=== PATIENT | male | born 1945 | race Caucasian/White ===

== ENCOUNTER → 2016-07-30 | Outpatient (CLI) | payer OTHER ==
[~2016-07-30] MED LIST: ASPEC81 PO; ASPI81TA28 PO; ATOR10TA88 PO; DOXE10CA PO; GLC500 PO; IBUP-1450 PO; LPT40 PO; LPTUNK; LRT5 PO; METF-384 PO; MULTTAB5 PO; PARO1TAB27 PO; PLV75 PO; PXLUNK; REPA2TAB13 PO; SITA100T3 PO; SUGAR PILL; TEST1GEL15 TOP; TOLT2CAP PO
--- NOTE | 2016-07-31 06:22 | PAP/PSG TECHNICIAN REPORT ---
[facility] Distribution Associate Polysomnogram Report Study name: None Report date: 07/31/2016 Study date: 07/30/2016 Referring Physician: YVETTE FINN Name: HAIDER CASTANEDA Interpreting Physician: Arlin Mendiola M.D. Date of : 1945 Distribution Associate: ALEXANDRA Beltran. Sex: Male Age: 71 Study Type: PSG PAP Weight: 201 lbs Height: 71 years, Height 5' 2.5" BMI: 36.17 Medications: METFORMIN 1000 MG, PAROXETINE 20 MG, DOXEPIN 10 MG, TESTOSTERONE 10 MG/ACT, PRANDIN 2 MG, ATORVASTATIN 10 MG, JANUVIA 100 MG, CENTRUM, ASPIRIN 81 MG Patient History 71 yr-old male here for a BiPAP update study. He has been using BiPAP for about five years. He has experienced a return of daytime sleepiness. He is on an auto BiPAP machine at home. He wears a Wisp nasal mask size small from [email or web address]. Per the order, his pressure was started on 12/10 CMH2O, a pressure differential of 2. The test was started on room air and 12/10 CMH2O. ETCO2 testing could not be utilized during this study with BiPAP in use. Room 1 Parameters Monitored NPSG: E1-M2, E2-M1, Fp1-M2, Fp2-M1, F3-M2, F4-M2, F4-M1, C3-M2, C4-M2, C4-M1, O1-M2, O2-M2, O2-M1, T3-M2, T4-M1, P3-M2, P4-M1, CHIN1, CHIN2, HR, EKG, Legs, PFLOW, SNOR, FLOW, CFLOW, Tidal Volume, THOR, ABDO, SpO2, PLTH, CPRESS, ETCO2 Wave, ETCO2, pH Sleep Architecture Sleep Stages Time at Lights Off 10:16:45 PM STAGES Time (min.) TST (%) Time at Lights On 5:29:15 AM Wake 117.0 -- Total Recording Time (TRT) 432.50 min. N1 108.0 34 Total Sleep Period (TSP) 396.5 min. N2 140.5 45 Total Sleep Time (TST) 315.5min. N3 0.0 0 Awake Time 117.0 min. REM 67.0 21 Wake after Sleep Onset 81.5 min. Sleep Efficiency (SE) 73 % Sleep Onset Latency (CRYSTAL) 35.5 min. Number of Stage 1 Shifts None Awakenings 36 Stage Changes 122 Number of REM periods 5 REM 67.0 21 REM Latency 183.5 min. NREM 248.5 79 Body Position Analysis Supine Right Left Side Prone Vertical Total Sleep Time (min.) 57.7 100.0 186.6 286.63 0.0 0.0 Total Sleep Time (%) 9% 32% 59% 91 0% N/A% Total Sleep Time REM (min.) 0.0 0.0 67.0 None 0.0 0.0 Total Sleep Time NREM (min.) 28.9 100.0 119.6 None 0.0 0.0 Intermittent Wake (min.) 28.8 67.1 21.1 None 0.0 0.0 Total Sleep Period (%) 9% None None None None None Arousals Myoclonus (PLM) * Events Count Index Events Count Index Spontaneous 32 6 Events Awake (PLMW) 246 126.2 Respiratory 49 9.5 Events Asleep w/ Arousal (PLMA) 71 13.5 PLM 71 14 Events Asleep w/o Arousal (PLMS) 476 90.5 Snoring 7 1 Total Asleep 547 104.0 Total 159 30 Total 793 110 Respiratory Analysis * CA OA MA CH H RERA Total Count 46 0 1 0 7 9 54 Index 8.7 0.0 0.2 0 1.3 2 12.0 Mean Duration 13.2 0.0 17.3 0.00 18.3 16.8 14.3 Longest Duration 18.5 0.0 17.3 0.00 17.3 19.9 22.6 Respiratory Event Summary Total Supine ~Supine Right Left Prone REM NREM Apneas Count 47 46 1 0 1 N/A 0 47 Index 8.9 96 0 0.0 0.3 N/A 0 11 Hypopneas (4% Desat) Count 7 5 2 1 1 N/A 0 7 Index 1.3 10.4 0 0.6 0.3 N/A 0.0 1.7 Apneas & All Hypopneas Count 54 51 3 1 2 N/A 0 54 Index 10.3 106 1 1 1 N/A 0.0 13.0 Respiratory Events ([employer]+All Hyp+RERA) Count 54 54 9 3 6 N/A 0 54 Index 12.0 112 2 1.8 1.9 N/A 0.0 15.2 Respiratory Related Arousal Count 49 54 8 3 5 N/A 0 50 Index 9.5 87 2 2 2 N/A 0 12 Snoring Analysis Supine Right Left Prone REM NREM Total Snore duration 8.2 min Snores count 83 45 76 N/A 0 204 204 Snore mean duration 2.4 Sec Snores index 173 27 24 N/A 0.0 49.3 38.8 TST with snoring (%) 2.6% Desaturation Event Summary: Minimum %SpO2 Event Count Mean/Min/Max Duration(sec.) Desaturation Index % Time In Bed > 90 47 17.1 / 8.0 / 60.0 8.6 79.2 86 - 90 0 N/A 0.0 18.7 81 - 85 0 N/A 0.0 2.1 76 - 80 0 N/A 0.0 0.0 71 - 75 0 N/A 0.0 0.0 66 - 70 0 N/A 0.0 0.0 61 - 65 0 N/A 0.0 0.0 56 - 60 0 N/A 0.0 0.0 51 - 55 0 N/A 0.0 0.0 < 50 0 N/A 0.0 0.0 Total REM NREM Awake <50% 0.0 min. 0.0 min. 0.0 min. 0.0 min. 51 - 60% 0.0 min. 0.0 min. 0.0 min. 0.0 min. 61 - 70% 0.0 min. 0.0 min. 0.0 min. 0.0 min. 71 - 80% 0.0 min. 0.0 min. 0.0 min. 0.0 min. 81 - 90% 86.4 min. 40.6 min. 30.9 min. 14.9 min. 91 - 100% 328.9 min. 26.4 min. 214.5 min. 87.9 min. Average 91 90 92 91 Minimum SpO2 81 87 87 81 Desaturation Event Index 6.5 0.0 8.9 6.2 # Desat. Events below 89% 4 N/A 3 1 Time(%) with Saturation below 89% 3.2 0.9 0.1 2.2 Time(min.) with Saturation below 89% 13.2 3.7 0.5 9.1 Time (mins) REM (mins) NREM (mins) % of TST SpO2 Below 90% 30 N/A N30 7.0 SpO2 Below 88% 1 0 0 0 Heart Rate Analysis Min (bpm) Max (bpm) Average (bpm) Awake 40 250 81 NREM 63 127 77 REM 68 85 76 Overall 63 127 76 Supplemental O2 Values Minimum O2 level: None Value Start Time End Time Distribution Associate Comments Mr. Castaneda slept in the right, left, and supine positions. Cardiac arrhythmias were noted (please refer to the printouts). PLMs were noted. No bruxism noted. PAP initiated at an IPAP of +12 CMH2O and an EPAP of +10 CMH2O (as stated in the order), and up-titrated to a level of: IPAP +14 CMH2O, EPAP +9 CMH20, BiFlex 2. A rate was added after he changed to the supine position. He had many central apneas while supine and the rate was set at 14 BPM. He did not have any central apneas while he was on his sides. A Wisp nasal mask size small from [employer] was used during titration He awoke to use the restroom one time during the night. Mr. Castaneda stated that he seemed to get into only light sleep for the night. The final report will be interpreted and signed by a sleep physician. The completed physician report will then be placed in the patient medical record. Therapy Event: Therapy (cm H20) 05/10 13/03 12/02 Total Time at Pressure (min.) 292.0 28.4 112.1 TST at Pressure (min.) 185.0 23.9 106.6 # Periods 1 1 1 Sleep Onset (min.) 35.5 0.0 0.0 REM Onset (min.) 219.0 N/A 68.6 Sleep Efficiency % 63 84 95 Wakefulness (%) 36.6 15.8 4.9 Wakefulness (min.) 107.0 4.5 5.5 NREM 1 (%) 23.6 84.2 13.5 NREM 1 (min.) 69.0 23.9 15.1 NREM 2 (%) 28.4 0.0 51.3 NREM 2 (min.) 83.0 0.0 57.5 NREM 3 (%) 0.0 0.0 0.0 NREM 3 (min.) 0.0 0.0 0.0 REM (%) 11.3 0.0 30.3 REM (min.) 33.0 0.0 34.0 # Arousals 77 55 27 Arousal Index 25.0 138.1 15.2 # Snore 90 75 39 Snore Index 29.2 188.3 22.0 AHI 2.3 110.5 1.7 AHI Supine 106.2 110.5 38.0 AHI Non-Supine 0.3 N/A 1.1 NREM AHI 2.8 110.5 2.5 REM AHI 0.0 N/A 0.0 RDI 4.2 118.0 1.7 # Obstructive 0 0 0 # Central Ap 6 38 2 # Mixed 0 1 0 # Hypopneas 1 5 1 RERAS 6 3 0 Total Respiratory Events 13 47 3 Time Below SpO2 89.00% (min.) 3.7 0.3 0.2 Mean NREM SpO2 (%) 92 92 91 Mean REM SpO2 (%) 90 N/A 91 Mean Sleep SpO2 (%) 91 92 91 Min NREM SpO2 (%) 89 88 87 Min REM SpO2 (%) 87 N/A 89 Position Supine (min.) 3.4 23.9 1.6 Position Non-supine (min.) 181.6 0.0 105.0 LM Index Sleep 138.1 138.1 37.2 LM Index NREM 164.2 138.1 42.2 LM Index REM 18.2 N/A 26.5 Mean Heart Rate (bpm) 79 72 73 Min Heart Rate (bpm) 64 65 63 CPAP REPORT Therapy Detail Time / Page # Comment BiLevel 12/10 cm H2O Nasal Mask Flex Pressure Relief Humidifier on 10:14:45 PM / pg. 213 STARTING ON BIPAP WITH A PRESSURE DIFFERENTIAL OF 2 PER DOCTOR'S ORDER AT 12/10 CMH2O BiLevel 13/10 cm H2O Nasal Mask Flex Pressure Relief Humidifier on 3:08:47 AM / pg. 801 INCREASED IPAP FOR RERAS BiLevel 14/9 cm H2O Nasal Mask Flex Pressure Relief Humidifier on 3:37:10 AM / pg. 857 INCREASED IPAP FOR HYPOPNEAS AND DECREASED EPAP TO GAIN A PRESSURE DIFFERENTIAL OF 5 TO START A RATE FOR CENTRAL APNEAS WHILE SUPINE BiLevel 14/9 cm H2O, Rate 14 bpm Nasal Mask Flex Pressure Relief Humidifier on 3:38:59 AM / pg. 861 ADDED A RATE OF 14 FOR CENTRAL APNEAS WHILE SUPINE
--- NOTE | 2016-08-18 08:39 | POLYSOMNOGRAPH REPORT ---
REFERRING PERSON: YVETTE No. INTERPRETING PHYSICIAN: Dr. Arlin Mendiola. PRODUCTION QUALITY ANALYST: Tierra Funk. Mr. Castaneda is a 71-year-old male for updated BiPAP titration study. He has been using BiPAP for 5 years at home. He has experienced the return of his daytime sleepiness despite use. He uses a small Wisp nasal mask by [employer]. Per the order, this titration study will begin at his home pressure of 12/10. Following the technical and digital specifications of the [employer] ([employer]) a standard diagnostic polysomnogram was performed monitoring EEG, EOG, EMG (chin and leg deviations), oxygen saturation, body position, digital video, respiratory effort and airflow. The sleep Stage and event scoring was based on the AASM Manual for the Scoring of Sleep and Associated Events 2007 edition. Apneas are defined as a drop in the peak thermal sensor excursion by >90% of baseline for at least 10 seconds. Hypopneas were scored using the 4% oxygen desaturation rule (4A-[employer]) and a decrease in the nasal pressure excursions by >30% of baseline for at least 10 seconds. Respiratory effort-related arousal (RERA's) is defined as a sequence of breaths lasting at least 10 seconds characterized by increasing respiratory effort or flattening of the nasal pressure waveform leading to an arousal from sleep when the sequence of breaths does not meet criteria for an apnea or hypopnea. Apnea Hypopnea index (AHI) is defined as the number of apneas and hypopneas occurring in an hour of sleep. Respiratory disturbance index (RDI) is defined as the number of apneas, hypopneas, and RERA's occurring in an hour of sleep. Mr. Castaneda's total sleep period time was 396.5 minutes. Total sleep time was 315.5 minutes. Sleep efficiency was 73%. Latency to sleep onset was 35.5 minutes with wake after sleep onset 81.5 minutes. Total non-REM sleep time was 248.5 minutes. He spent 34% of that time in N1 sleep, 45% in N2 sleep, and no time in N3 sleep. REM latency was 183.5 minutes. Total REM sleep time was 67 minutes or 21% of total sleep time. There were 159 cortical arousals from sleep. 49 of these arousals were due to respiratory events, 71 were due to periodic limb movements of sleep, 7 were due to snoring, and the remaining 32 were spontaneous. There were 547 periodic limb movements noted on this test. Limb movement index was 104. Limb movement with arousal index was 13.5. On this sleep study, there were no obstructive, 46 central, and 1 mixed apnea. There were 7 hypopnea and 9 RERA. Apnea-hypopnea index was 10.3. Supine AHI was 106 and REM AHI was 0. There were 204 snoring events recorded. Total sleep time with snoring was 2.6%. Mean saturation was 91% with desaturations to 81%. Saturations were less than 89 for 13.2 minutes of recording time. As stated above, this was a BiPAP titration study that began on this patient's home pressure of 12/10. On 05/10, this patient had some central apneas and his pressure was increased to 13/10. At 3:05 a.m., this patient flipped to supine sleep and this is when the central started. At 3:38 a.m., the patient was placed on BiPAP S/T with an inspiratory pressure of 14 and expiratory pressure of 9 and a backup rate of 14. This essentially eliminated his central events; however, the patient also flipped to non-supine sleep at the same time. AHI and RDI on this pressure were 1.7. Saturations were less than 89 for only 0.2 minutes of recorded time. He was observed on this pressure for 106.6 minutes. IMPRESSION AND PLAN: Successful BiPAP titration study in this patient with known obstructive sleep apnea. When flipping to supine, this patient developed central apnea on bilevel therapy. Coincidentally, he flipped back to non-supine sleep as well as had the addition of a backup rate placed and his central events markedly improved. Given his unrefreshing sleep on bilevel therapy, I would try this patient on BiPAP S/T with an inspiratory pressure of 14 and expiratory pressure of 9 and a backup rate of 14. A download from his machine can be reviewed in 1 month, both to check compliance as well as AHI, and further pressure adjustments can occur at that time.
== END | disposition home or self-care (01) ==
LOC: C.NEUR 20:00
PROVIDERS: ATTEND Family Medicine
DX: G47.33 Obstructive sleep apnea (adult) (pediatric) (principal); G47.00 Insomnia, unspecified; G47.19 Other hypersomnia

== ENCOUNTER 2016-11-29 11:02 | Inpatient (IN) | payer OTHER ==
[~2016-11-29] VITALS: Ht 162.6 cm; Wt 80.0 kg
[~2016-11-29 11:02] MED LIST changes: -ASPEC81 PO; -ASPI81TA28 PO; -ATOR10TA88 PO; -DOXE10CA PO; -IBUP-1450 PO; -LPT40 PO; -METF-384 PO; -MULTTAB5 PO; -PARO1TAB27 PO; -PLV75 PO; -REPA2TAB13 PO; -SITA100T3 PO; -TEST1GEL15 TOP; -TOLT2CAP PO
[2016-11-29] MEDS ORDERED: ATOR10TA88 PO (12:01)
[2016-11-29] MEDS ORDERED: DOXE10CA PO (12:01)
[2016-11-29] MEDS ORDERED: TOLT2CAP PO (12:01)
[2016-11-29] MEDS ORDERED: ASPI81TA28 PO (12:01)
[2016-11-29] MEDS ORDERED: REPA2TAB13 PO (12:01)
[2016-11-29] MEDS ORDERED: METF-384 PO (12:02)
[2016-11-29] MEDS ORDERED: SITA100T3 PO (12:02)
[2016-11-29] MEDS ORDERED: TEST1GEL15 TOP (12:02)
[2016-11-29] MEDS ORDERED: MULTTAB5 PO (12:02)
[2016-11-29] MEDS ORDERED: IBUP-1450 PO (12:02)
[2016-11-29] MEDS ORDERED: PARO1TAB27 PO (12:02)
--- NOTE | 2016-11-29 12:10 | EMERGENCY ROOM VISIT NOTE ---
History Report prepared by Mirna: Fidencio Mota Under the Supervision of: Dr. Amado Calhoun M.D. First contact with patient: 11:52 Chief Complaint: WEAKNESS Stated Complaint: WEAKNESS RIGHT LEG AND ARM Nursing Triage Summary: triage note: pt report "i had a pain in my back yesterday and my leg feels floppy since last night, this morning my right arm has been feeling like i hit my funny bone." History of Present Illness The patient is a 71 year old male who presents to the Emergency Room with complaints of persistent right leg numbness since 2199 last night. The patient started to experience lower back pain prior to the onset of his numbness. He describes the right leg as "being floppy" and making it more difficult to ambulate. The patient started to experience right arm numbness today as well. The arm numbness is described as "feeling like he hit his funny bone." He had Naproxen last night and takes baby aspirin, but denies other blood thinner use. The patient denies fevers, headache, neck pain, trouble speaking or swallowing, or changes in his bowel and urinary habits. He denies any recent falls. The patient was referred to the ED by Josue Knowles earlier today. He denies history of strokes or heart disease. He does have a family history of stroke and TIA. The patient smokes cigars and occasionally drinks alcohol. Source of History: patient, spouse/significant other Onset: 2199 last night Position: leg (right) Quality: numbness Timing: other (persistent) Associated Symptoms: No fevers, No headache, No neck pain Review of Systems See HPI for pertinent positives & negatives. A total of 10 systems reviewed and were otherwise negative. Past Medical & Surgical Medical Problems: (1) Sleep apnea (2) TIA (transient ischemic attack) Old medical records were reviewed. Nurse's notes were reviewed and I agree with. Family History Stroke Social History Smoking Status: Current Every Day Smoker Marital Status: Housing Status: lives with family Current/Historical Medications Scheduled Aspirin (Aspirin Ec), 81 MG PO Q2D Atorvastatin (Lipitor), 10 MG PO DAILY Doxepin (Sinequan), 10 MG PO HS Ibuprofen (Motrin), 600 MG PO TIDM Metformin Hcl (Glucophage), 1,000 MG PO BIDM Multiple Vitamins W/ Minerals (Centrum), 1 TAB PO DAILY Paroxetine (Paxil), 20 MG PO QAM Repaglinide (Prandin), 2 MG PO AC Sitagliptin Phosphate (Januvia), 100 MG PO DAILY Testosterone (Testosterone), 40 MG TOP DAILY Tolterodine Tartrate (Detrol La), 2 MG PO DAILY Allergies Coded Allergies: No Known Allergies (Unverified , 11/29/16) Physical Exam Vital Signs Date Time Temp Pulse Resp B/P (MAP) Pulse Ox O2 Delivery O2 Flow Rate FiO2 11/29/16 13:00 36.5 70 18 92 Room Air 11/29/16 11:15 36.5 68 18 138/81 92 Room Air Physical Exam General: Non ill appearing older male in no acute distress, breathing comfortably on room air. Normal speech. No facial droop or assymetry. GCS 15. HEENT: Normal cephalic atraumatic. Pupils are equal round and reactive to light. Extraocular movements are intact. Oropharynx is pink with moist mucous membranes. No swelling of the mouth lips or tongue. Neck: Supple with a midline trachea. No meningeal signs or stiffness, no JVD or bruits. No Stridor. Chest: Clear to auscultation bilaterally. No wheezes or rhonchi. No increased work of breathing. Heart: regular rate and rhythm. Abdomen: Soft nontender, nondistended without rebound guarding or rigidity. Extremities: No cyanosis clubbing or edema. No calf tenderness or assymetry Spine/Back. Non tender to palpation. No CVA tenderness Skin: Good turgor without rashes. Neurologic exam: Cranial nerves two through 12 are intact. Motor and sensation are intact and symmetrical throughout. 2+ lower extremity reflexes. Right leg appears to give out when ambulating. He is moving the upper extremities extremities without difficulty and has intact sensation to light touch but as complaints of the right arm feeling numb laterally along the ulnar aspect Medical Decision & Procedures ER Provider Diagnostic Interpretation: X-ray results as stated below per interpretation by me and the radiologist: Radiology results as stated below per my review and radiologist interpretation: CHEST ONE VIEW PORTABLE CLINICAL HISTORY: Chest pain. COMPARISON STUDY: No previous studies for comparison. FINDINGS: Lung volumes are normal. There is no pneumothorax or pleural effusion. There is an azygos fissure. Linear left lung opacities are suggestive of atelectasis. There is no evidence of pulmonary edema. There is no consolidation to suggest pneumonia. Cardiac size is at upper limits of normal. IMPRESSION: No acute cardiopulmonary findings. Electronically signed by: Ike Peace M.D. 11/29/2016 12:46 PM Dictated Date/Time: 11/29/2016 12:[address] OF THE HEAD WITHOUT CONTRAST CLINICAL HISTORY: Right arm and leg weakness. COMPARISON STUDY: No previous studies for comparison. TECHNIQUE: Helical axial images of the head were obtained without IV contrast. Automated exposure control was utilized for the study. FINDINGS: No acute intracranial hemorrhage, midline shift or mass effect is present. Ventricular system is normal for age. Basilar cisterns are patent. There are no extra axial collections. There is extensive intracranial vascular calcification. A few white matter hypodensities suggest small vessel disease or old lacunar infarcts. There are no findings to suggest acute dural sinus thrombosis or acute territorial infarct. There are no significant calvarial abnormalities. Visualized portions of the sinuses and mastoid air cells are clear. IMPRESSION: No acute intracranial findings. Electronically signed by: Ike Peace M.D. 11/29/2016 1:06 PM Dictated Date/Time: 11/29/2016 1:[address] LUMBAR SPINE WITHOUT CT DOSE: 1393.96 mGy.cm CLINICAL HISTORY: Right leg weakness. TECHNIQUE: COMPARISON STUDY: None. FINDINGS: For purposes of numbering on this exam, the L5-S1 disc space is assigned to axial image [id number]. Alignment of lumbar spine is anatomic. There is mild loss of height of the inferior endplate of L1 which is chronic. There is slight loss of height with concavity of the superior plate of L1 which is age indeterminate. There is associated lucency along the superior plate which could reflect a Schmorl's node. No definite acute lumbar spine fracture is present. There is no suspicious osseous lesion. Paravertebral soft tissues are unremarkable. Sacroiliac joints are intact. The central canal and neural foramen are suboptimally assessed given CT technique. However, there is no evidence for severe central canal or neural foraminal stenosis. There is disc bulge with a small central disc protrusion at L4-L5. There is suspected mild narrowing of the central canal at this level. IMPRESSION: 1. No definite acute lumbar spine fracture. 2. Slight loss of height of the superior endplate of L1 which represents an age indeterminate compression deformity. Loss of height of the inferior endplate of L1 is chronic. 3. Mild multilevel degenerative disc disease and facet arthrosis of the lumbar spine. Small central disc protrusion at L4-L5 with mild central canal stenosis at this level. Mild multilevel neural foraminal stenosis. Electronically signed by: Ike Peace M.D. 11/29/2016 1:13 PM Dictated Date/Time: 11/29/2016 1:06 PM Laboratory Results 11/29/16 12:20 Red Blood Count 5.08, Mean Corpuscular Volume 90.7, Mean Corpuscular Hemoglobin 30.7, Mean Corpuscular Hemoglobin Concent 33.8, Mean Platelet Volume 10.0, Neutrophils (%) (Auto) 64.5, Lymphocytes (%) (Auto) 22.5, Monocytes (%) (Auto) 7.3, Eosinophils (%) (Auto) 5.1, Basophils (%) (Auto) 0.5, Neutrophils # (Auto) 7.12, Lymphocytes # (Auto) 2.48, Monocytes # (Auto) 0.80, Eosinophils # (Auto) 0.56, Basophils # (Auto) 0.05 11/29/16 12:20 Test 11/29/16 12:20 11/29/16 12:29 White Blood Count 11.02 K/uL (4.8-10.8) Red Blood Count 5.08 M/uL (4.7-6.1) Hemoglobin 15.6 g/dL (14.0-18.0) Hematocrit 46.1 % (42-52) Mean Corpuscular Volume 90.7 fL (80-100) Mean Corpuscular Hemoglobin 30.7 pg (25-34) Mean Corpuscular Hemoglobin Concent 33.8 g/dl (32-36) Platelet Count 267 K/uL (130-400) Mean Platelet Volume 10.0 fL (7.4-10.4) Neutrophils (%) (Auto) 64.5 % Lymphocytes (%) (Auto) 22.5 % Monocytes (%) (Auto) 7.3 % Eosinophils (%) (Auto) 5.1 % Basophils (%) (Auto) 0.5 % Neutrophils # (Auto) 7.12 K/uL (1.4-6.5) Lymphocytes # (Auto) 2.48 K/uL (1.2-3.4) Monocytes # (Auto) 0.80 K/uL (0.11-0.59) Eosinophils # (Auto) 0.56 K/uL (0-0.5) Basophils # (Auto) 0.05 K/uL (0-0.2) RDW Standard Deviation 49.4 fL (36.4-46.3) RDW Coefficient of Variation 14.7 % (11.5-14.5) Immature Granulocyte % (Auto) 0.1 % Immature Granulocyte # (Auto) 0.01 K/uL (0.00-0.02) Prothrombin Time 11.2 SECONDS (9.0-12.0) Prothromb Time International Ratio 1.0 (0.9-1.1) Activated Partial Thromboplast Time 30.2 SECONDS (21.0-31.0) Partial Thromboplastin Ratio 1.2 Anion Gap 6.0 mmol/L (3-11) Est Creatinine Clear Calc Drug Dose 62.9 ml/min Estimated GFR () 86.2 Estimated GFR (Non- 74.3 BUN/Creatinine Ratio 11.3 (10-20) Calcium Level 9.1 mg/dl (8.5-10.1) Total Bilirubin 0.3 mg/dl (0.2-1) Direct Bilirubin < 0.1 mg/dl (0-0.2) Aspartate Amino Transf (AST/SGOT) 17 U/L (15-37) Alanine Aminotransferase (ALT/SGPT) 37 U/L (12-78) Alkaline Phosphatase 86 U/L (45-117) Total Protein 7.6 gm/dl (6.4-8.2) Albumin 3.9 gm/dl (3.4-5.0) Lipase 329 U/L (73-393) Thyroid Stimulating Hormone (TSH) 1.050 uIu/ml (0.300-4.500) Bedside Troponin I < 0.030 ng/ml (0-0.045) Laboratory studies as stated above per my review. Medications Administered Medications (Trade) Dose Ordered Sig/Jamila Route Start Time Stop Time Status Last Admin Dose Admin Aspirin (Aspirin Chew) 324 mg NOW STAT PO 11/29/16 13:43 11/29/16 13:44 DC 11/29/16 13:43 324 MG ECG Indication: weakness Rate (beats per minute): 68 Rhythm: normal sinus Findings: RBBB, no acute ischemic change, no ectopy Comparison ECG Date: no prior available ED Course 1155: Past medical records reviewed. The patient was evaluated in room C11b, and a complete history and physical examination were performed. 1310: The patient is resting comfortably, awaiting test results. 1340: Rechecked the patient. Discussed the plan with him. 1343: Aspirin 324 mg PO. 1352: [facility] The patient will be evaluated. Medical Decision Differential diagnosis includes stroke, peripheral neuropathy, infection, spinal cord process, electrolyte or metabolic abnormality. This patient comes in as described above he is well-appearing he had symptoms since last evening complaining of right leg giving out when he walks also had some back pain and he was concerned because today he also felt like there were some tingling in his right arm since this morning. He looks well on exam and besides his leg symptoms only with walking. His neurologic exam is unremarkable. He has no bowel or bladder problems or anything to suggest cauda equina syndrome at this point. He has no facial asymmetry or droop. There is no trauma. I did a CAT scan of his head was unremarkable a CAT scan of his lumbar spine shows degenerative changes but nothing that would definitely explain his symptoms. He has no significant electrolyte or metabolic abnormalities. He has nothing to suggest acute coronary syndrome or arrhythmia. White count is minimally elevated however he has nothing else to suggest infection. He was given aspirin 324 mg chewable. I'm concerned that this could still be a small central neurologic process and he needs neurologic/ stroke workup. At this point he does not meet criteria for TPA due to the symptoms been going on for many hours overnight and started yesterday. Additionally his symptoms are minimal at this point, stroke scale. I did consult the [facility] to see him in the emergency department and saw him will admit him for these measures. Blood pressure Screening: Patient was found to have normal blood pressure on screening and does not require follow-up. Medication Reconciliation: I attest that I have personally reviewed the patient' s current medication list. Consults Time Called: 1345 Consulting Physician: Dr. [facility]. Returned Call: 1352 The patient will be evaluated. Impression Primary Impression: Right leg weakness Additional Impression: Right arm numbness Scribe Attestation The scribe's documentation has been prepared under my direction and personally reviewed by me in its entirety. I confirm that the note above accurately reflects all work, treatment, procedures, and medical decision making performed by me. Departure Information Dispostion Being Evaluated By Hospitalist Referrals Rainer Cordova D.O. (PCP) Patient Instructions My [facility] Stroke History Time Last Known Well 2200 last night Stroke t-PA Criteria Reviewed Does NOT meet criteria for t-PA Reason t-PA Not Given Contraindicated Problem Qualifiers
[2016-11-29 12:39] LABS: BASO % 0.5 %; BASO ABS # 0.05 K/uL (0-0.2); COMPLETE YES; EOS % 5.1 %; HEMATOCRIT 46.1 % (42-52); IG% 0.1 %; LYMPH % 22.5 %; LYMPH ABS # 2.48 K/uL (1.2-3.4); MEAN CELL VOLUME 90.7 fL (80-100); MEAN CORPUSCULAR HEMOGLOBIN 30.7 pg (25-34); MEAN CORPUSCULAR HGB CONC 33.8 g/dl (32-36); MONO % 7.3 %; NEUT % 64.5 %; PLATELET COUNT 267 K/uL (130-400); RED BLOOD COUNT 5.08 M/uL (4.7-6.1); WHITE BLOOD COUNT 11.02 K/uL (4.8-10.8)
--- NOTE | 2016-11-29 12:47 | DIAGNOSTIC IMAGING REPORT ---
CHEST ONE VIEW PORTABLE CLINICAL HISTORY: Chest pain. COMPARISON STUDY: No previous studies for comparison. FINDINGS: Lung volumes are normal. There is no pneumothorax or pleural effusion. There is an azygos fissure. Linear left lung opacities are suggestive of atelectasis. There is no evidence of pulmonary edema. There is no consolidation to suggest pneumonia. Cardiac size is at upper limits of normal. IMPRESSION: No acute cardiopulmonary findings. Electronically signed by: Ike Peace M.D. 11/29/2016 12:46 PM Dictated Date/Time: 11/29/2016 12:45 PM
[2016-11-29 12:51] LABS: PARTIAL THROMBOPLASTIN RATIO 1.2; PROTHROMBIN TIME (PATIENT) 11.2 SECONDS (9.0-12.0)
[2016-11-29 12:58] LABS: ALT/SGPT 37 U/L (12-78); BLOOD UREA NITROGEN 11 mg/dl (7-18); BUN/CREATININE RATIO 11.3 (10-20); CALCIUM 9.1 mg/dl (8.5-10.1); CARBON DIOXIDE 25 mmol/L (21-32); CHLORIDE 110 mmol/L (98-107); GLUCOSE 64 mg/dl (70-99); SODIUM 141 mmol/L (136-145)
[2016-11-29 13:01] LABS: ALKALINE PHOSPHATASE 86 U/L (45-117); AST/SGOT 17 U/L (15-37)
--- NOTE | 2016-11-29 13:08 | DIAGNOSTIC IMAGING REPORT ---
CT OF THE HEAD WITHOUT CONTRAST CLINICAL HISTORY: Right arm and leg weakness. COMPARISON STUDY: No previous studies for comparison. TECHNIQUE: Helical axial images of the head were obtained without IV contrast. Automated exposure control was utilized for the study. FINDINGS: No acute intracranial hemorrhage, midline shift or mass effect is present. Ventricular system is normal for age. Basilar cisterns are patent. There are no extra axial collections. There is extensive intracranial vascular calcification. A few white matter hypodensities suggest small vessel disease or old lacunar infarcts. There are no findings to suggest acute dural sinus thrombosis or acute territorial infarct. There are no significant calvarial abnormalities. Visualized portions of the sinuses and mastoid air cells are clear. IMPRESSION: No acute intracranial findings. Electronically signed by: Ike Peace M.D. 11/29/2016 1:06 PM Dictated Date/Time: 11/29/2016 1:04 PM
--- NOTE | 2016-11-29 13:14 | DIAGNOSTIC IMAGING REPORT ---
CT LUMBAR SPINE WITHOUT CT DOSE: 1393.96 mGy.cm CLINICAL HISTORY: Right leg weakness. TECHNIQUE: COMPARISON STUDY: None. FINDINGS: For purposes of numbering on this exam, the L5-S1 disc space is assigned to axial image [id number]. Alignment of lumbar spine is anatomic. There is mild loss of height of the inferior endplate of L1 which is chronic. There is slight loss of height with concavity of the superior plate of L1 which is age indeterminate. There is associated lucency along the superior plate which could reflect a Schmorl's node. No definite acute lumbar spine fracture is present. There is no suspicious osseous lesion. Paravertebral soft tissues are unremarkable. Sacroiliac joints are intact. The central canal and neural foramen are suboptimally assessed given CT technique. However, there is no evidence for severe central canal or neural foraminal stenosis. There is disc bulge with a small central disc protrusion at L4-L5. There is suspected mild narrowing of the central canal at this level. IMPRESSION: 1. No definite acute lumbar spine fracture. 2. Slight loss of height of the superior endplate of L1 which represents an age indeterminate compression deformity. Loss of height of the inferior endplate of L1 is chronic. 3. Mild multilevel degenerative disc disease and facet arthrosis of the lumbar spine. Small central disc protrusion at L4-L5 with mild central canal stenosis at this level. Mild multilevel neural foraminal stenosis. Electronically signed by: Ike Peace M.D. 11/29/2016 1:13 PM Dictated Date/Time: 11/29/2016 1:06 PM
[2016-11-29] MEDS ORDERED: ASPIRIN 81 MG CHEW PO STA (13:43)
--- NOTE | 2016-11-29 13:58 | History and Physical ---
History & Physical Date & Time of Service: Nov 29, 2016 at 13:58 Chief Complaint: Weakness Right Leg And Arm Primary Care Physician: Rainer Cordova D.O. History of Present Illness Source: patient This is a 71 yo Male with medical hx of Type 2 DM , hyperlipidemia presented to ER with rt lower ext weakness . 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 , after coming home in evening - started to experience low back pain , mostly on rt side later the evening -felt his rt leg was numb and weak , thought it could be due to his keeping legs crossed while watching TV woke this AM -rt leg weakness continued to persists , had to drag his rt leg , started to have weakness on rt hand mostly along the medial edge /litter finger and ulnar side of rt arm no facial droop noted no headache , no visual symptom pt never had any prior hx of CVA or TIA went to weekend Clinic in [facility] -pt was sent to ED for evaluation of TIA / Stroke like symptom in ED pt continued have rt sided leg weakness , although feels that his symptoms is improving somewhat pt was given 4 x 81 mg Aspirin in ED CT head with out contrast was no acute change MRI of brain shows acute /sub acute small infract on left frontoparietal region MRA of neck : 70 % narrowing of Rt int carotid artery Past Medical/Surgical History Medical Problems: (1) Sleep apnea Status: Chronic Family History Stroke Social History Smoking Status: Current Every Day Smoker Marital Status: Allergies Coded Allergies: No Known Allergies (Unverified , 11/29/16) Home Medications Scheduled Aspirin (Aspirin Ec), 81 MG PO Q2D Atorvastatin (Lipitor), 10 MG PO DAILY Doxepin (Sinequan), 10 MG PO HS Ibuprofen (Motrin), 600 MG PO TIDM Metformin Hcl (Glucophage), 1,000 MG PO BIDM Multiple Vitamins W/ Minerals (Centrum), 1 TAB PO DAILY Paroxetine (Paxil), 20 MG PO QAM Repaglinide (Prandin), 2 MG PO AC Sitagliptin Phosphate (Januvia), 100 MG PO DAILY Testosterone (Testosterone), 40 MG TOP DAILY Tolterodine Tartrate (Detrol La), 2 MG PO DAILY Review of Systems Constitutional: No fever, No chills, No sweats, No weight loss, No weakness, No fatigue, No problem reported ENT: No hearing loss, No unusual epistaxis, No nasal symptoms, No sore throat, No tinnitus, No dental problems, No trouble swallowing, No problem reported Respiratory: No cough, No sputum, No wheezing, No shortness of breath, No dyspnea on exertion, No dyspnea at rest, No hemoptysis, No problem reported Cardiovascular: No chest pain, No orthopnea, No PND, No edema, No claudication , No palpitations, No problem reported Abdomen: No pain, No nausea, No vomiting, No diarrhea, No constipation, No GI bleeding, No problem reported Musculoskeletal: + problem reported (back pain ) Neurologic: + weakness (rt lower ext , rt arm ), + balance problems (due to rt lower ext weakness ) Physical Exam Vital Signs Date Time Temp Pulse Resp B/P (MAP) Pulse Ox O2 Delivery O2 Flow Rate FiO2 11/29/16 11:15 36.5 68 18 138/81 92 Room Air General Appearance: no apparent distress Head: normocephalic, atraumatic Eyes: PERRL, EOMI, sclerae normal Neck: no JVD Respiratory/Chest: chest non-tender, lungs clear, normal breath sounds, no respiratory distress Cardiovascular: regular rate, rhythm, no JVD, no murmur Abdomen/GI: normal bowel sounds, non tender, soft Extremities/Musculoskelatal: no calf tenderness, normal capillary refill, no pedal edema, normal range of motion Neurologic/Psych: alert, normal mood/affect, + abnormal gait (rt sided weakness ), + motor weakness (rt lower ext weakness ) Skin: normal color, warm/dry, no rash Lymphatic: no adenopathy Diagnostics Laboratory Results Results Past 24 Hours Test 11/29/16 12:20 11/29/16 12:29 Range/Units White Blood Count 11.02 4.8-10.8 K/uL Red Blood Count 5.08 4.7-6.1 M/uL Hemoglobin 15.6 14.0-18.0 g/dL Hematocrit 46.1 42-52 % Mean Corpuscular Volume 90.7 80-100 fL Mean Corpuscular Hemoglobin 30.7 25-34 pg Mean Corpuscular Hemoglobin Concent 33.8 32-36 g/dl Platelet Count 267 130-400 K/uL Mean Platelet Volume 10.0 7.4-10.4 fL Neutrophils (%) (Auto) 64.5 % Lymphocytes (%) (Auto) 22.5 % Monocytes (%) (Auto) 7.3 % Eosinophils (%) (Auto) 5.1 % Basophils (%) (Auto) 0.5 % Neutrophils # (Auto) 7.12 1.4-6.5 K/uL Lymphocytes # (Auto) 2.48 1.2-3.4 K/uL Monocytes # (Auto) 0.80 0.11-0.59 K/uL Eosinophils # (Auto) 0.56 0-0.5 K/uL Basophils # (Auto) 0.05 0-0.2 K/uL RDW Standard Deviation 49.4 36.4-46.3 fL RDW Coefficient of Variation 14.7 11.5-14.5 % Immature Granulocyte % (Auto) 0.1 % Immature Granulocyte # (Auto) 0.01 0.00-0.02 K/uL Prothrombin Time 11.2 9.0-12.0 SECONDS Prothromb Time International Ratio 1.0 0.9-1.1 Activated Partial Thromboplast Time 30.2 21.0-31.0 SECONDS Partial Thromboplastin Ratio 1.2 Sodium Level 141 136-145 mmol/L Potassium Level 4.0 3.5-5.1 mmol/L Chloride Level 110 98-107 mmol/L Carbon Dioxide Level 25 21-32 mmol/L Anion Gap 6.0 3-11 mmol/L Blood Urea Nitrogen 11 7-18 mg/dl Creatinine 1.00 0.60-1.40 mg/dl Est Creatinine Clear Calc Drug Dose 62.9 ml/min Estimated GFR () 86.2 Estimated GFR (Non- 74.3 BUN/Creatinine Ratio 11.3 10-20 Random Glucose 64 70-99 mg/dl Calcium Level 9.1 8.5-10.1 mg/dl Total Bilirubin 0.3 0.2-1 mg/dl Direct Bilirubin < 0.1 0-0.2 mg/dl Aspartate Amino Transf (AST/SGOT) 17 15-37 U/L Alanine Aminotransferase (ALT/SGPT) 37 12-78 U/L Alkaline Phosphatase 86 45-117 U/L Total Protein 7.6 6.4-8.2 gm/dl Albumin 3.9 3.4-5.0 gm/dl Lipase 329 73-393 U/L Bedside Troponin I < 0.030 0-0.045 ng/ml Diagnostic Radiology MRI OF BRAIN : IMPRESSION: Small acute infarct within the periventricular left frontotemporal region. No mass effect or hemorrhagic conversion. MRA OF NECK IMPRESSION: 1. Short segment stenosis of the proximal right internal carotid artery with approximately 70% narrowing. 2. No significant stenosis within the left internal carotid artery or the bilateral common carotid arteries. MRA OF BRAIN : IMPRESSION: 1. No abrupt vessel cut off or intracranial aneurysm identified. 2. Unremarkable MRA for age. 3. Study mildly compromised by motion artifact. CT OF THE HEAD WITHOUT CONTRAST CLINICAL HISTORY: Right arm and leg weakness. COMPARISON STUDY: No previous studies for comparison. TECHNIQUE: Helical axial images of the head were obtained without IV contrast. Automated exposure control was utilized for the study. FINDINGS: No acute intracranial hemorrhage, midline shift or mass effect is present. Ventricular system is normal for age. Basilar cisterns are patent. There are no extra axial collections. There is extensive intracranial vascular calcification. A few white matter hypodensities suggest small vessel disease or old lacunar infarcts. There are no findings to suggest acute dural sinus thrombosis or acute territorial infarct. There are no significant calvarial abnormalities. Visualized portions of the sinuses and mastoid air cells are clear. IMPRESSION: No acute intracranial findings. CT OF LUMBER SPINE : IMPRESSION: 1. No definite acute lumbar spine fracture. 2. Slight loss of height of the superior endplate of L1 which represents an age indeterminate compression deformity. Loss of height of the inferior endplate of L1 is chronic. 3. Mild multilevel degenerative disc disease and facet arthrosis of the lumbar spine. Small central disc protrusion at L4-L5 with mild central canal stenosis at this level. Mild multilevel neural foraminal stenosis. Impression Assessment and Plan ACUTE CVA : on left frontoparietal distribution causing rt sided weakness symptoms gradually improving vitals remains stable no headache ,no visual symptoms, MRA of neck shows 70 % right sided ICA stenosis -Vascular surgery consulted Carotid Doppler pending MRA Of brain -no stenosis [place] no prior hx of TIA /or CVA Family hx : Brother had 2-3 TIA episode at age 50's , Mother had CVA at age 54 ; pt was given full strength aspirin in ED will start him on Plavix one dose to be given now high intensity Stain therapy -increase Lipitor to 80 mg ( was on 10 mg daily ) allow permissive HTN to improve cerebral perfusion further stroke work up : ECHO to assess for cardiac thrombus Tele monitoring for arrhythmia will need Cardio Net /Zip Patch on discharge to assess for paroxysmal afib ( if not arrhythmia noted during in patient stay ) PT/OT eval no report of dysphagia ordered for fasting lipid panel in AM and Hb A1c to assess nhi factors Neurology eval requested Case D/w Dr Guzman TYPE 2 DM : hold metformin /Glipizide insulin sliding scale HB a1 c in AM lab HYPERLIPIDEMIA : Stain/ Lipitor dose increased to 80 mg daily -for benefit of high intensity statin in setting of acute CVA Fasting lipid panel in AM FULL CODE DVT PROPHYLAXIS : sub q heparin pt is encouraged to ambulate DISPOSITION : PT/OT eval prior to discharge home Medicine follow up with Dr Cordova will need continued Neurology and Vascular surgery follow up Level of Care Critical Care Resuscitation Status FULL RESUSCITATION VTE Prophylaxis VTE Risk Assessment Done? Y/N: Yes Risk Level: Moderate Given or contraindicated: Unfractionated heparin SQ Additional Copies To Eligio García M.D.; Rainer Cordova D.O. Mateer, John, M.D. (MEDICINE)
[2016-11-29] MEDS ORDERED: POLYETHYLENE (MIRALAX) 17 GM PACK PO PRN (14:00)
[2016-11-29] MEDS ORDERED: NITROGLYCERIN 0.4 MG SL PER TAB CHARGE SL PRN (14:00)
[2016-11-29] MEDS ORDERED: ONDANSETRON INJ 2 MG/ML 2 ML VIAL IV PRN (14:00)
[2016-11-29] MEDS ORDERED: ACETAMINOPHEN 325 MG TAB PO PRN (14:00)
[2016-11-29] MEDS ORDERED: ALUMINUM/MAGNESIUM/SIMETH (MAALOX MAX) 30 ML UDC PO PRN (14:00)
[2016-11-29] MEDS ORDERED: MAGNESIUM HYDROXIDE SUSP 30 ML UDC PO PRN (14:00)
[2016-11-29] MEDS ORDERED: PHARMACIST DISCHARGE MED REC CONSULT PRN (14:00)
[2016-11-29] MEDS ORDERED: IV FLUIDS COMPLETED PRN (14:15)
[2016-11-29 14:47] VITALS: O2SAT 98; Ht 162.6 cm; Wt 80.0 kg
[2016-11-29 15:05] VITALS: O2SAT 99
--- NOTE | 2016-11-29 16:41 | DIAGNOSTIC IMAGING REPORT ---
MRI OF THE BRAIN WITHOUT AND WITH IV CONTRAST CLINICAL HISTORY: Stroke. Right arm and leg weakness. COMPARISON STUDY: Head CT performed earlier today. TECHNIQUE: Utilizing a 1.5 Cookie magnet and dedicated coil, multiplanar, multiecho imaging of the brain was performed pre and postcontrast administration. IV administration of 8 mL of Gadavist contrast was uneventful. FINDINGS: There is a 1.1 cm focus of restricted diffusion within the periventricular left frontotemporal region shown on axial image 15 of 46. No additional areas of restricted diffusion are present. No acute intracranial hemorrhage, midline shift or mass effect is present. Ventricular dilatation is due to atrophy. Basilar cisterns are patent. There is no intracranial mass or pathologic enhancement. Numerous scattered white matter T2 hyperintense foci suggest small vessel disease. Calvarial signal is maintained. Flow-voids for the major intracranial vessels are present. IMPRESSION: Small acute infarct within the periventricular left frontotemporal region. No mass effect or hemorrhagic conversion. Electronically signed by: Ike Peace M.D. 11/29/2016 4:39 PM Dictated Date/Time: 11/29/2016 4:35 PM
[2016-11-29] MEDS ORDERED: GADAVIST IV PRN (16:45)
--- NOTE | 2016-11-29 17:20 | DIAGNOSTIC IMAGING REPORT ---
MRA OF THE NECK WITH AND WITHOUT CONTRAST CLINICAL HISTORY: Stroke. COMPARISON STUDY: None. TECHNIQUE: Unenhanced and contrast-enhanced MRA of the neck was performed. Injection of 8 mL of Gadavist IV was uneventful. NASCET criteria were utilized to estimate the degree of carotid stenosis. FINDINGS: There is no significant stenosis within the bilateral common carotid arteries. There is mild irregularity of the proximal left internal carotid artery without significant stenosis of this vessel. There is focal stenosis of the proximal right internal carotid artery. The vessel measures approximately 1.8 mm in caliber at this level. Distally, this vessel measures approximately 4.8 mm. The findings suggest approximately 70% stenosis. The left vertebral artery is dominant and patent. No significant stenosis is identified within the bilateral vertebral arteries with exception of possible mild stenosis at origin of the left vertebral artery. The distal right vertebral artery is diminutive. IMPRESSION: 1. Short segment stenosis of the proximal right internal carotid artery with approximately 70% narrowing. 2. No significant stenosis within the left internal carotid artery or the bilateral common carotid arteries. Electronically signed by: Ike Peace M.D. 11/29/2016 5:19 PM Dictated Date/Time: 11/29/2016 5:11 PM
[2016-11-29] MEDS ORDERED: GLUCOSE 40% GEL 15 GM TUBE PO PRN (17:30)
[2016-11-29] MEDS ORDERED: GLUCOSE 10 TABS/TUBE PO PRN (17:30)
[2016-11-29] MEDS ORDERED: GLUCAGON FOR INJ 1 MG VIAL SQ PRN (17:30)
[2016-11-29] MEDS ORDERED: DEXTROSE 50% 50 ML SYR IV PRN (17:30)
--- NOTE | 2016-11-29 17:41 | DIAGNOSTIC IMAGING REPORT ---
MRA OF THE INTRACRANIAL CIRCULATION WITHOUT CONTRAST CLINICAL HISTORY: Stroke - Attention to [place]. Right arm and leg weakness. COMPARISON STUDY: Head CT performed earlier today. TECHNIQUE: Utilizing a 1.5 Cookie magnet and 3-D [id number] technique, unenhanced MRA of the intracranial circulation was obtained. FINDINGS: This exam is mildly compromised by motion artifact. No abrupt vessel cut off is identified on this examination. No aneurysm is identified although sensitivity is for detection of small aneurysms is diminished on this examination. There is mild intracranial vascular irregularity due to atherosclerosis. The right A1 segment is hypoplastic. IMPRESSION: 1. No abrupt vessel cut off or intracranial aneurysm identified. 2. Unremarkable MRA for age. 3. Study mildly compromised by motion artifact. Electronically signed by: Ike Peace M.D. 11/29/2016 5:40 PM Dictated Date/Time: 11/29/2016 4:30 PM
[2016-11-29] MEDS ORDERED: CLOPIDOGREL BISULFATE 75 MG TAB PO ONE (17:45)
--- NOTE | 2016-11-29 18:55 | DIAGNOSTIC IMAGING REPORT ---
CAROTID ARTERY ULTRASOUND CLINICAL HISTORY: Stroke COMPARISON STUDY: MRA of the neck performed earlier today. TECHNIQUE: Real-time, grayscale, and color Doppler sonography of the carotid and vertebral arteries was performed. Images were viewed in the transverse and longitudinal planes. FINDINGS: There is mild to moderate atherosclerotic plaque. Velocity measurements are listed below. COMMON CAROTID PEAK SYSTOLIC VELOCITY (CM/S): RIGHT 78 LEFT 91 ICA PEAK SYSTOLIC VELOCITY (CM/S): RIGHT 157 LEFT 94 The systolic ratio between the right internal to common carotid artery is mildly elevated at 2. Antegrade flow is seen in the vertebral arteries. The external carotid arteries are patent. Blood pressure in the right arm measured 130/81. Blood pressure in the left arm measured 128/70. IMPRESSION: Findings suggestive of a 50-69% stenosis of the proximal right internal carotid artery. Electronically signed by: Ike Peace M.D. 11/29/2016 6:53 PM Dictated Date/Time: 11/29/2016 6:51 PM
[2016-11-29 19:40] VITALS: BP 123/66; PULSE 69; TEMP 36.7; O2SAT 93
[2016-11-29] MEDS: INSULIN ASPART 100 UNITS/ML 3 ML PEN SC SCH (20:43)
[2016-11-29] MEDS: DOXEPIN HCL 10 MG CAP PO SCH (20:43)
[2016-11-29] MEDS: HEPARIN SOD 5000 UNIT/0.5 ML CARP SQ SCH (20:47)
[2016-11-29] MEDS ORDERED: ATORVASTATIN 10 MG TAB PO SCH (21:00)
[2016-11-29] MEDS ORDERED: ATORVASTATIN 40 MG TAB PO SCH (21:00)
[2016-11-29 23:14] VITALS: BP 152/73; PULSE 65; TEMP 36.8; O2SAT 93
[2016-11-30 04:32] VITALS: BP 143/86; PULSE 73; TEMP 36.4; O2SAT 96
[2016-11-30 05:54] LABS: HEMATOCRIT 46.7 % (42-52); MEAN CELL VOLUME 91.7 fL (80-100); MEAN CORPUSCULAR HEMOGLOBIN 31.2 pg (25-34); MEAN PLATELET VOLUME 10.3 fL (7.4-10.4); PLATELET COUNT 245 K/uL (130-400); RED BLOOD COUNT 5.09 M/uL (4.7-6.1)
[2016-11-30] MEDS: HEPARIN SOD 5000 UNIT/0.5 ML CARP SQ SCH ×3 (06:20→21:39)
[2016-11-30 06:31] LABS: CHOLESTEROL/HDL RATIO 2.5
[2016-11-30 06:55] VITALS: BP 143/86; PULSE 64; TEMP 36.7; O2SAT 95
[2016-11-30] MEDS: CLOPIDOGREL BISULFATE 75 MG TAB PO SCH (08:32)
[2016-11-30] MEDS: CEROVITE ADV FORMULA TAB PO SCH (08:32)
[2016-11-30] MEDS: ASPIRIN 81 MG ECTAB PO SCH (08:32)
[2016-11-30] MEDS: TOLTERODINE TARTRATE LA 2 MG CAPCR PO SCH (08:32)
[2016-11-30] MEDS: PAROXETINE 20 MG TAB PO SCH (08:32)
[2016-11-30] MEDS: INSULIN ASPART 100 UNITS/ML 3 ML PEN SC SCH ×4 (08:34→21:40)
[2016-11-30 09:57] LABS: MANUAL MICROSCOPIC REQUIRED? NO; REVIEW REQ? NO; URINE APPEARANCE CLEAR (CLEAR); URINE BILIRUBIN NEG (NEG); URINE COLOR YELLOW; URINE NITRITE NEG (NEG); URINE SPECIFIC GRAVITY 1.014 (1.000-1.030); UROBILINOGEN NEG (NEG); ZZUR CULT IF INDIC CLEAN CATCH NO
[2016-11-30 11:22] VITALS: BP 123/77; PULSE 61; TEMP 36.8; O2SAT 93
--- NOTE | 2016-11-30 11:53 | Neurology Consultation ---
Neurology Consultation Date of Consultation: Nov 30, 2016. Attending Physician: Lorin Kay M.D. Primary Care Physician: Rainer Cordova D.O. 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 on mri with mra showing incidental right carotid bifurcation stenosis of about 70% Currently better but still has clumsy right leg and gait instability No reported headache vertigo visual loss or paresthesias of foot and leg only of hand and these are much improved no visual complaints issues with speech comprehension reading etc Discussed management with Dr Kay yesterday and plan to add plavix to current asa and obtaining cardiac evaluation and likely outpatien zio patch/cardionet along with pt ot speech evaluations All of the latter are currently underway All of this occurs in the setting of mild dyslipidemia and asociated metabolic syndrome/prediabetes and in the setting of chronic rx with asa Past Medical/Surgical History Medical Problems: (1) Right arm numbness Status: Acute (2) Right leg weakness Status: Acute Family History Mother: stroke Sibling(s): stroke Social History Smoking Status: Current every day smoker Alcohol Use: socially Marital Status: Housing Status: lives with family Allergies Coded Allergies: No Known Allergies (Unverified , 11/29/16) Current Inpatient Medications Current Inpatient Medications Medications (Trade) Dose Ordered Sig/Jamila Route Start Time Stop Time Status Last Admin Dose Admin Aspirin (Ecotrin Tab) 81 mg QAM PO 11/30/16 09:00 12/30/16 08:59 11/30/16 08:32 81 MG Miscellaneous Information (Pharmacist Discharge Med Rec Consult) 1 ea UD PRN N/A 11/29/16 14:00 12/29/16 13:59 Heparin Sodium (Porcine) (Heparin Sq 5000 Unit/0.5ml) 5,000 unit Q8 SQ 11/29/16 22:00 12/29/16 13:59 11/30/16 06:20 5,000 UNIT Acetaminophen (Tylenol Tab) 650 mg Q4H PRN PO 11/29/16 14:00 12/29/16 13:59 Al Hydrox/Mg Hydrox/Simethicone (Maalox Max Susp) 15 ml Q4H PRN PO 11/29/16 14:00 12/29/16 13:59 Magnesium Hydroxide (Milk Of Magnesia Susp) 30 ml Q12H PRN PO 11/29/16 14:00 12/29/16 13:59 Ondansetron HCl (Zofran Inj) 4 mg Q6H PRN IV 11/29/16 14:00 12/29/16 13:59 Nitroglycerin (Nitrostat Tab) 0.4 mg UD PRN SL 11/29/16 14:00 12/29/16 13:59 Polyethylene (Miralax Powder Packet) 17 gm DAILY PRN PO 11/29/16 14:00 12/29/16 13:59 Miscellaneous (Iv Fluids Completed) 1 ea PRN PRN N/A 11/29/16 14:15 11/29/17 14:14 Gadobutrol (Gadavist) 8 mmol UD PRN IV 11/29/16 16:45 12/03/16 16:44 Insulin Aspart (novoLOG ASPART) SLIDING SCALE If C... ACHS SC 11/29/16 21:00 12/29/16 20:59 11/30/16 08:34 3 UNITS Glucose (Glucose 40% Gel) 15-30 GRAMS 15 GRAMS... UD PRN PO 11/29/16 17:30 12/29/16 17:29 Glucose (Glucose Chew Tab) 4-8 Tablets 4 Tabl... UD PRN PO 11/29/16 17:30 12/29/16 17:29 Dextrose (Dextrose 50% 50ML Syringe) 25-50ML OF 50% DW IV FOR... UD PRN IV 11/29/16 17:30 12/29/16 17:29 Glucagon (Glucagon Inj) 1 mg UD PRN SQ 11/29/16 17:30 12/29/16 17:29 Clopidogrel Bisulfate (plAVix TAB) 75 mg QAM PO 11/30/16 09:00 12/30/16 08:59 11/30/16 08:32 75 MG Doxepin HCl (Sinequan Cap) 10 mg HS PO 11/29/16 21:00 12/29/16 20:59 11/29/16 20:43 10 MG Multivitamins/ Minerals (Multivitamin W/ Minerals Tab) 1 tab DAILY PO 11/30/16 09:00 12/30/16 08:59 11/30/16 08:32 1 TAB Paroxetine HCl (pAXil TAB) 20 mg QAM PO 11/30/16 09:00 12/30/16 08:59 11/30/16 08:32 20 MG Tolterodine Tartrate (Detrol LA Cap) 2 mg DAILY PO 11/30/16 09:00 12/30/16 08:59 11/30/16 08:32 2 MG Atorvastatin Calcium (Lipitor Tab) 80 mg PM PO 11/29/16 21:00 12/29/16 20:59 11/29/16 20:42 80 MG Review of Systems Constitutional: No fever, No chills, No sweats, No weight loss, No weakness, No fatigue, No problem reported Eyes: No worsening of vision, No eye pain, No redness, No discharge, No diplopia, No problem reported ENT: No hearing loss, No unusual epistaxis, No nasal symptoms, No sore throat, No tinnitus, No dental problems, No trouble swallowing, No problem reported Respiratory: No cough, No sputum, No wheezing, No shortness of breath, No dyspnea on exertion, No dyspnea at rest, No hemoptysis, No problem reported Cardiovascular: No chest pain, No orthopnea, No PND, No edema, No claudication , No palpitations, No problem reported Abdomen: No pain, No nausea, No vomiting, No diarrhea, No constipation, No GI bleeding, No problem reported Musculoskeletal: No joint pain, No muscle pain, No swelling, No calf pain, No problem reported Genitourinary - Male: No hematuria, No dysuria, No urinary frequency, No urinary urgency, No urinary hesitancy, No urinary retention, No urinary incontinence, No penile discharge, No lesions, No impotence, No problem reported Neurologic: + memory loss, + paralysis, + weakness, + numbness/tingling, + vertigo, + balance problems, + problem reported Psychiatric: No depression symptoms, No anhedonism, No anxiety, No insomnia, No substance abuse, No problem reported Endocrine: No fatigue, No excessive thirst, No excessive urination, No problem reported Hematologic / Lymphatic: No abnormal bleeding/bruising, No clotting problems, No swollen lymph nodes, No night sweats, No problem reported Integumentary: No rash, No itch, No new/changing skin lesions, No color change , No bleeding, No problem reported Allergic / Immunologic: No environmental allergies, No seasonal allergies, No pet sensitivities, No food allergies, No hives, No frequent infections, No poor healing, No prolonged convalescence, No problem reported Physical Exam Vital Signs (Past 24 Hrs): Date Time Temp Pulse Resp B/P (MAP) Pulse Ox O2 Delivery O2 Flow Rate FiO2 11/30/16 11:22 36.8 61 18 123/77 (92) 93 Room Air 11/30/16 09:12 Room Air 11/30/16 07:45 Room Air 11/30/16 06:55 36.7 64 20 143/86 (105) 95 Room Air 11/30/16 04:32 36.4 73 18 143/86 (105) 96 Room Air 11/30/16 04:05 Room Air 11/30/16 00:05 Room Air 11/29/16 23:14 36.8 65 18 152/73 (99) 93 Room Air 11/29/16 20:05 Room Air 11/29/16 19:40 36.7 69 16 123/66 (85) 93 Room Air 11/29/16 15:05 70 16 128/70 99 11/29/16 14:47 98 Room Air 11/29/16 14:31 81 11/29/16 14:09 71 20 164/87 98 Room Air 11/29/16 13:00 36.5 70 18 92 Room Air HEENT: Normal NECK: no bruits LUNGS: Clear CARDIAC : no murmurs and normal rhythm ABDOMEN: Soft no masses EXTREMITIES: No edema good pulses NEUROLOGIC: Cranial nerves normal clear speech no facial weakness or loss of sensation normal eoms and cooney and gross acuity fundi not seen Gait Station and Coordination show clumsy right leg and mild drift of right arm consistent with an upper motor neuron process and DTRS on the right are brisk with a soft toe sign and no Morin Sensation is normal to vibration and light touch and temperature save for some slight diminished touch on right ulnar aspect of hand Laboratory Results Past 24 Hours: 11/30/16 05:11 11/29/16 12:20 Test 11/29/16 12:20 11/29/16 12:29 11/30/16 00:00 11/30/16 05:11 Immature Granulocyte % (Auto) 0.1 % White Blood Count 11.02 K/uL (4.8-10.8) Red Blood Count 5.08 M/uL (4.7-6.1) 5.09 M/uL (4.7-6.1) Hemoglobin 15.6 g/dL (14.0-18.0) Hematocrit 46.1 % (42-52) Mean Corpuscular Volume 90.7 fL (80-100) 91.7 fL (80-100) Mean Corpuscular Hemoglobin 30.7 pg (25-34) 31.2 pg (25-34) Mean Corpuscular Hemoglobin Concent 33.8 g/dl (32-36) 34.0 g/dl (32-36) Platelet Count 267 K/uL (130-400) Mean Platelet Volume 10.0 fL (7.4-10.4) 10.3 fL (7.4-10.4) Neutrophils (%) (Auto) 64.5 % Lymphocytes (%) (Auto) 22.5 % Monocytes (%) (Auto) 7.3 % Eosinophils (%) (Auto) 5.1 % Basophils (%) (Auto) 0.5 % Neutrophils # (Auto) 7.12 K/uL (1.4-6.5) Lymphocytes # (Auto) 2.48 K/uL (1.2-3.4) Monocytes # (Auto) 0.80 K/uL (0.11-0.59) Eosinophils # (Auto) 0.56 K/uL (0-0.5) Basophils # (Auto) 0.05 K/uL (0-0.2) Immature Granulocyte # (Auto) 0.01 K/uL (0.00-0.02) Prothrombin Time 11.2 SECONDS (9.0-12.0) Prothromb Time International Ratio 1.0 (0.9-1.1) Activated Partial Thromboplast Time 30.2 SECONDS (21.0-31.0) Partial Thromboplastin Ratio 1.2 Anion Gap 6.0 mmol/L (3-11) Est Creatinine Clear Calc Drug Dose 62.9 ml/min Estimated GFR () 86.2 Estimated GFR (Non- 74.3 BUN/Creatinine Ratio 11.3 (10-20) Calcium Level 9.1 mg/dl (8.5-10.1) Total Bilirubin 0.3 mg/dl (0.2-1) Direct Bilirubin < 0.1 mg/dl (0-0.2) Aspartate Amino Transf (AST/SGOT) 17 U/L (15-37) Alanine Aminotransferase (ALT/SGPT) 37 U/L (12-78) Alkaline Phosphatase 86 U/L (45-117) Total Protein 7.6 gm/dl (6.4-8.2) Albumin 3.9 gm/dl (3.4-5.0) Lipase 329 U/L (73-393) Thyroid Stimulating Hormone (TSH) 1.050 uIu/ml (0.300-4.500) Bedside Troponin I < 0.030 ng/ml (0-0.045) Urine Color YELLOW Urine Appearance CLEAR (CLEAR) Urine pH 6.0 (4.5-7.5) Urine Specific [place] 1.014 (1.000-1.030) Urine Protein NEG (NEG) Urine Glucose (UA) NEG (NEG) Urine Ketones NEG (NEG) Urine Occult Blood NEG (NEG) Urine Nitrite NEG (NEG) Urine Bilirubin NEG (NEG) Urine Urobilinogen NEG (NEG) Urine Leukocyte Esterase NEG (NEG) RDW Standard Deviation 49.8 fL (36.4-46.3) RDW Coefficient of Variation 14.7 % (11.5-14.5) Triglycerides Level 105 mg/dl (0-150) Cholesterol Level 94 mg/dl (0-200) HDL Cholesterol 38 mg/dl LDL Cholesterol, Calculated 35 mg/dl VLDL Cholesterol, Calculated 21 mg/dl Cholesterol/HDL Ratio 2.5 Test 11/30/16 07:43 Bedside Glucose 103 mg/dl (70-99) Imaging MRI of brain and MRA of cervical and intracranial vessels reviewed and actual images reviewed with the patient in his room Results are consistent with a deep likely primary small vessel event in the deep posterior portions of the left hemisphere involving capsular fibers yet with primarily motor and few sensory deficits suggestive of a "lacunar event " The right carotid stenosis is incidental Impression Deep likely small vessel event in left hemisphere with underlying risk factors of glucose intolerance and possible well treated dyslipidemia Plan Management as per the usual post cva protocol ie permissive hypertension, outpatient fine tuning of risk factors ( currently well underway ) which include a metabolic syndrome picture primarily, pt ot speech assessments and possible need fo inpatient rehab ( doubt based on my evaluation today ), add plavix to asa, follow up on echo results, outpatient zio patch/cardionet, and follow up with neurology in about four to six weeks post discharge Vilma Newton and Vilma Edwards MD to follow up tomorrow
[2016-11-30 14:59] VITALS: BP 121/73; PULSE 74; TEMP 36.8; O2SAT 95
--- NOTE | 2016-11-30 18:12 | Progress Note ---
Internal Med Progress Note Date of Service: Nov 30, 2016. Provider Documentation: SUBJECTIVE: feels his weakness on rt hand and arm has improved still has weakness on rt leg /foot -had PT eval earlier pt does much better with walker managed to walk on [address] no headache , no blurred vision no complain of chest pain /SOB or [place] OBJECTIVE: Vital Signs-as noted below Exam: General-no sign of distress Eyes-PERRLA/EOMI ENT-NAD Neck-no JVD Lungs-CTA ,no wheeze or rales Heart-regular S1/S2 Abdomen-soft, non tender Extremities-no rash or edema Neuro-no facial deviation , no tongue deviation , weakness on rt leg , improved strength on rt hand, normal exam of left upper and lower ext Lab data as noted below. ASSESSMENT & PLAN: ACUTE CVA : on left frontoparietal distribution causing rt sided weakness symptoms gradually improving vitals remains stable no headache ,no visual symptoms, MRA of neck shows 70 % right sided ICA stenosis -Vascular surgery consulted Carotid Doppler : IMPRESSION: Findings suggestive of a 50-69% stenosis of the proximal right internal carotid artery. doubt the moderate to minimum carotid stenosis is source of embolic -being opposite side -will need repeat carotid USG as out pt for monitoring MRA Of brain -no stenosis [place] no prior hx of TIA /or CVA Family hx : Brother had 2-3 TIA episode at age 50's , Mother had CVA at age 54 ; cont Aspirin /Plavix /statin will need Cardio Net /Zip Patch on discharge to assess for paroxysmal afib ( if not arrhythmia noted during in patient stay ) PT/OT eval appreciated recommend out pt PT /assisted device Rolling walker for gait disturbance script given pt should not drive till evaluated by Neurology fasting lipid panel shows well controlled lipid profile with LDL 35 reduce Lipitor dose to 40 mg daily Neurology eval requested -appreciate input form Dr Guzman office follow up in 6 weeks TYPE 2 DM : hold metformin /Glipizide -can be resumed on discharged insulin sliding scale HB a1 c in AM lab HYPERLIPIDEMIA : Stain/ Lipitor dose adjusted to 40 mg daily( was on 10 mg daily ) -for benefit of high intensity statin in setting of acute CVA Fasting lipid panel repeat in 6-8 months then yearly FULL CODE DVT PROPHYLAXIS : sub q heparin pt is encouraged to ambulate DVT PROPHYLAXIS sub q heparin DISPOSITION possible discharge home tomorrow will need Physical therapy out pt will need Neurology follow up in 6 weeks will need arrangement for Zio patch /Cardio Net as out pt Vital Signs: Date Time Temp Pulse Resp B/P (MAP) Pulse Ox O2 Delivery O2 Flow Rate FiO2 11/30/16 16:00 Room Air 11/30/16 14:59 36.8 74 20 121/73 (89) 95 Room Air 11/30/16 12:20 Room Air 11/30/16 11:22 36.8 61 18 123/77 (92) 93 Room Air 11/30/16 09:12 Room Air 11/30/16 07:45 Room Air 11/30/16 06:55 36.7 64 20 143/86 (105) 95 Room Air 11/30/16 04:32 36.4 73 18 143/86 (105) 96 Room Air 11/30/16 04:05 Room Air 11/30/16 00:05 Room Air 11/29/16 23:14 36.8 65 18 152/73 (99) 93 Room Air 11/29/16 20:05 Room Air 11/29/16 19:40 36.7 69 16 123/66 (85) 93 Room Air Lab Results: Results Past 24 Hours Test 11/29/16 20:37 11/30/16 00:00 11/30/16 05:11 11/30/16 07:43 Range/Units Bedside Glucose 103 103 70-99 mg/dl Urine Color YELLOW Urine Appearance CLEAR CLEAR Urine pH 6.0 4.5-7.5 Urine Specific [place] 1.014 1.000-1.030 Urine Protein NEG NEG Urine Glucose (UA) NEG NEG Urine Ketones NEG NEG Urine Occult Blood NEG NEG Urine Nitrite NEG NEG Urine Bilirubin NEG NEG Urine Urobilinogen NEG NEG Urine Leukocyte Esterase NEG NEG White Blood Count 10.10 4.8-10.8 K/uL Red Blood Count 5.09 4.7-6.1 M/uL Hemoglobin 15.9 14.0-18.0 g/dL Hematocrit 46.7 42-52 % Mean Corpuscular Volume 91.7 80-100 fL Mean Corpuscular Hemoglobin 31.2 25-34 pg Mean Corpuscular Hemoglobin Concent 34.0 32-36 g/dl RDW Standard Deviation 49.8 36.4-46.3 fL RDW Coefficient of Variation 14.7 11.5-14.5 % Platelet Count 245 130-400 K/uL Mean Platelet Volume 10.3 7.4-10.4 fL Triglycerides Level 105 0-150 mg/dl Cholesterol Level 94 0-200 mg/dl HDL Cholesterol 38 mg/dl LDL Cholesterol, Calculated 35 mg/dl VLDL Cholesterol, Calculated 21 mg/dl Cholesterol/HDL Ratio 2.5 Test 11/30/16 11:33 11/30/16 16:34 Range/Units Bedside Glucose 97 82 70-99 mg/dl
[2016-11-30] MEDS ORDERED: PLV75 PO (18:14)
[2016-11-30] MEDS ORDERED: LPT40 PO (18:14)
[2016-11-30] MEDS ORDERED: ASPEC81 PO (18:14)
--- NOTE | 2016-11-30 18:20 | Discharge Instructions ---
Discharge Instructions Date of Service Nov 30, 2016. Admission Reason for Admission: TIA Discharge Discharge Diagnosis / Problem: ACUTE LEFT FORNTOPARIETAL CVA Discharge Goals Goal(s): Decrease discomfort, Diagnostic testing, Therapeutic intervention Activity Recommendations Activity Limitations: resume your previous activity Shower/Bathe: no limitations Driving or Machine Use: DO NOT DRIVE TILL EVALUATED BY PHYSICIAN . Instructions / Follow-Up Instructions / Follow-Up HOSPITAL FOLLOW UP WITH DR ASHBY IN A WEEK , OFFICE WILL CALL WITH APPOINTMENT NEUROLOGY FOLLOW UP WITH DR TALLEY IN 6 WEEKS , PLEASE CALL OFFICE FOR APPOINTMENT WILL NEED CARDIO NET /ZIO PATCH -CARDIAC MONITORING TO ASSESS CARDIAC RHYTHM PLEASE HAVE DR ASHBY MAKE REFERRAL TO [facility] CONTINUE TO TAKE ASPIRIN , PLAVIX TAKE IN FULL STOMACH DO NOT TAKE MOTRIN , ADVIL , ALEVE-MAY CAUSE -GASTRITIS AND STOMACH BLEEDING NOTIFY YOUR FAMILY PHYSICIAN FOR ANY EVIDENCE OF DARK STOOL NEED TO REPEAT CAROTID DOPPLER IN 6 MONTHS NO INDICATION FOR STENT OR INTERVENTION FOR RIGHT SIDED CAROTID STENOSIS NEED TO CONTINUE TO HAVE PHYSICAL THERAPY OUT PATIENT DO NOT DRIVE TILL EVALUATED BY PHYSICIAN CONTINUE TO USE WALKER TILL YOUR BALANCE /GAIT IMPROVES TO NORMAL Risk Factors for Stroke: You can reduce your chances of stroke by working with your medical provider to adopt a healthy lifestyle. Some specific ways to lower your chance of stroke are: * If you are a smoker, now is the time to stop smoking cigarettes * If you are diabetic, improve the control of your blood sugars * Avoid excessive amounts of alcohol * Control high blood pressure * Lose weight if you are overweight * Be sure to lead an active lifestyle * Eat a healthy diet low in salt, cholesterol and fat You should know about other risk factors for stroke that you are unable to control. These include: * Age 55 years or older * Male gender * Certain racial groups: , or / * Family History of Stroke, Mini stroke or Heart Attack * Sickle Cell Disease Follow Up: It is important for you to keep your follow up appointments with your medical provider. Current Hospital Diet Patient's current hospital diet: AHA Diet (Heart Healthy), Diabetes Type 2 Diet Discharge Diet Recommended Diet: AHA Diet (Heart Healthy), Diabetes Type 2 Diet Pending Studies Studies pending at discharge: no Laboratory Results Hemoglobin A1c Test 11/30/16 05:11 Range/Units Lipid Panel Test 11/30/16 05:11 Range/Units Triglycerides Level 105 0-150 mg/dl Cholesterol Level 94 0-200 mg/dl HDL Cholesterol 38 mg/dl Cholesterol/HDL Ratio 2.5 LDL Cholesterol, Calculated 35 mg/dl Medical Emergencies . Who to Call and When: Medical Emergencies: Call 911 immediately if you experience any of the following warning signs and symptoms of Stroke: * Sudden numbness or weakness of the face, arm or leg, especially on one side of the body * Sudden confusion, trouble speaking or understanding * Sudden trouble seeing in one or both eyes * Sudden trouble walking, dizziness, loss of balance or coordination * Sudden severe headache with no cause Do not delay calling 911 if you experience any warning signs or symptoms of a stroke. Delay in seeking medical attention may affect what treatments can be given to you. . Non-Emergent Contact Non-Emergency issues call your: Primary Care Provider . . "Provider Documentation" section prepared by Lorin Kay. . Stroke Core Measures Reason no t-PA for Stroke: Treatment not indicated Reason no antithrom by day 2: Treatment provided - N/A Reason no antithrom at D/C: Treatment provided - N/A Reason no statin at D/C: Treatment provided - N/A Reason no anticoag w/a fib: Treatment not indicated VTE Core Measure Inpt VTE Proph given/why not?: Unfractionated heparin SQ
[2016-11-30 18:59] VITALS: BP 115/73; PULSE 75; TEMP 36.6; O2SAT 93
[2016-11-30] MEDS ORDERED: ATORVASTATIN 40 MG TAB PO SCH (21:00)
[2016-11-30] MEDS: DOXEPIN HCL 10 MG CAP PO SCH (21:31)
[2016-11-30 23:13] VITALS: BP 119/68; PULSE 72; TEMP 37; O2SAT 94
[2016-12-01 03:50] VITALS: BP 122/68; PULSE 66; TEMP 37; O2SAT 98
[2016-12-01] MEDS: HEPARIN SOD 5000 UNIT/0.5 ML CARP SQ SCH ×2 (05:44→14:10)
[2016-12-01 06:49] VITALS: BP 127/77; PULSE 69; TEMP 36.6; O2SAT 96
[2016-12-01 07:46] LABS: ESTIMATED AVERAGE GLUCOSE 131 mg/dl; HA1C FLAG Normal (Normal)
[2016-12-01] MEDS: ASPIRIN 81 MG ECTAB PO SCH (08:30)
[2016-12-01] MEDS: TOLTERODINE TARTRATE LA 2 MG CAPCR PO SCH (08:30)
[2016-12-01] MEDS: CEROVITE ADV FORMULA TAB PO SCH (08:30)
[2016-12-01] MEDS: CLOPIDOGREL BISULFATE 75 MG TAB PO SCH (08:30)
[2016-12-01] MEDS: PAROXETINE 20 MG TAB PO SCH (08:30)
[2016-12-01] MEDS: INSULIN ASPART 100 UNITS/ML 3 ML PEN SC SCH ×3 (08:37→17:27)
--- NOTE | 2016-12-01 11:43 | Progress Note ---
Medicine Progress Note Date & Time of Visit: Dec 01, 2016 at 11:12. Subjective Pt was seen and examined Sitting in chair with no distress Pt said that he feels fine He said that his strength is getting better Denies any chest pain, palpitation, dizziness and SOB Objective Last 8 Hrs Date Time Temp Pulse Resp B/P (MAP) Pulse Ox O2 Delivery O2 Flow Rate FiO2 12/01/16 08:20 Room Air 12/01/16 06:49 36.6 69 18 127/77 (94) 96 Room Air 12/01/16 03:50 37.0 66 18 122/68 (86) 98 BiPAP Physical Exam: General- No acute distress Head- atraumatic Eyes- PERRL, EOMI ENT- oropharynx clear Neck- supple, no JVD Lungs- clear to auscultation Heart- regular rhythm; no murmur Abdomen- normal bowel sounds, soft Extremities- no pretibial edema, no calf tenderness Neuro- alert, oriented x 3; PERRL, EOMI; no facial palsy Skin- warm & dry Laboratory Results: Last 24 Hours Test 11/30/16 11:33 11/30/16 16:34 11/30/16 19:55 12/01/16 07:34 Bedside Glucose 97 mg/dl 82 mg/dl 150 mg/dl 110 mg/dl Assessment & Plan ACUTE CVA no prior hx of TIA /or CVA Family hx : Brother had 2-3 TIA episode at age 50's , Mother had CVA at age 54 MRI of head showed small acute infarct within the periventricular left frontotemporal region. symptoms gradually improving no headache ,no visual symptoms, MRA of neck shows 70 % right sided ICA stenosis -Vascular surgery consulted Carotid Doppler showed Findings suggestive of a 50-69% stenosis of the proximal right internal carotid artery. MRA Of brain -no stenosis [place] cont Aspirin /Plavix /statin will need Cardio Net /Zip Patch on discharge to assess for paroxysmal afib ( if not arrhythmia noted during in patient stay ) Continue PT/OT eval recommend out pt PT /assisted device Rolling walker for gait disturbance script given pt should not drive till evaluated by Neurology fasting lipid panel shows well controlled lipid profile with LDL 35 reduce Lipitor dose to 40 mg daily Neurology Consulted Follow up with neurology Dr Guzman in 6 weeks 2Decho showed The interatrial septum is intact with no evidence for an atrial septal defect. Injection of contrast documented no interatrial shunt. The left ventricle is normal in size. Ejection Fraction = 55-60%. The right ventricular systolic function is normal. The left atrial size is normal. Right atrial size is normal. Grossly normal valvular structure and function. TYPE 2 DM : hold metformin /Glipizide -can be resumed on discharged insulin sliding scale HB a1 c in 6.2 (12/15) HYPERLIPIDEMIA : Lipitor increased from 10mg to 40mg during this admission CODE STATUS FULL CODE DVT PROPHYLAXIS : sub q heparin pt is encouraged to ambulate DISPOSITION possible discharge home today will need Physical therapy out pt will need Neurology follow up in 6 weeks will need arrangement for Zio patch /Cardio Net as out pt Consultants: neurology Current Inpatient Medications: Current Inpatient Medications Medications (Trade) Dose Ordered Sig/Jamila Route Start Time Stop Time Status Last Admin Dose Admin Aspirin (Ecotrin Tab) 81 mg QAM PO 11/30/16 09:00 12/30/16 08:59 12/01/16 08:30 81 MG Miscellaneous Information (Pharmacist Discharge Med Rec Consult) 1 ea UD PRN N/A 11/29/16 14:00 12/29/16 13:59 Heparin Sodium (Porcine) (Heparin Sq 5000 Unit/0.5ml) 5,000 unit Q8 SQ 11/29/16 22:00 12/29/16 13:59 12/01/16 05:44 5,000 UNIT Acetaminophen (Tylenol Tab) 650 mg Q4H PRN PO 11/29/16 14:00 12/29/16 13:59 Al Hydrox/Mg Hydrox/Simethicone (Maalox Max Susp) 15 ml Q4H PRN PO 11/29/16 14:00 12/29/16 13:59 Magnesium Hydroxide (Milk Of Magnesia Susp) 30 ml Q12H PRN PO 11/29/16 14:00 12/29/16 13:59 Ondansetron HCl (Zofran Inj) 4 mg Q6H PRN IV 11/29/16 14:00 12/29/16 13:59 Nitroglycerin (Nitrostat Tab) 0.4 mg UD PRN SL 11/29/16 14:00 12/29/16 13:59 Polyethylene (Miralax Powder Packet) 17 gm DAILY PRN PO 11/29/16 14:00 12/29/16 13:59 Miscellaneous (Iv Fluids Completed) 1 ea PRN PRN N/A 11/29/16 14:15 11/29/17 14:14 Gadobutrol (Gadavist) 8 mmol UD PRN IV 11/29/16 16:45 12/03/16 16:44 Insulin Aspart (novoLOG ASPART) SLIDING SCALE If C... ACHS SC 11/29/16 21:00 12/29/16 20:59 12/01/16 08:37 3 UNITS Glucose (Glucose 40% Gel) 15-30 GRAMS 15 GRAMS... UD PRN PO 11/29/16 17:30 12/29/16 17:29 Glucose (Glucose Chew Tab) 4-8 Tablets 4 Tabl... UD PRN PO 11/29/16 17:30 12/29/16 17:29 Dextrose (Dextrose 50% 50ML Syringe) 25-50ML OF 50% DW IV FOR... UD PRN IV 11/29/16 17:30 12/29/16 17:29 Glucagon (Glucagon Inj) 1 mg UD PRN SQ 11/29/16 17:30 12/29/16 17:29 Clopidogrel Bisulfate (plAVix TAB) 75 mg QAM PO 11/30/16 09:00 12/30/16 08:59 12/01/16 08:30 75 MG Doxepin HCl (Sinequan Cap) 10 mg HS PO 11/29/16 21:00 12/29/16 20:59 11/30/16 21:31 10 MG Multivitamins/ Minerals (Multivitamin W/ Minerals Tab) 1 tab DAILY PO 11/30/16 09:00 12/30/16 08:59 12/01/16 08:30 1 TAB Paroxetine HCl (pAXil TAB) 20 mg QAM PO 11/30/16 09:00 12/30/16 08:59 12/01/16 08:30 20 MG Tolterodine Tartrate (Detrol LA Cap) 2 mg DAILY PO 11/30/16 09:00 12/30/16 08:59 12/01/16 08:30 2 MG Atorvastatin Calcium (Lipitor Tab) 40 mg PM PO 11/30/16 21:00 12/29/16 20:59 11/30/16 21:32 40 MG
[2016-12-01 11:59] VITALS: BP 144/82; PULSE 82; TEMP 36.8; O2SAT 95
--- NOTE | 2016-12-01 13:38 | Neurology Progress Notes ---
Neurology Progress Note Date of Service Dec 01, 2016. Yasmin Oliver is a 71 year old right handed man with right sided weakness which he thought was his low back pain. 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 On admission he was still having some clumsy right leg and gait instability No reported headache vertigo visual loss or paresthesias of foot and leg only of hand and these are much improved no visual complaints issues with speech comprehension reading. Plavix was added to aspirin 81 mg which he was previously taking prior to the event. denies CP, SOB, abdominal pain, current weakness, numbness, tingling, N, V, slurred speech, vision changes, swallowing issues Objective Date Time Temp Pulse Resp B/P (MAP) Pulse Ox O2 Delivery O2 Flow Rate FiO2 12/01/16 11:59 36.8 82 18 144/82 (102) 95 Room Air 12/01/16 08:20 Room Air 12/01/16 06:49 36.6 69 18 127/77 (94) 96 Room Air 12/01/16 03:50 37.0 66 18 122/68 (86) 98 BiPAP 12/01/16 00:05 Room Air 11/30/16 23:13 37.0 72 18 119/68 (85) 94 BiPAP 11/30/16 20:00 Room Air 11/30/16 18:59 36.6 75 18 115/73 (87) 93 11/30/16 16:00 Room Air 11/30/16 14:59 36.8 74 20 121/73 (89) 95 Room Air Last 24 Hours Test 11/30/16 16:34 11/30/16 19:55 12/01/16 07:34 12/01/16 11:41 Bedside Glucose 82 mg/dl 150 mg/dl 110 mg/dl 106 mg/dl Imaging: MRI brain with and without- Small acute infarct within the periventricular left frontotemporal region. No mass effect or hemorrhagic conversion. carotid doppler - Findings suggestive of a 50-69% stenosis of the proximal right internal carotid artery. Exam: Physical Exam: Constitutional: appearance nourished, healthy and normal sitting bedside chair Ears, Nose, Mouth and Throat: mucous membranes moist, no injection and skin normal, eyes normal Cardiovascular: normal S-1 and S-2 and regular rate and rhythm Respiratory: clear to auscultation (CTA) and no rales, rhonchi or wheeze Musculoskeletal: no peripheral edema and good distal pulses Skin: no stigmata of neurocutaneous disease noted and normal and intact Eyes: extraocular muscles intact (EOMI) and pupils equal, round and reactive to light (PERRL) NEUROLOGIC EXAMINATION: Mental status: Alert and interactive Oriented to full date and location Oriented to person, place Speech fluent with no evidence of aphasia Cranial Nerves smile eye brow raise symmetric, tongue midline Coordination: finger to nose without bipass Gait/Stance: Posture normal. Gait normal: with steady with steps, base, turning, tandem gait walking with a walker steady no difficulty with standing or turns Motor: Negative for pronator drift of out stretched arms with eyes closed. Strength: biceps, triceps, hand storyboard artist 5/5, hip flex 5/5 bilaterally Current Inpatient Medications Medications (Trade) Dose Ordered Sig/Jamila Route Start Time Stop Time Status Last Admin Dose Admin Aspirin (Ecotrin Tab) 81 mg QAM PO 11/30/16 09:00 12/30/16 08:59 12/01/16 08:30 81 MG Miscellaneous Information (Pharmacist Discharge Med Rec Consult) 1 ea UD PRN N/A 11/29/16 14:00 12/29/16 13:59 Heparin Sodium (Porcine) (Heparin Sq 5000 Unit/0.5ml) 5,000 unit Q8 SQ 11/29/16 22:00 12/29/16 13:59 12/01/16 05:44 5,000 UNIT Acetaminophen (Tylenol Tab) 650 mg Q4H PRN PO 11/29/16 14:00 12/29/16 13:59 Al Hydrox/Mg Hydrox/Simethicone (Maalox Max Susp) 15 ml Q4H PRN PO 11/29/16 14:00 12/29/16 13:59 Magnesium Hydroxide (Milk Of Magnesia Susp) 30 ml Q12H PRN PO 11/29/16 14:00 12/29/16 13:59 Ondansetron HCl (Zofran Inj) 4 mg Q6H PRN IV 11/29/16 14:00 12/29/16 13:59 Nitroglycerin (Nitrostat Tab) 0.4 mg UD PRN SL 11/29/16 14:00 12/29/16 13:59 Polyethylene (Miralax Powder Packet) 17 gm DAILY PRN PO 11/29/16 14:00 12/29/16 13:59 Miscellaneous (Iv Fluids Completed) 1 ea PRN PRN N/A 11/29/16 14:15 11/29/17 14:14 Gadobutrol (Gadavist) 8 mmol UD PRN IV 11/29/16 16:45 12/03/16 16:44 Insulin Aspart (novoLOG ASPART) SLIDING SCALE If C... ACHS SC 11/29/16 21:00 12/29/16 20:59 12/01/16 12:06 2 UNITS Glucose (Glucose 40% Gel) 15-30 GRAMS 15 GRAMS... UD PRN PO 11/29/16 17:30 12/29/16 17:29 Glucose (Glucose Chew Tab) 4-8 Tablets 4 Tabl... UD PRN PO 11/29/16 17:30 12/29/16 17:29 Dextrose (Dextrose 50% 50ML Syringe) 25-50ML OF 50% DW IV FOR... UD PRN IV 11/29/16 17:30 12/29/16 17:29 Glucagon (Glucagon Inj) 1 mg UD PRN SQ 11/29/16 17:30 12/29/16 17:29 Clopidogrel Bisulfate (plAVix TAB) 75 mg QAM PO 11/30/16 09:00 12/30/16 08:59 12/01/16 08:30 75 MG Doxepin HCl (Sinequan Cap) 10 mg HS PO 11/29/16 21:00 12/29/16 20:59 11/30/16 21:31 10 MG Multivitamins/ Minerals (Multivitamin W/ Minerals Tab) 1 tab DAILY PO 11/30/16 09:00 12/30/16 08:59 12/01/16 08:30 1 TAB Paroxetine HCl (pAXil TAB) 20 mg QAM PO 11/30/16 09:00 12/30/16 08:59 12/01/16 08:30 20 MG Tolterodine Tartrate (Detrol LA Cap) 2 mg DAILY PO 11/30/16 09:00 12/30/16 08:59 12/01/16 08:30 2 MG Atorvastatin Calcium (Lipitor Tab) 40 mg PM PO 11/30/16 21:00 12/29/16 20:59 11/30/16 21:32 40 MG Impression 71 year old male s/p small acute infarct left frontotemporal adryan ventricular, presented with right sided leg weakness now resolved Plan 1. once cleared medically and by PT/OT ok to discharge home 2. will need PT/OT as outpatient 3. ZIO patch for evaluation of any arrhythmias 4. follow up in Neurology in 6 weeks, Dr Zenon Guzman or Vilma Russell PAC schedule 5. continue plavix and aspirin x 3 months and then stop aspirin and continue plavix for a lifetime. 6. optimize LDL < 70 and optimize HTN control I have discussed above patient with Dr Vilma Plata, neurology PT seen and examined. MilD RUE weakness and clumsiness with marginal cirmduction R foot without field cut, or aphasia, cw radiographic findings. Agree with antiplt tx as above, Cardionet as outpt SUSHIL stenosis 50-69% will need yearly follow-up with carotid ultrasound with referral to vascular surgery if percent stenosis greater than 70%. CARLINE Plata MD
[2016-12-01 15:52] VITALS: BP 144/77; PULSE 61; TEMP 36.7; O2SAT 95
--- NOTE | 2016-12-01 16:10 | ECHOCARDIOGRAM REPORT ---
*NOTICE TO RECEIVING [employer]Y This information is strictly Confidential and protected under [place] law. [place] law prohibits you from making any further disclosure of this information unless further disclosure is expressly permitted by the written consent of the person to whom it pertains or is authorized by law. A general authorization for the release of medical or other information is not sufficient for this purpose. Hospital accepts no responsibility if the information is made available to any other person, INCLUDING THE PATIENT. Interpretation Summary * Echocardiogram Report * Name: HAIDER VALVERDE Study Date: 12/01/2016 03:13 PM BP: 143/86 mmHg * Patient Location: [facility] HR: 63 * : 1945 (M/d/yyyy) Gender: Male Height: 64 in * Age: 71 yrs Ethnicity: CA Weight: 176 lb * Ordering Physician: Lorin Kay * Referring Physician: UNKNOWN * Performed By: Anna Mitchell RCS * * Reason For Study: TIA * BSA: 1.9 m2 * Grossly normal valvular structure and function. * -- Conclusions -- * The interatrial septum is intact with no evidence for an atrial septal defect. * Injection of contrast documented no interatrial shunt. * The left ventricle is normal in size. * Ejection Fraction = 55-60%. * The right ventricular systolic function is normal. * The left atrial size is normal. * Right atrial size is normal. * Grossly normal valvular structure and function. Procedure Details * The injection was performed through an intravenous line in the right arm. * A saline contrast injection was performed to assess for cardiac shunting. * The attending nurse who injected the saline contrast was Sallie Allen RN. * A total of 15 cc of agitated saline was given. Left Ventricle * The left ventricle is normal in size. * There is normal left ventricular wall thickness. * Ejection Fraction = 55-60%. * The left ventricular wall motion is normal. Right Ventricle * The right ventricle is normal size. * The right ventricular systolic function is normal. Atria * The left atrial size is normal. * Right atrial size is normal. * The interatrial septum is intact with no evidence for an atrial septal defect. * Injection of contrast documented no interatrial shunt. Mitral Valve * The mitral valve is grossly normal. * Significant mitral regurgitation is absent. Tricuspid Valve * The tricuspid valve is not well visualized, but is grossly normal. * Significant tricuspid regurgitation is absent. Aortic Valve * The aortic valve is not well visualized. * No hemodynamically significant valvular aortic stenosis. * There is no significant aortic regurgitation. Pulmonic Valve * The pulmonic valve is not well visualized. Great Vessels * The aortic root and proximal ascending aorta are normal sized. Pericardium/Pleural * There is no pericardial effusion. MMode 2D Measurements and Calculations IVSd 1.1 cm LVIDd 3.9 cm LVIDs 2.9 cm LVPWd 1.2 cm IVS/LVPW 0.88 FS 25.7 % EDV(Teich) 67.9 ml ESV(Teich) 33.1 ml EF(Teich) 51.3 % EDV(cubed) 61.5 ml ESV(cubed) 25.2 ml EF(cubed) 59.1 % LV mass(C)d 153.6 grams LV mass(C)dI 82.9 grams/m\S\2 SV(Teich) 34.8 ml SI(Teich) 18.8 ml/m\S\2 SV(cubed) 36.3 ml SI(cubed) 19.6 ml/m\S\2 EDV(MOD-sp4) 63.6 ml ESV(MOD-sp4) 22.1 ml EF(MOD-sp4) 65.3 % EDV(MOD-sp2) 49.5 ml ESV(MOD-sp2) 12.0 ml EF(MOD-sp2) 75.8 % SV(MOD-sp4) 41.6 ml SI(MOD-sp4) 22.4 ml/m\S\2 SV(MOD-sp2) 37.5 ml SI(MOD-sp2) 20.3 ml/m\S\2 Doppler Measurements and Calculations MV E max elie 66.9 cm/sec MV A max elie 75.0 cm/sec MV E/A 0.89 MV dec time 0.13 sec Ao V2 max 105.9 cm/sec Ao max PG 4.5 mmHg Ao max PG (full) 2.1 mmHg LV V1 max PG 2.4 mmHg LV V1 max 76.9 cm/sec
[2016-12-01 18:26] VITALS: BP 144/77; PULSE 61; TEMP 36.7; O2SAT 95
--- NOTE | 2016-12-01 19:14 | Pharmacy Progress Note ---
Pharmacist Stroke Counseling Date of Service Dec 01, 2016. Scope Pharmacy has been consulted to provide medication discharge counseling for this patient admitted with ischemic stroke/hemorrhagic stroke/ transient ischemic attack as per the Pharmacist Discharge Counseling for Stroke Patients Protocol. Medications on Discharge New Medications: Aspirin (Aspirin EC Low Dose) 81 Mg Ectab 81 MG PO QAM for 30 Days, #30 TAB Atorvastatin (Atorvastatin Calcium) 40 Mg Tab 40 MG PO PM for 30 Days, #30 TAB 2 Refills Clopidogrel Bisulfate (Clopidogrel) 75 Mg Tab 75 MG PO QAM for 30 Days, #30 TAB 2 Refills Continued Medications: Doxepin (Sinequan) 10 Mg Cap 10 MG PO HS Metformin Hcl (Glucophage) 1,000 Mg Tab 1000 MG PO BIDM Multiple Vitamins W/ Minerals (Centrum) 1 Tab Tab 1 TAB PO DAILY Paroxetine (Paxil) 20 Mg Tab 20 MG PO QAM Repaglinide (Prandin) 2 Mg Tab 2 MG PO AC Sitagliptin Phosphate (Januvia) 100 Mg Tab 100 MG PO DAILY Testosterone (Testosterone) 1 % Gel 40 MG TOP DAILY 2% GEL *APPLY TO THIGH Tolterodine Tartrate (Detrol La) 2 Mg Cap 2 MG PO DAILY Discontinued Medications: Aspirin (Aspirin Ec) 81 Mg Tab 81 MG PO Q2D Atorvastatin (Lipitor) 10 Mg Tab 10 MG PO DAILY Ibuprofen (Motrin) 600 Mg Tab 600 MG PO TIDM Action The above medications, specifically ones for stroke treatment/prophylaxis, have been reviewed in detail with the patient and/or patient accounting representative(s) prior to discharge. This includes indication, common adverse reactions, drug interactions, and medication administration. Medication counseling has been employed using the teach-back method to ensure understanding. Mr Castaneda and spouse discussed history of easy bruising on aspirin and rationale for combined aspirin and clopidogrel for the short-term were discussed. Mr Castaneda will follow-up with Dr Cordova in one week. Mr. Castaneda also iterated that he has not had high cholesterol in the past and his Cafe Site Attendant initiated the 10mg strength of atorvastatin as a preventative. Discussed the rational of high dose statins used to prevent clot formation. Mr Castaneda will take his new medications following a QAM routine by preference. Outcome The patient and/or patient accounting representative(s) have demonstrated understanding of the medications. Please note, they are aware that the pharmacist will call them within 72 hours post-discharge to confirm that the appropriate medications are being taken and answer any further medication related questions the patient might have at that time. Contact information Individual to be contacted: Benito Castaneda Relationship to patient: Spouse was present and engaged in counselling effort Phone number: Best time to call: Patient now restricted in driving thus will be home anytime Additional comments: okay to leave a message Thank you for allowing pharmacy to be involved in the care of this patient. Please call [phone] or [phone] with any additional questions
--- NOTE | 2016-12-02 16:37 | Discharge Summary ---
Discharge Summary Date of Service Dec 02, 2016. Discharge Summary Admission Date: Nov 30, 2016 at 17:08 Discharge Date: Dec 01, 2016 Discharge Disposition: Home with services Principal Diagnosis: ACUTE CVA Secondary Diagnoses/Problems: DYSLIPIDEMIA DM TYPE 2 Procedures: MRI OF THE BRAIN WITHOUT AND WITH IV CONTRAST CLINICAL HISTORY: Stroke. Right arm and leg weakness. COMPARISON STUDY: Head CT performed earlier today. TECHNIQUE: Utilizing a 1.5 Cookie magnet and dedicated coil, multiplanar, multiecho imaging of the brain was performed pre and postcontrast administration. IV administration of 8 mL of Gadavist contrast was uneventful. FINDINGS: There is a 1.1 cm focus of restricted diffusion within the periventricular left frontotemporal region shown on axial image 15 of 46. No additional areas of restricted diffusion are present. No acute intracranial hemorrhage, midline shift or mass effect is present. Ventricular dilatation is due to atrophy. Basilar cisterns are patent. There is no intracranial mass or pathologic enhancement. Numerous scattered white matter T2 hyperintense foci suggest small vessel disease. Calvarial signal is maintained. Flow-voids for the major intracranial vessels are present. IMPRESSION: Small acute infarct within the periventricular left frontotemporal region. No mass effect or hemorrhagic conversion. Electronically signed by: Ike Peace M.D. 11/29/2016 4:39 PM Dictated Date/Time: 11/29/2016 4:35 PM CAROTID ARTERY ULTRASOUND CLINICAL HISTORY: Stroke COMPARISON STUDY: MRA of the neck performed earlier today. TECHNIQUE: Real-time, grayscale, and color Doppler sonography of the carotid and vertebral arteries was performed. Images were viewed in the transverse and longitudinal planes. FINDINGS: There is mild to moderate atherosclerotic plaque. Velocity measurements are listed below. COMMON CAROTID PEAK SYSTOLIC VELOCITY (CM/S): RIGHT 78 LEFT 91 ICA PEAK SYSTOLIC VELOCITY (CM/S): RIGHT 157 LEFT 94 The systolic ratio between the right internal to common carotid artery is mildly elevated at 2. Antegrade flow is seen in the vertebral arteries. The external carotid arteries are patent. Blood pressure in the right arm measured 130/81. Blood pressure in the left arm measured 128/70. IMPRESSION: Findings suggestive of a 50-69% stenosis of the proximal right internal carotid artery. Electronically signed by: Ike Peace M.D. 11/29/2016 6:53 PM Dictated Date/Time: 11/29/2016 6:51 PM MRA OF THE INTRACRANIAL CIRCULATION WITHOUT CONTRAST CLINICAL HISTORY: Stroke - Attention to [place]. Right arm and leg weakness. COMPARISON STUDY: Head CT performed earlier today. TECHNIQUE: Utilizing a 1.5 Cookie magnet and 3-D [id number] technique, unenhanced MRA of the intracranial circulation was obtained. FINDINGS: This exam is mildly compromised by motion artifact. No abrupt vessel cut off is identified on this examination. No aneurysm is identified although sensitivity is for detection of small aneurysms is diminished on this examination. There is mild intracranial vascular irregularity due to atherosclerosis. The right A1 segment is hypoplastic. IMPRESSION: 1. No abrupt vessel cut off or intracranial aneurysm identified. 2. Unremarkable MRA for age. 3. Study mildly compromised by motion artifact. Electronically signed by: Ike Peace M.D. 11/29/2016 5:40 PM Dictated Date/Time: 11/29/2016 4:30 PM MRA OF THE NECK WITH AND WITHOUT CONTRAST CLINICAL HISTORY: Stroke. COMPARISON STUDY: None. TECHNIQUE: Unenhanced and contrast-enhanced MRA of the neck was performed. Injection of 8 mL of Gadavist IV was uneventful. NASCET criteria were utilized to estimate the degree of carotid stenosis. FINDINGS: There is no significant stenosis within the bilateral common carotid arteries. There is mild irregularity of the proximal left internal carotid artery without significant stenosis of this vessel. There is focal stenosis of the proximal right internal carotid artery. The vessel measures approximately 1.8 mm in caliber at this level. Distally, this vessel measures approximately 4.8 mm. The findings suggest approximately 70% stenosis. The left vertebral artery is dominant and patent. No significant stenosis is identified within the bilateral vertebral arteries with exception of possible mild stenosis at origin of the left vertebral artery. The distal right vertebral artery is diminutive. IMPRESSION: 1. Short segment stenosis of the proximal right internal carotid artery with approximately 70% narrowing. 2. No significant stenosis within the left internal carotid artery or the bilateral common carotid arteries. Electronically signed by: Ike Peace M.D. 11/29/2016 5:19 PM Dictated Date/Time: 11/29/2016 5:11 PM CHEST ONE VIEW PORTABLE CLINICAL HISTORY: Chest pain. COMPARISON STUDY: No previous studies for comparison. FINDINGS: Lung volumes are normal. There is no pneumothorax or pleural effusion. There is an azygos fissure. Linear left lung opacities are suggestive of atelectasis. There is no evidence of pulmonary edema. There is no consolidation to suggest pneumonia. Cardiac size is at upper limits of normal. IMPRESSION: No acute cardiopulmonary findings. Electronically signed by: Ike Peace M.D. 11/29/2016 12:46 PM Dictated Date/Time: 11/29/2016 12:[address] OF THE HEAD WITHOUT CONTRAST CLINICAL HISTORY: Right arm and leg weakness. COMPARISON STUDY: No previous studies for comparison. TECHNIQUE: Helical axial images of the head were obtained without IV contrast. Automated exposure control was utilized for the study. FINDINGS: No acute intracranial hemorrhage, midline shift or mass effect is present. Ventricular system is normal for age. Basilar cisterns are patent. There are no extra axial collections. There is extensive intracranial vascular calcification. A few white matter hypodensities suggest small vessel disease or old lacunar infarcts. There are no findings to suggest acute dural sinus thrombosis or acute territorial infarct. There are no significant calvarial abnormalities. Visualized portions of the sinuses and mastoid air cells are clear. IMPRESSION: No acute intracranial findings. Electronically signed by: Ike Peace M.D. 11/29/2016 1:06 PM Consultations: neurology Medication Reconciliation New Medications: Aspirin (Aspirin EC Low Dose) 81 Mg Ectab 81 MG PO QAM for 30 Days, #30 TAB Atorvastatin (Atorvastatin Calcium) 40 Mg Tab 40 MG PO PM for 30 Days, #30 TAB 2 Refills Clopidogrel Bisulfate (Clopidogrel) 75 Mg Tab 75 MG PO QAM for 30 Days, #30 TAB 2 Refills Continued Medications: Doxepin (Sinequan) 10 Mg Cap 10 MG PO HS Metformin Hcl (Glucophage) 1,000 Mg Tab 1000 MG PO BIDM Multiple Vitamins W/ Minerals (Centrum) 1 Tab Tab 1 TAB PO DAILY Paroxetine (Paxil) 20 Mg Tab 20 MG PO QAM Repaglinide (Prandin) 2 Mg Tab 2 MG PO AC Sitagliptin Phosphate (Januvia) 100 Mg Tab 100 MG PO DAILY Testosterone (Testosterone) 1 % Gel 40 MG TOP DAILY 2% GEL *APPLY TO THIGH Tolterodine Tartrate (Detrol La) 2 Mg Cap 2 MG PO DAILY Discontinued Medications: Aspirin (Aspirin Ec) 81 Mg Tab 81 MG PO Q2D Atorvastatin (Lipitor) 10 Mg Tab 10 MG PO DAILY Ibuprofen (Motrin) 600 Mg Tab 600 MG PO TIDM Admission Information HPI (per Admitting provider): This is a 71 yo Male with medical hx of Type 2 DM , hyperlipidemia presented to ER with rt lower ext weakness . 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 , after coming home in evening - started to experience low back pain , mostly on rt side later the evening -felt his rt leg was numb and weak , thought it could be due to his keeping legs crossed while watching TV woke this AM -rt leg weakness continued to persists , had to drag his rt leg , started to have weakness on rt hand mostly along the medial edge /litter finger and ulnar side of rt arm no facial droop noted no headache , no visual symptom pt never had any prior hx of CVA or TIA went to weekend Clinic in [facility] -pt was sent to ED for evaluation of TIA / Stroke like symptom in ED pt continued have rt sided leg weakness , although feels that his symptoms is improving somewhat pt was given 4 x 81 mg Asp[address]in in ED CT head with out contrast was no acute change MRI of brain shows acute /sub acute small infract on left frontoparietal region MRA of neck : 70 % narrowing of Rt int carotid artery Physical Exam (per Admitting): General Appearance: no apparent distress Head: normocephalic, atraumatic Eyes: PERRL, EOMI, sclerae normal Neck: no JVD Respiratory/Chest: chest non-tender, lungs clear, normal breath sounds, no respiratory distress Cardiovascular: regular rate, rhythm, no JVD, no murmur Abdomen/GI: normal bowel sounds, non tender, soft Extremities/Musculoskelatal: no calf tenderness, normal capillary refill, no pedal edema, normal range of motion Neurologic/Psych: alert, normal mood/affect, + abnormal gait (rt sided weakness ), + motor weakness (rt lower ext weakness ) Skin: normal color, warm/dry, no rash Lymphatic: no adenopathy Hospital Course ACUTE CVA no prior hx of TIA /or CVA Family hx : Brother had 2-3 TIA episode at age 50's , Mother had CVA at age 54 MRI of head showed small acute infarct within the periventricular left frontotemporal region. symptoms gradually improving no headache ,no visual symptoms, MRA of neck shows 70 % right sided ICA stenosis -Vascular surgery consulted Carotid Doppler showed Findings suggestive of a 50-69% stenosis of the proximal right internal carotid artery. MRA Of brain -no stenosis [place] cont Aspirin /Plavix /statin will need Cardio Net /Zip Patch on discharge to assess for paroxysmal afib ( if not arrhythmia noted during in patient stay ) Continue PT/OT eval recommend out pt PT /assisted device Rolling walker for gait disturbance script given pt should not drive till evaluated by Neurology fasting lipid panel shows well controlled lipid profile with LDL 35 reduce Lipitor dose to 40 mg daily Neurology Consulted Follow up with neurology Dr Talley in 6 weeks 2Decho showed The interatrial septum is intact with no evidence for an atrial septal defect. Injection of contrast documented no interatrial shunt. The left ventricle is normal in size. Ejection Fraction = 55-60%. The right ventricular systolic function is normal. The left atrial size is normal. Right atrial size is normal. Grossly normal valvular structure and function. TYPE 2 DM : hold metformin /Glipizide -can be resumed on discharged insulin sliding scale HB a1 c in 6.2 (12/15) HYPERLIPIDEMIA : Lipitor increased from 10mg to 40mg during this admission CODE STATUS FULL CODE DVT PROPHYLAXIS : sub q heparin pt is encouraged to ambulate DISPOSITION possible discharge home today will need Physical therapy out pt will need Neurology follow up in 6 weeks will need arrangement for Zio patch /Cardio Net as out pt Total time spent on discharge = 35 MINUTES This includes examination of the patient, discharge planning, medication reconciliation, and communication with other providers. Discharge Instructions Discharge Instructions Date of Service Nov 30, 2016. Admission Reason for Admission: TIA Discharge Discharge Diagnosis / Problem: ACUTE LEFT FORNTOPARIETAL CVA Discharge Goals Goal(s): Decrease discomfort, Diagnostic testing, Therapeutic intervention Activity Recommendations Activity Limitations: resume your previous activity Shower/Bathe: no limitations Driving or Machine Use: DO NOT DRIVE TILL EVALUATED BY PHYSICIAN . Instructions / Follow-Up Instructions / Follow-Up HOSPITAL FOLLOW UP WITH DR CORDOVA IN A WEEK , OFFICE WILL CALL WITH APPOINTMENT NEUROLOGY FOLLOW UP WITH DR TALLEY IN 6 WEEKS , PLEASE CALL OFFICE FOR APPOINTMENT WILL NEED CARDIO NET /ZIO PATCH -CARDIAC MONITORING TO ASSESS CARDIAC RHYTHM PLEASE HAVE DR CORDOVA MAKE REFERRAL TO [facility] CONTINUE TO TAKE ASPIRIN , PLAVIX TAKE IN FULL STOMACH DO NOT TAKE MOTRIN , ADVIL , ALEVE-MAY CAUSE -GASTRITIS AND STOMACH BLEEDING NOTIFY YOUR FAMILY PHYSICIAN FOR ANY EVIDENCE OF DARK STOOL NEED TO REPEAT CAROTID DOPPLER IN 6 MONTHS NO INDICATION FOR STENT OR INTERVENTION FOR RIGHT SIDED CAROTID STENOSIS NEED TO CONTINUE TO HAVE PHYSICAL THERAPY OUT PATIENT DO NOT DRIVE TILL EVALUATED BY PHYSICIAN CONTINUE TO USE WALKER TILL YOUR BALANCE /GAIT IMPROVES TO NORMAL Risk Factors for Stroke: You can reduce your chances of stroke by working with your medical provider to adopt a healthy lifestyle. Some specific ways to lower your chance of stroke are: * If you are a smoker, now is the time to stop smoking cigarettes * If you are diabetic, improve the control of your blood sugars * Avoid excessive amounts of alcohol * Control high blood pressure * Lose weight if you are overweight * Be sure to lead an active lifestyle * Eat a healthy diet low in salt, cholesterol and fat You should know about other risk factors for stroke that you are unable to control. These include: * Age 55 years or older * Male gender * Certain racial groups: , or / * Family History of Stroke, Mini stroke or Heart Attack * Sickle Cell Disease Follow Up: It is important for you to keep your follow up appointments with your medical provider. Current Hospital Diet Patient's current hospital diet: AHA Diet (Heart Healthy), Diabetes Type 2 Diet Discharge Diet Recommended Diet: AHA Diet (Heart Healthy), Diabetes Type 2 Diet Pending Studies Studies pending at discharge: no Laboratory Results Hemoglobin A1c Test 11/30/16 05:11 Range/Units Lipid Panel Test 11/30/16 05:11 Range/Units Triglycerides Level 105 0-150 mg/dl Cholesterol Level 94 0-200 mg/dl HDL Cholesterol 38 mg/dl Cholesterol/HDL Ratio 2.5 LDL Cholesterol, Calculated 35 mg/dl Medical Emergencies . Who to Call and When: Medical Emergencies: Call 911 immediately if you experience any of the following warning signs and symptoms of Stroke: * Sudden numbness or weakness of the face, arm or leg, especially on one side of the body * Sudden confusion, trouble speaking or understanding * Sudden trouble seeing in one or both eyes * Sudden trouble walking, dizziness, loss of balance or coordination * Sudden severe headache with no cause Do not delay calling 911 if you experience any warning signs or symptoms of a stroke. Delay in seeking medical attention may affect what treatments can be given to you. . Non-Emergent Contact Non-Emergency issues call your: Primary Care Provider . . "Provider Documentation" section prepared by Lorin Kay. . Stroke Core Measures Reason no t-PA for Stroke: Treatment not indicated Reason no antithrom by day 2: Treatment provided - N/A Reason no antithrom at D/C: Treatment provided - N/A Reason no statin at D/C: Treatment provided - N/A Reason no anticoag w/a fib: Treatment not indicated VTE Core Measure Inpt VTE Proph given/why not?: Unfractionated heparin SQ Addendum: Jorge Mcgovern M.D. on 12/01/16 @ 14:44 Discharge Inst - Addendum Addendum Provider: Addendum Notes were documented by provider Jorge Mcgovern. Follow up appointment with your PCP Dr. Rainer Cordova on 12/04/16@9:25am Follow up with neurology Dr Talley on 01/27/17@1:35pm Continue Physical therapy eval (script given to patient)ZIO patch for evaluation of any arrhythmias Neurology will arrange for ZIO patch for evaluation of any arrhythmias (Jorge Mcgovern M.D.) Additional Copies To Rainer Cordova D.O.
--- NOTE | 2016-12-04 14:37 | Pharmacy Progress Note ---
Pharmacist Post D/C Phone Note Date of phone call: Dec 04, 2016. Individual with whom pharmacist spoke to: Patient's The following questions were reviewed during the phone call with responses listed below each: Can you tell me the medications that you are currently taking as well as when and how you take each medication? - Patient's reported that patient was taking ASA 81 mg daily, Plavix 75 mg daily and Lipitor 40 mg daily in the morning. She said they had seen Dr. Cordova this morning and his diabetes meds were changed since he had an episode of hypoglycemia with BSG of 38. Januvia d/c'd and Prandin 1/2 tab BID. CURRENT MED LIST: Medications Dose Route/Sig Max Daily Dose Days Date Category Dose Instructions Aspirin EC Low Dose (Aspirin) 81 Mg Ectab 81 Mg PO QAM 30 11/30/16 Rx Atorvastatin Calcium (Atorvastatin) 40 Mg Tab 40 Mg PO PM 30 11/30/16 Rx Clopidogrel (Clopidogrel Bisulfate) 75 Mg Tab 75 Mg PO QAM 30 11/30/16 Rx Centrum (Multiple Vitamins W/ Minerals) 1 Tab Tab 1 Tab PO DAILY 11/29/16 Reported Testosterone 1 % Gel 40 Mg TOP DAILY 11/29/16 Reported 2% GEL *APPLY TO THIGH Paxil (Paroxetine HCl) 20 Mg Tab 20 Mg PO QAM 11/29/16 Reported Glucophage (Metformin Hcl) 1,000 Mg Tab 1,000 Mg PO BIDM 11/29/16 Reported Sinequan (Doxepin HCl) 10 Mg Cap 10 Mg PO HS 11/29/16 Reported Prandin (Repaglinide) 2 Mg Tab 1 Mg PO BIDM 11/29/16 Reported Detrol La (Tolterodine Tartrate) 2 Mg Cap 2 Mg PO DAILY 11/29/16 Reported When have you missed any doses of your medications? - No missed doses. What side effects are you having from your medications? - No side effects What questions do you have about your medications? - None What problems are you having obtaining your medications? - None When is your next appointment with your primary care doctor? - Saw Dr. Cordova this am. Additional comments: - Patient's was knowledgeable about pt's meds. She did not have any problems/concerns at this time. Asked her to call us if anything comes up in the future and left her the pharmacy phone number. As per the Pharmacist Discharge Counseling for Stroke Patients Protocol, this phone call has been completed within 72 hours of discharge. Thank you for allowing us to be involved in the care of this patient.
--- NOTE | 2016-12-17 07:03 | Medical Consult ---
Consultation Note Date of Service Dec 17, 2016. Consultation Note On vacation. No one notified answering service for [place] coverage
== END 2016-12-01 19:05 | disposition home health service (06) | DRG 65 ==
LOC: C.EDB 11:05 → C.MED 13:54 → ENRESERV 14:42 → OBSVTOIN 11-30 17:08
PROVIDERS: ADMIT Hospitalist; ATTEND Internal Medicine
DX: I63.9 Cerebral infarction, unspecified (principal); G81.91 Hemiplegia, unspecified affecting right dominant side; I65.23 Occlusion and stenosis of bilateral carotid arteries; E11.9 Type 2 diabetes mellitus without complications; E78.5 Hyperlipidemia, unspecified; G47.30 Sleep apnea, unspecified; F17.210 Nicotine dependence, cigarettes, uncomplicated; Z79.82 Long term (current) use of aspirin; Z79.899 Other long term (current) drug therapy; Z82.3 Family history of stroke; I48.0 Paroxysmal atrial fibrillation

== ENCOUNTER 2019-11-06 11:52 | Inpatient (IN) ==
[2019-11-06] MEDS ORDERED: SODIUM CHLORIDE 0.9% 250 ML IV ONE (12:11)
--- NOTE | 2019-11-06 12:17 | Emergency Department Note ---
History of Present Illness General Chief complaint: Syncope (Near Syncope) Stated complaint: syncope Time Seen by Provider: 11/06/19 12:03 Source: patient Mode of arrival: EMS Limitations: no limitations History of Present Illness Provider complaint: near syncope Onset (ago): hour(s) Radiation: non-radiation Severity: mild Relieved By: + none Treatments prior to arrival: none This is a 74-year-old male from home who presents after an episode of lightheadedness and near syncope while walking today. Patient states upon getting up this morning he felt in his usual state of health, ate normally, and took his usual morning medications. Patient states that is his usual habit to go for approximately 1 mile walk every day. Patient states he does use a cane while walking. Patient states on his way home he suddenly began to feel lightheaded, and fearing he would fall he slowly with help of his cane lowered himself to the ground. Patient denies any head trauma or loss of consciousness. Patient states upon lying down he became slightly nauseated, no vomiting. Antoine brambila states some neighbors nearby came to check on him and suggested he come to the emergency room for additional evaluation. Patient states he does see cardiology locally and has been wearing a heart monitor to evaluate his heart rate. Patient denies any accompanying chest pain, shortness of breath. No recent fevers or chills, cough or cold symptoms. No recent known exposure to a coronavirus positive individual. No recent change in any of his medications. Pt seen during a time of high acuity and national emergency pandemic while wearing PPE. Home Medications Home Medications Medication Instructions Recorded Confirmed Type atorvastatin 40 mg PO DAILY 11/06/19 11/06/19 History clopidogrel 75 mg PO DAILY 11/06/19 11/06/19 History doxepin 10 mg PO DAILY 11/06/19 11/06/19 History metformin 1,000 mg PO BID 11/06/19 11/06/19 History dapcorwarbzr-eazl-pwvsb acid 1 tab PO HS 11/06/19 11/06/19 History [Centrum] paroxetine HCl 20 mg PO DAILY 11/06/19 11/06/19 History sitagliptin [Januvia] 100 mg PO DAILY 11/06/19 11/06/19 History testosterone [Fortesta] 2 pump TOPICAL DAILY 11/06/19 11/06/19 History tolterodine [Detrol LA] 4 mg PO DAILY 11/06/19 11/06/19 History Allergies Allergy/AdvReac Type Severity Reaction Status Date / Time No Known Allergies Allergy Unverified 11/06/19 13:45 Past Med/Surg History Medical History Diabetes Hyperlipidemia Social History Preferred Language: Mauritanian Communication Ability: Effective Beliefs That Will Affect Care: None Current Living Situation: Spouse Other Information That Helps Us Care for You: No Feels Safe at Home: Yes Safety Concerns: Feels Safe At This Time Smoking Status: Former smoker Hx Alcohol Use: No Hx Substance Use: No Review of Systems See HPI for pertinent positives & negatives. and A total of 10 systems reviewed and were otherwise negative Physical Exam Vital Signs Vital Signs - 24 hr 11/06/19 11:52 11/06/19 11:57 11/06/19 12:00 Temperature 36.6 C Temperature Source Oral Pulse Rate 86 86 87 Pulse Rate from SpO2 Sensor 86 88 Pulse Rhythm Regular Respiratory Rate 19 16 24 Respiratory Effort / Characteristics Non-Labored Spontaneous Respiratory Depth Normal Respiratory Pattern Regular Blood Pressure 149/73 H 149/73 H 138/65 Blood Pressure Mean 98 90 96 Pulse Oximetry 93 91 Oxygen Delivery Method Room Air Sepsis Recent Fever Within 48 Hours No Sepsis New/Unexplained Change in Mental Status No Sepsis Action Taken by Nursing No Action Required 11/06/19 12:31 11/06/19 13:01 11/06/19 13:30 Temperature Temperature Source Pulse Rate 92 H 99 H 96 H Pulse Rate from SpO2 Sensor 90 99 H 95 H Pulse Rhythm Respiratory Rate 18 21 21 Respiratory Effort / Characteristics Respiratory Depth Respiratory Pattern Blood Pressure 155/74 H 149/77 H 140/83 Blood Pressure Mean 101 93 106 Pulse Oximetry 99 97 95 Oxygen Delivery Method Room Air Room Air Room Air Sepsis Recent Fever Within 48 Hours Sepsis New/Unexplained Change in Mental Status Sepsis Action Taken by Nursing 11/06/19 14:00 Temperature Temperature Source Pulse Rate 93 H Pulse Rate from SpO2 Sensor 93 H Pulse Rhythm Respiratory Rate 23 Respiratory Effort / Characteristics Respiratory Depth Respiratory Pattern Blood Pressure 150/75 H Blood Pressure Mean 90 Pulse Oximetry 93 Oxygen Delivery Method Room Air Sepsis Recent Fever Within 48 Hours Sepsis New/Unexplained Change in Mental Status Sepsis Action Taken by Nursing GENERAL: alert, well appearing, well nourished, no distress, non-toxic EYE EXAM: normal conjunctiva, PERRL and EOM's grossly intact OROPHARYNX: no exudate, no erythema, lips, buccal mucosa, and tongue normal and mucous membranes are moist NECK: supple, no nuchal rigidity, no adenopathy, non-tender LUNGS: Clear to auscultation. Normal chest wall mechanics, no w/r/r HEART: no murmurs, S1 normal and S2 normal ABDOMEN: abdomen soft, non-tender, normo-active bowel sounds, no masses, no rebound or guarding. BACK: Back is symmetrical on inspection and there is no deformity, no midline tenderness, no CVA tenderness. SKIN: no rashes and no bruising UPPER EXTREMITIES: upper extremities are grossly normal. FROM, nml pulses b/l. LOWER EXTREMITIES: No pitting edema. FROM, nml pulses b/l. NEURO EXAM: Normal sensorium, cranial nerves II-XII grossly intact, normal speech, no gross weakness of arms, no gross weakness of legs. Gross sensation intact. Course Course 1320: Pt updated on results. No prior Gb or pancreas problems to his knowledge. 1645: Reviewed [employer] reports and discussed with [employer] rep check, patient with 2 significant episodes of bradycardia likely contributing factor to his symptoms. 1505: Discussed with Dr. Gurrola. Requested we consult cardiology in addition. 1520: Discussed with Dr. Marcelino. Administered Medications Acetaminophen (Tylenol) 650 mg PO Q4H PRN PRN Reason: Pain or Fever Stop: 12/06/19 17:08 Last Admin: 11/08/19 00:20 Dose: 650 mg Documented by: [id number] Admin: 11/07/19 19:14 Dose: 650 mg Documented by: [id number] Admin: 11/07/19 03:02 Dose: 650 mg Documented by: [id number] Admin: 11/06/19 23:08 Dose: 650 mg Documented by: [id number] Admin: 11/06/19 19:01 Dose: 650 mg Documented by: [id number] Atorvastatin Calcium (Lipitor) 40 mg PO DAILY [facility] Stop: 12/07/19 08:59 Last Admin: 11/07/19 08:15 Dose: 40 mg Documented by: [id number] Clopidogrel Bisulfate (Plavix) 75 mg PO DAILY [facility] Stop: 12/07/19 08:59 Last Admin: 11/07/19 08:15 Dose: 75 mg Documented by: [id number] Doxepin HCl (Doxepin Hcl) 10 mg PO DAILY [facility] Stop: 12/07/19 08:59 Last Admin: 11/07/19 08:16 Dose: 10 mg Documented by: [id number] Doxycycline Hyclate (Vibramycin) 100 mg PO Q12H [facility] Stop: 11/13/19 17:59 Last Admin: 11/07/19 18:40 Dose: 100 mg Documented by: [id number] Admin: 11/07/19 05:06 Dose: 100 mg Documented by: [id number] Admin: 11/06/19 18:59 Dose: 100 mg Documented by: [id number] Sodium Chloride (Nss 1000ml) 1,000 mls @ 60 mls/hr IV .[id number] [facility] Stop: 12/06/19 17:08 Last Admin: 11/08/19 01:08 Dose: Not Given Documented by: [id number] Infusion: 11/07/19 23:50 Dose: 0 mls/hr Documented by: [id number] Admin: 11/07/19 11:15 Dose: 60 mls/hr Documented by: [id number] Infusion: 11/07/19 11:15 Dose: 0 mls/hr Documented by: [id number] Infusion: 11/06/19 18:05 Dose: 0 mls/hr Documented by: [id number] Admin: 11/06/19 17:58 Dose: 60 mls/hr Documented by: [id number] Insulin Aspart (Novolog Flexpen) 0 units SC ACHS [facility] Stop: 12/06/19 20:59 Last Admin: 11/07/19 20:50 Dose: Not Given Documented by: [id number] Cosigned by: [id number] Admin: 11/07/19 17:37 Dose: Not Given Documented by: [id number] Cosigned by: [id number] Admin: 11/07/19 11:43 Dose: Not Given Documented by: [id number] Cosigned by: [id number] Admin: 11/07/19 08:15 Dose: Not Given Documented by: [id number] Cosigned by: [id number] Admin: 11/06/19 21:08 Dose: Not Given Documented by: [id number] Ioversol (Optiray 320 100ml) 92 ml IV ONCE PRN PRN Reason: Interaction Checking Stop: 11/10/19 13:47 Last Admin: 11/06/19 13:48 Dose: 92 ml Documented by: [id number] Miscellaneous (Order Awaiting Action) 1 ea N/A QS [facility] Stop: 12/07/19 00:00 Last Admin: 11/07/19 23:50 Dose: Not Given Documented by: [id number] Admin: 11/07/19 15:57 Dose: Not Given Documented by: [id number] Admin: 11/07/19 08:15 Dose: Not Given Documented by: [id number] Admin: 11/06/19 22:41 Dose: Not Given Documented by: [id number] Multivitamins/Minerals (Multivitamin W/ Minerals Tab) 1 tab PO HS [facility] Stop: 12/06/19 20:59 Last Admin: 11/07/19 20:48 Dose: 1 tab Documented by: [id number] Admin: 11/06/19 21:05 Dose: 1 tab Documented by: [id number] Paroxetine HCl (Paxil) 20 mg PO DAILY [facility] Stop: 12/07/19 08:59 Last Admin: 11/07/19 08:16 Dose: 20 mg Documented by: [id number] Tolterodine Tartrate (Detrol La) 4 mg PO DAILY [facility] Stop: 12/07/19 08:59 Last Admin: 11/07/19 08:16 Dose: 4 mg Documented by: [id number] Tramadol HCl (Ultram) 25 - 50 mg PO Q4H PRN PRN Reason: Pain Stop: 12/08/19 00:47 Last Admin: 11/08/19 00:55 Dose: 50 mg Documented by: [id number] Discontinued Medications Acetaminophen (Tylenol) 650 mg PO NOW STA Stop: 11/06/19 12:49 Last Admin: 11/06/19 13:00 Dose: 650 mg Documented by: [id number] Bacitracin (Bacitracin) Confirm Administered Dose 50,000 units .ROUTE .STK-MED ONE Stop: 11/07/19 13:54 Last Admin: 11/07/19 15:55 Dose: Not Given Documented by: [id number] Bupivacaine HCl (Sensorcaine 0.25% Inj) Confirm Administered Dose 30 ml .ROUTE .STK-MED ONE Stop: 11/07/19 13:53 Last Admin: 11/07/19 15:54 Dose: Not Given Documented by: [id number] Cefazolin Sodium (Ancef) Confirm Administered Dose 2,000 mg .ROUTE .STK-MED ONE Stop: 11/07/19 14:13 Last Admin: 11/07/19 15:55 Dose: Not Given Documented by: [id number] Enalaprilat (Vasotec) Confirm Administered Dose 2.5 mg .ROUTE .STK-MED ONE Stop: 11/07/19 15:30 Last Admin: 11/07/19 15:56 Dose: Not Given Documented by: [id number] Fentanyl Citrate (Fentanyl Citrate) Confirm Administered Dose 100 mcg .ROUTE .STK-MED ONE Stop: 11/07/19 14:13 Last Admin: 11/07/19 15:55 Dose: Not Given Documented by: [id number] Fentanyl Citrate (Fentanyl Citrate) Confirm Administered Dose 100 mcg .ROUTE .STK-MED ONE Stop: 11/07/19 14:55 Last Admin: 11/07/19 15:56 Dose: Not Given Documented by: [id number] Hydralazine HCl (Hydralazine Hcl) Confirm Administered Dose 20 mg .ROUTE .STK- MED ONE Stop: 11/07/19 15:00 Last Admin: 11/07/19 15:56 Dose: Not Given Documented by: [id number] Sodium Chloride (Nss) 250 mls @ 999 mls/hr IV .Q16M ONE Stop: 11/06/19 12:26 Last Infusion: 11/06/19 12:52 Dose: 0 mls/hr Documented by: [id number] Admin: 11/06/19 12:25 Dose: 999 mls/hr Documented by: [id number] Lidocaine HCl (Xylocaine 1% (Local)) Confirm Administered Dose 20 ml .ROUTE .STK-MED ONE Stop: 11/07/19 13:53 Last Admin: 11/07/19 15:55 Dose: Not Given Documented by: [id number] Midazolam HCl (Versed) Confirm Administered Dose 5 mg .ROUTE .STK-MED ONE Stop: 11/07/19 14:13 Last Admin: 11/07/19 15:55 Dose: Not Given Documented by: [id number] Medical Decision Making Differential Diagnosis Differential diagnosis includes etiologies such as vasovagal event, infection, hypoglycemia, electrolyte abnormalities, cardiac sources, intracerebral event, toxicologic, neurologic, as well as others were entertained. Medical Records Attestation: I reviewed the patient's medical records. Home Medications Current Medication List: was personally reviewed by me Laboratory Data Attestation: I reviewed the patient's lab results. Result diagrams: 11/07/19 05:42 11/07/19 05:42 Lab Results 11/06/19 11/06/19 11/06/19 Range/Units 12:03 12:03 12:03 WBC 11.36 H (4.8-10.8) K/uL RBC 4.67 L (4.7-6.1) M/uL Hgb 13.7 L (14.0-18.0) g/dL Hct 43.3 (42-52) % MCV 92.7 (80-100) fL MCH 29.3 (25-34) pg MCHC 31.6 L (32-36) g/dL RDW Std Deviation 47.6 H (36.4-46.3) fL RDW Coeff of Valerie 14.1 (11.5-14.5) % Plt Count 259 (130-400) K/uL MPV 10.0 (7.4-10.4) fL Immature Gran % (Auto) 0.5 % Neut % (Auto) 72.8 % Lymph % (Auto) 14.0 % [place] % (Auto) 6.0 % Eos % (Auto) 6.3 % Baso % (Auto) 0.4 % Immature Gran # (Auto) 0.06 H (0.00-0.02) K/uL Neut # (Auto) 8.28 H (1.4-6.5) K/uL Lymph # (Auto) 1.59 (1.2-3.4) K/uL [place] # (Auto) 0.68 H (0.11-0.59) K/uL Eos # (Auto) 0.71 H (0-0.5) K/uL Baso # (Auto) 0.04 (0-0.2) K/uL Sodium 139 (136-145) mmol/L Potassium 4.2 (3.5-5.1) mmol/L Chloride 107 (98-107) mmol/L Carbon Dioxide 26 (21-32) mmol/L Anion Gap 6.0 (3-11) BUN 12 (7-18) mg/dl Creatinine 1.03 (0.6-1.4) mg/dl Est Cr Clr Drug Dosing 61.1 ml/min Est GFR ( Amer) 81.4 Est GFR (Non-Af Amer) 70.2 BUN/Creatinine Ratio 11.7 (10-20) Glucose 179 H (70-99) mg/dl Calcium 8.0 L (8.5-10.1) mg/dl Magnesium 1.9 (1.8-2.4) mg/dl Total Bilirubin 0.3 (0.2-1) mg/dl AST 88 H (15-37) U/L ALT 104 H (12-78) U/L Alkaline Phosphatase 100 (45-117) U/L Troponin I < 0.015 (0-0.045) ng/ml NT-Pro-B Natriuret Pep 123 (0-1800) pg/ml Total Protein 7.0 (6.4-8.2) gm/dl Albumin 3.5 (3.4-5.0) gm/dl Globulin 3.5 (2.5-4.0) gm/dl Albumin/Globulin Ratio 1.0 (0.9-2) Lipase 1071 H (73-393) U/L Procalcitonin < 0.05 (0-0.5) ng/ml TSH 1.530 (0.300-4.500) uIu/ml Urine Color Urine Appearance (Clear) Urine pH (4.5-7.5) Ur Specific [place] (1.000-1.030) Urine Protein (Negative) Urine Glucose (UA) (Negative) Urine Ketones (Negative) Urine Blood (Negative) Urine Nitrite (Negative) Urine Bilirubin (Negative) Urine Urobilinogen (Negative) Ur Leukocyte Esterase (Negative) Urine WBC (Auto) (0-5) /hpf Urine RBC (Auto) (0-4) /hpf U Hyaline Cast (Auto) (0-5) /lpf U Epithel Cells (Auto) (0-5) /lpf Urine Bacteria (Auto) (Negative) Lyme Disease IgG Ab Positive A (Negative) Lyme Disease IgM Ab Negative (Negative) 11/06/19 Range/Units 12:26 WBC (4.8-10.8) K/uL RBC (4.7-6.1) M/uL Hgb (14.0-18.0) g/dL Hct (42-52) % MCV (80-100) fL MCH (25-34) pg MCHC (32-36) g/dL RDW Std Deviation (36.4-46.3) fL RDW Coeff of Valerie (11.5-14.5) % Plt Count (130-400) K/uL MPV (7.4-10.4) fL Immature Gran % (Auto) % Neut % (Auto) % Lymph % (Auto) % [place] % (Auto) % Eos % (Auto) % Baso % (Auto) % Immature Gran # (Auto) (0.00-0.02) K/uL Neut # (Auto) (1.4-6.5) K/uL Lymph # (Auto) (1.2-3.4) K/uL [place] # (Auto) (0.11-0.59) K/uL Eos # (Auto) (0-0.5) K/uL Baso # (Auto) (0-0.2) K/uL Sodium (136-145) mmol/L Potassium (3.5-5.1) mmol/L Chloride (98-107) mmol/L Carbon Dioxide (21-32) mmol/L Anion Gap (3-11) BUN (7-18) mg/dl Creatinine (0.6-1.4) mg/dl Est Cr Clr Drug Dosing ml/min Est GFR ( Amer) Est GFR (Non-Af Amer) BUN/Creatinine Ratio (10-20) Glucose (70-99) mg/dl Calcium (8.5-10.1) mg/dl Magnesium (1.8-2.4) mg/dl Total Bilirubin (0.2-1) mg/dl AST (15-37) U/L ALT (12-78) U/L Alkaline Phosphatase (45-117) U/L Troponin I (0-0.045) ng/ml NT-Pro-B Natriuret Pep (0-1800) pg/ml Total Protein (6.4-8.2) gm/dl Albumin (3.4-5.0) gm/dl Globulin (2.5-4.0) gm/dl Albumin/Globulin Ratio (0.9-2) Lipase (73-393) U/L Procalcitonin (0-0.5) ng/ml TSH (0.300-4.500) uIu/ml Urine Color Yellow Urine Appearance Clear (Clear) Urine pH 6.0 (4.5-7.5) Ur Specific [place] 1.012 (1.000-1.030) Urine Protein 1+ H (Negative) Urine Glucose (UA) 2+ H (Negative) Urine Ketones Negative (Negative) Urine Blood Negative (Negative) Urine Nitrite Negative (Negative) Urine Bilirubin Negative (Negative) Urine Urobilinogen Negative (Negative) Ur Leukocyte Esterase Negative (Negative) Urine WBC (Auto) 1-5 (0-5) /hpf Urine RBC (Auto) 0-4 (0-4) /hpf U Hyaline Cast (Auto) 1-5 (0-5) /lpf U Epithel Cells (Auto) 10-20 H (0-5) /lpf Urine Bacteria (Auto) Negative (Negative) Lyme Disease IgG Ab (Negative) Lyme Disease IgM Ab (Negative) Imaging Data Radiologist's Impression: XR chest 1V portable CLINICAL HISTORY: chest pain, lightheaded dyspnea COMPARISON STUDY: 11/29/2016 FINDINGS: Minimal interstitial infiltrative process left lung base. Lungs otherwise clear. Diaphragms are smooth. IMPRESSION: Minimal interstitial infiltrate left lung base. ACT 112: Negative or not required by law. The above report was generated using voice recognition software. It may contain grammatical, syntax or spelling errors. Electronically signed by: Emerson Momin M.D. 11/06/2019 1:[address] abd pelvis IV con only CT DOSE: 612.33 mGy.cm HISTORY: nausea, elevated lipase/lft's TECHNIQUE: Multiaxial CT images of the abdomen and pelvis were performed following the use of intravenous contrast. A dose lowering technique was utilized adhering to the principles of ALARA. COMPARISON STUDY: None. FINDINGS: Mild interstitial infiltrative changes left and to a lesser extent right base. Liver spleen and pancreas are unremarkable. 3 cm upper pole right renal cyst. 1.5 cm mid pole left renal cyst. No evidence for renal hydronephrosis. Bilateral nonobstructing nephrocalcinosis. Small upper abdominal fat-containing midline hernia. Mild sigmoid diverticulosis. No evidence for diverticulitis. Several loops of small bowel suggesting slight hyperemia and slight wall thickening. This is consistent with a nonspecific enteritis. IMPRESSION: 1. Nonspecific small bowel enteritis. 2. Bilateral renal cysts with bilateral nonobstructing nephrocalcinosis. 3. No acute process of the pancreas. 4. Bibasilar interstitial parenchymal infiltrative change. ACT 112: Negative or not required by law. The above report was generated using voice recognition software. It may contain grammatical, syntax or spelling errors. Electronically signed by: Emerson Momin M.D. 11/06/2019 2:24 PM ECG Data Attestation: I personally reviewed and interpreted this ECG as follows: Indication: + other (near syncope) Rate (beats per minute): 86 Rhythm: + normal sinus ECG Intervals/blocks: + First degree AV block, + Right Bundle branch block and + Prolonged QT ECG [place]: + Right axis deviation ECG ST segments: + Normal ST segments Comparison ECG Date: from Change: no significant change Blood Pressure Blood Pressure Findings: Elevated blood pressure Blood Pressure Disposition: further management by hospitalist MDM Narrative Patient presenting here today after near syncopal event at home. Patient denies fall or trauma stating he lowered himself to the ground to prevent those. Given patient significant past medical history, labs drawn and sent, imaging performed. Patient had a normal and nonfocal neuro exam at bedside and I do not suspect acute intracranial pathology. Given concern for cardiac history and patient's already implanted loop recorder, the device was interrogated and reports reviewed upon receiving them. Patient also noted to have elevated transaminases and lipase. CT of the abdomen and pelvis did not reveal any acute biliary or pancreatic changes. Incidental finding of possible pneumonia was also noted although patient denies any recent cough or cold, symptoms, no fevers or increased mucus production. Will defer any initiation of antibiotics on this to the hospitalist. Discussed case with Dr. Marcelino and with the hospitalist given patient's likely need for a permanent pacemaker. Patient was made aware of all results and was in agreement with plan. Patient remained hemodynamically stable while here, no recurrent symptoms, no significant bradycardia noted on telemetry. An order was placed for continuous cardiac monitoring. The monitor shows a rate of _66 with _normal sinus_ rhythm. Impression & Plan Near syncope, Bradycardia, Elevated lipase, Transaminitis Discharge Plan Visit Data *Final* Discharge Date/Time: 11/06/19 16:37 Chief Complaint: Syncope (Near Syncope) Stated Complaint: syncope ED Provider: Toshia Pablo Discharge Problem: Near syncope, Bradycardia, Elevated lipase, Transaminitis Patient Disposition: Admitted As Inpatient Discharge Instructions Interventions: ED Discharge Assessment Last Done: 11/06/19 16:37
[2019-11-06 12:18] LABS: Basophils # (auto) 0.04 K/uL (0-0.2); Basophils % (auto) 0.4 %; Eosinophils # (auto) 0.71 K/uL (0-0.5); Eosinophils % (auto) 6.3 %; Hematocrit (blood only) 43.3 % (42-52); Hemoglobin 13.7 g/dL (14.0-18.0); Immature Granulocytes # (auto) 0.06 K/uL (0.00-0.02); Immature Granulocytes % (auto) 0.5 %; Lymphocytes # (auto) 1.59 K/uL (1.2-3.4); Mean Corpuscular Hemoglobin 29.3 pg (25-34); Mean Corpuscular Hgb Conc 31.6 g/dL (32-36); Mean Corpuscular Volume 92.7 fL (80-100); Monocytes # (auto) 0.68 K/uL (0.11-0.59); Neutrophils # (auto) 8.28 K/uL (1.4-6.5); Neutrophils % (auto) 72.8 %; Platelet Count 259 K/uL (130-400); RDW Coefficient of Variation 14.1 % (11.5-14.5); RDW Standard Deviation 47.6 fL (36.4-46.3); Red Blood Count 4.67 M/uL (4.7-6.1); White Blood Count 11.36 K/uL (4.8-10.8)
[2019-11-06 12:27] LABS: Alanine Aminotransferase 104 U/L (12-78); Albumin Level 3.5 gm/dl (3.4-5.0); Aspartate Aminotransferase 88 U/L (15-37); BUN Creatinine Ratio 11.7 (10-20); Blood Urea Nitrogen 12 mg/dl (7-18); Carbon Dioxide 26 mmol/L (21-32); Chloride 107 mmol/L (98-107); Creatinine Clr Calc Pharmacy 61.1 ml/min; Est GFR (African American) 81.4; Est GFR (Non-African American) 70.2; Glucose 179 mg/dl (70-99); Lipase 1071 U/L (73-393); Magnesium 1.9 mg/dl (1.8-2.4); Potassium 4.2 mmol/L (3.5-5.1); Sodium 139 mmol/L (136-145)
[2019-11-06 12:38] LABS: Alkaline Phosphatase 100 U/L (45-117); Bilirubin,Total 0.3 mg/dl (0.2-1); Globulin 3.5 gm/dl (2.5-4.0); NT Pro B Type Natriuretic Pept 123 pg/ml (0-1800); Troponin I < 0.015 ng/ml (0-0.045)
[2019-11-06 12:41] LABS: Appearance Urine Clear (Clear); Bacteria Urine Automated Negative (Negative); Bilirubin Urine Negative (Negative); Blood Urine Negative (Negative); Color Urine Yellow; Glucose Urine UA 2+ (Negative); Ketones Urine Negative (Negative); Leukocyte Esterase Urine Negative (Negative); Nitrite Urine Negative (Negative); Protein Urine 1+ (Negative); RBC Urine Automated 0-4 /hpf (0-4); Specific Gravity Urine 1.012 (1.000-1.030); Urobilinogen Urine Negative (Negative)
[2019-11-06] MEDS ORDERED: ACETAMINOPHEN 325 MG TAB PO STA (12:48)
--- NOTE | 2019-11-06 13:29 | XRay Report ---
XR chest 1V portable CLINICAL HISTORY: chest pain, lightheaded dyspnea COMPARISON STUDY: 11/29/2016 FINDINGS: Minimal interstitial infiltrative process left lung base. Lungs otherwise clear. Diaphragms are smooth. IMPRESSION: Minimal interstitial infiltrate left lung base. ACT 112: Negative or not required by law. The above report was generated using voice recognition software. It may contain grammatical, syntax or spelling errors. Electronically signed by: Emerson Momin M.D. 11/06/2019 1:28 PM
[2019-11-06] MEDS ORDERED: IOVERSOL 100ml IV PRN (13:48)
--- NOTE | 2019-11-06 14:26 | CT Scan Report ---
CT abd pelvis IV con only CT DOSE: 612.33 mGy.cm HISTORY: nausea, elevated lipase/lft's TECHNIQUE: Multiaxial CT images of the abdomen and pelvis were performed following the use of intrave nous contrast. A dose lowering technique was utilized adhering to the principles of ALARA. COMPARISON STUDY: None. FINDINGS: Mild interstitial infiltrative changes left and to a lesser extent right base. Liver spleen and pancreas are unremarkable. 3 cm upper pole right renal cyst. 1.5 cm mid pole left renal cyst. No evidence for renal hydronephros is. Bilateral nonobstructing nephrocalcinosis. Small upper abdominal fat-containing midline hernia. Mild sigmoid diverticulosis. No evidence for div erticulitis. Several loops of small bowel suggesting slight hyperemia and slight wall thickening. This is consiste nt with a nonspecific enteritis. IMPRESSION: 1. Nonspecific small bowel enteritis. 2. Bilateral renal cysts with bilateral nonobstructing nephrocalcinosis. 3. No acute process of the pancreas. 4. Bibasilar interstitial parenchymal infiltrative change. ACT 112: Negative or not required by law. The above report was generated using voice recognition software. It may contain grammatical, syntax or spelling errors. Electronically signed by: Emerson Momin M.D. 11/06/2019 2:24 PM
[2019-11-06] MEDS ORDERED: ATROPINE SULFATE 0.1 MG/ML 10ML SYR IV PRN (17:09)
[2019-11-06 17:46] LABS: Procalcitonin < 0.05 ng/ml (0-0.5)
[2019-11-06 17:53] LABS: Lyme Ab IgM w/WB Rflx Negative (Negative)
[2019-11-06 17:56] LABS: Lyme Ab IgG w/WB Rflx Positive (Negative)
[2019-11-06] MEDS: SODIUM CHLORIDE 0.9% 1000ML 1,000 ML IV SCH (17:58)
[2019-11-06 18:10] LABS: Calcium 8.8 mg/dl (8.5-10.1); Creatinine Clr Calc Pharmacy 62.9 ml/min; Est GFR (African American) 84.4; Est GFR (Non-African American) 72.8; Potassium 4.5 mmol/L (3.5-5.1)
--- NOTE | 2019-11-06 18:20 | CT Scan Report ---
CT head/brain wo con CT DOSE: 1400.53 mGy.cm HISTORY: Mental status change pre syncope TECHNIQUE: Multiaxial CT images of the head were performed without the use of intravenous contrast. A dose lowering technique was utilized adhering to the principles of ALARA. Comparison: None. Findings: The paranasal sinuses and mastoid air cells are clear. The calvarium and skull base are int act. The ventricles and sulci are within normal limits. There is no mass, hematoma, midline shift, or acute infarct. Impression: No acute intracranial abnormality. ACT 112: Negative or not required by law. The above report was generated using voice recognition software. It may contain grammatical, syntax or spelling errors. Electronically signed by: Emerson Mmoin M.D. 11/06/2019 6:18 PM
--- NOTE | 2019-11-06 18:53 | Ultrasound Report ---
US carotid doppler BI HISTORY: Mental status change presyncope COMPARISON: None. TECHNIQUE: Real-time, grayscale, and color Doppler sonography of the carotid arteries was performed. Imaging reviewed in the transverse and longitudinal planes. All measurements were calculated based on NASCET criteria. FINDINGS: Antegrade flow is seen in the bilateral vertebral arteries. The brachial pressures are hemodynamically similar. Plaque formation bilaterally The peak systolic velocity within the right ICA is 135. The right systolic ratio is 2.0. The peak systolic velocity within the left ICA is 75. The left systolic ratio is 1.0. IMPRESSION: 1. 50% stenosis origin right internal carotid artery. 2. No additional significant stenosis. ACT 112: Negative or not required by law. The above report was generated using voice recognition software. It may contain grammatical, syntax or spelling errors. Electronically signed by: Emerson Momin M.D. 11/06/2019 6:52 PM
[2019-11-06] MEDS: DOXYCYCLINE HYCLATE 100 MG CAP PO SCH (18:59)
[2019-11-06] MEDS: ACETAMINOPHEN 325 MG TAB PO PRN ×2 (19:01→23:08)
[2019-11-06] MEDS ORDERED: GLUCOSE 40% GEL 15 GM TUBE PO PRN (19:53)
[2019-11-06] MEDS ORDERED: GLUCOSE 10 TABS/TUBE PO PRN (19:53)
[2019-11-06] MEDS ORDERED: DEXTROSE 50% 50 ML SYRINGE IV PRN (19:53)
[2019-11-06] MEDS ORDERED: GLUCAGON FOR INJ 1 MG VIAL SQ PRN (19:53)
[2019-11-06] MEDS ORDERED: CARBOHYDRATES FOR HYPOGLYCEMIA PO PRN (19:53)
--- NOTE | 2019-11-06 20:10 | History & Physical Report ---
Date of Service November 06, 2019 Assessment & Plan (1) Near syncope: 74-year-old male with history of diabetes type 2, obstructive sleep apnea, CVA, presenting with presyncope this morning. Presyncope, likely secondary to symptomatic bradycardia Interrogation of patient's Linq ion exchange operator revealed episode of bradycardia with heart rate in the 30s Presently, the patient is in sinus rhythm with normal heart rate CT head: No acute process Echocardiogram ordered Lyme IgG positive, Lyme Western blot: Pending TSH within normal limits Transcutaneous pacemaker and atropine ordered to be placed at the bedside Side Laster Staple consulted N.p.o. post midnight, possible pacemaker placement Possible bilateral lower lobe pneumonia Chest x-ray:Minimal interstitial infiltrate left lung base. CT abdomen pelvis: Mild interstitial infiltrative changes left and to a lesser extent right base. Patient is afebrile, no leukocytosis, denies cough, sputum production, fevers or chills Procalcitonin pending COVID test pending Cover with doxycycline 5 mg p.o. twice daily Elevated lipase Lipase 1071 AST 88, ALT 104, alk phos 100 CT abdomen pelvis:Liver spleen and pancreas are unremarkable. Patient denies any abdominal pain, or nausea/vomiting Follow lipase levels and LFTs Diabetes type 2 Hold usual Januvia and metformin Insulin sliding scale for now Obstructive sleep apnea Continue BiPAP History of RCA stenosis Previous study shows right carotid artery stenosis 50 to 69%, left carotid artery stenosis less than 50% On Plavix and Lipitor Carotid Doppler study performed today: 1. 50% stenosis origin right internal carotid artery. 2. No additional significant stenosis. History of CVA Continue Plavix and Lipitor Testicular hypofunction Continue testosterone daily Anxiety Continue Paxil and doxepin DVT prophylaxis SCDs for now in light of possible pacemaker placement CODE STATUS Full code per patient Disposition PT and OT when stable from cardiac standpoint lives with his at home Anticipate discharge to home medically stable Plan of care discussed with patient in detail and at length All questions were answered He is understanding, agreeable, comfortable with plan of care Admission and Anticipated Discharge Date Admission Date: November 06, 2019 History of Present Illness Patient is a 74-year-old male with history of diabetes, obstructive sleep apnea, CVA, other problems noted below presenting with Episode of presyncope this morning. Patient has been evaluated for a syncopal episode in June of this year, with subsequent placement of a Linq ion exchange operator. He follows with Dr. Ludwig and interrogation of the ion exchange operator last month was unremarkable. Patient has been feeling fine since placement of the ion exchange operator until this morning, while the patient was coming home from his daily walk, the patient suddenly felt lightheaded, but fortunately was able to lower himself to the ground to avoid falling. He did not lose consciousness. No chest pain, shortness of breath, palpitations, nausea. He was found by individuals passing by, and was brought to the emergency room via an ambulance. At the ER, patient was received with blood pressure of 123/84, heart rate of 69, respiratory to 16, saturating 97% on room air, afebrile. He was feeling fine upon admission to the ER. EKG showed sinus rhythm with first-degree AV block, right bundle branch block. Interrogation of the Linq ion exchange operator revealed an episode of bradycardia- heart rate 30s. He was admitted for further evaluation and treatment. On exam, the patient was seen sitting up in bedside chair, oriented x3, awake and alert, in good spirits. States he feels improved overall. No recurrence of dizziness, lightheadedness, presyncope/syncope while admitted. No chest pain, shortness of breath, headache. He does report some bilateral rib pain which he attributes to pulling his chest muscles when he was lowering himself to the ground. Primary Care Provider: Rainer Cordova, Allergies Allergy/AdvReac Type Severity Reaction Status Date / Time No Known Allergies Allergy Unverified 11/06/19 13:45 Home Medications Home Medications Medication Instructions Recorded Confirmed Type atorvastatin 40 mg PO DAILY 11/06/19 11/06/19 History clopidogrel 75 mg PO DAILY 11/06/19 11/06/19 History doxepin 10 mg PO DAILY 11/06/19 11/06/19 History metformin 1,000 mg PO BID 11/06/19 11/06/19 History qtacjztnscav-nypi-dmugc acid 1 tab PO HS 11/06/19 11/06/19 History [Centrum] paroxetine HCl 20 mg PO DAILY 11/06/19 11/06/19 History sitagliptin [Januvia] 100 mg PO DAILY 11/06/19 11/06/19 History testosterone [Fortesta] 2 pump TOPICAL DAILY 11/06/19 11/06/19 History tolterodine [Detrol LA] 4 mg PO DAILY 11/06/19 11/06/19 History Past Med/Surg History Medical History (Updated 11/06/19 @ 15:10 by Toshia Pablo DO) Diabetes Hyperlipidemia Social History Preferred Language: Kazakh Communication Ability: Effective Beliefs That Will Affect Care: None Current Living Situation: Spouse Other Information That Helps Us Care for You: No Feels Safe at Home: Yes Safety Concerns: Feels Safe At This Time Smoking Status: Former smoker Hx Alcohol Use: No Hx Substance Use: No Review of Systems Review of Systems: All systems reviewed & are unremarkable except as noted in HPI & below Physical Exam Physical Exam: General- oriented x 3, not in distress, speaks in sentences with no effort or accessory muscle use Head- atraumatic Eyes- PERRL, EOMI, anicteric ENT- oropharynx clear Neck- supple, no JVD, no adenopathy, no thyromegaly; carotids +2/2, no bruits appreciated Lungs- clear to auscultation bilaterally, no rales/wheezes Heart- normal rate, regular rhythm; no murmur, no gallop, no rub appreciated Abdomen- normal bowel sounds, nondistended, soft, nontender, no masses or hepatosplenomegaly Extremities- no pretibial edema, no calf tenderness; peripheral pulses intact Neuro- alert, oriented x 3; CN 2-12 grossly intact; motor 5/5 bilaterally ;sensation 100% on all extremities; no other gross focal neurologic deficits Skin- warm & dry Results & Data Results & Data ([facility]) Vital Signs (Past 12 Hours) Vital Signs Temp Pulse Pulse Resp BP BP Pulse Ox 11/06/19 19:25 36.6 C 89 20 180/94 H 94 11/06/19 17:09 36.6 C 90 16 164/93 H 94 11/06/19 16:37 91 H 20 144/89 H 97 11/06/19 16:25 91 H 20 144/89 H 97 11/06/19 15:00 91 H 23 152/94 H 93 11/06/19 14:00 93 H 23 150/75 H 93 11/06/19 13:30 96 H 21 140/83 95 11/06/19 13:01 99 H 21 149/77 H 97 11/06/19 12:31 92 H 18 155/74 H 99 11/06/19 12:00 87 24 138/65 11/06/19 11:57 86 16 149/73 H 91 11/06/19 11:52 36.6 C 86 19 149/73 H 93 Laboratory Results Laboratory Results - last 24 hr 11/06/19 11/06/19 11/06/19 12:03 12:03 12:03 WBC 11.36 H RBC 4.67 L Hgb 13.7 L Hct 43.3 MCV 92.7 MCH 29.3 MCHC 31.6 L RDW Std Deviation 47.6 H RDW Coeff of Valerie 14.1 Plt Count 259 MPV 10.0 Immature Gran % (Auto) 0.5 Neut % (Auto) 72.8 Lymph % (Auto) 14.0 [place] % (Auto) 6.0 Eos % (Auto) 6.3 Baso % (Auto) 0.4 Immature Gran # (Auto) 0.06 H Neut # (Auto) 8.28 H Lymph # (Auto) 1.59 [place] # (Auto) 0.68 H Eos # (Auto) 0.71 H Baso # (Auto) 0.04 Sodium 139 Potassium 4.2 Chloride 107 Carbon Dioxide 26 Anion Gap 6.0 BUN 12 Creatinine 1.03 Est Cr Clr Drug Dosing 61.1 Est GFR ( Amer) 81.4 Est GFR (Non-Af Amer) 70.2 BUN/Creatinine Ratio 11.7 Glucose 179 H POC Glucose Fasting Glucose Calcium 8.0 L Magnesium 1.9 Total Bilirubin 0.3 AST 88 H ALT 104 H Alkaline Phosphatase 100 Troponin I < 0.015 NT-Pro-B Natriuret Pep 123 Total Protein 7.0 Albumin 3.5 Globulin 3.5 Albumin/Globulin Ratio 1.0 Lipase 1071 H Procalcitonin < 0.05 TSH 1.530 Urine Color Urine Appearance Urine pH Ur Specific [place] Urine Protein Urine Glucose (UA) Urine Ketones Urine Blood Urine Nitrite Urine Bilirubin Urine Urobilinogen Ur Leukocyte Esterase Urine WBC (Auto) Urine RBC (Auto) U Hyaline Cast (Auto) U Epithel Cells (Auto) Urine Bacteria (Auto) Lyme Disease IgG Ab Positive A Lyme IgG (Western Blot) Lyme IgG 18 kDa Band Lyme IgG 23 kDa Band Lyme IgG 28 kDa Band Lyme IgG 30 kDa Band Lyme IgG 39 kDa Band Lyme IgG 41 kDa Band Lyme IgG 45 kDa Band Lyme IgG 58 kDa Band Lyme IgG 66 kDa Band Lyme IgG 93 kDa Band Lyme IgM Ab (WB) Lyme Disease IgM Ab Negative Lyme IgM 23 kDa Band Lyme IgM 39 kDa Band Lyme IgM 41 kDa Band COVID-19 PCR 11/06/19 11/06/19 11/06/19 12:03 12:26 17:12 WBC RBC Hgb Hct MCV MCH MCHC RDW Std Deviation RDW Coeff of Valerie Plt Count MPV Immature Gran % (Auto) Neut % (Auto) Lymph % (Auto) [place] % (Auto) Eos % (Auto) Baso % (Auto) Immature Gran # (Auto) Neut # (Auto) Lymph # (Auto) [place] # (Auto) Eos # (Auto) Baso # (Auto) Sodium Potassium Chloride Carbon Dioxide Anion Gap BUN Creatinine Est Cr Clr Drug Dosing Est GFR ( Amer) Est GFR (Non-Af Amer) BUN/Creatinine Ratio Glucose POC Glucose 147 H Fasting Glucose Calcium Magnesium Total Bilirubin AST ALT Alkaline Phosphatase Troponin I NT-Pro-B Natriuret Pep Total Protein Albumin Globulin Albumin/Globulin Ratio Lipase Procalcitonin TSH Urine Color Yellow Urine Appearance Clear Urine pH 6.0 Ur Specific [place] 1.012 Urine Protein 1+ H Urine Glucose (UA) 2+ H Urine Ketones Negative Urine Blood Negative Urine Nitrite Negative Urine Bilirubin Negative Urine Urobilinogen Negative Ur Leukocyte Esterase Negative Urine WBC (Auto) 1-5 Urine RBC (Auto) 0-4 U Hyaline Cast (Auto) 1-5 U Epithel Cells (Auto) 10-20 H Urine Bacteria (Auto) Negative Lyme Disease IgG Ab Lyme IgG (Western Blot) Pending Lyme IgG 18 kDa Band Pending Lyme IgG 23 kDa Band Pending Lyme IgG 28 kDa Band Pending Lyme IgG 30 kDa Band Pending Lyme IgG 39 kDa Band Pending Lyme IgG 41 kDa Band Pending Lyme IgG 45 kDa Band Pending Lyme IgG 58 kDa Band Pending Lyme IgG 66 kDa Band Pending Lyme IgG 93 kDa Band Pending Lyme IgM Ab (WB) Pending Lyme Disease IgM Ab Lyme IgM 23 kDa Band Pending Lyme IgM 39 kDa Band Pending Lyme IgM 41 kDa Band Pending COVID-19 PCR 11/06/19 11/06/19 17:37 19:25 WBC RBC Hgb Hct MCV MCH MCHC RDW Std Deviation RDW Coeff of Valerie Plt Count MPV Immature Gran % (Auto) Neut % (Auto) Lymph % (Auto) [place] % (Auto) Eos % (Auto) Baso % (Auto) Immature Gran # (Auto) Neut # (Auto) Lymph # (Auto) [place] # (Auto) Eos # (Auto) Baso # (Auto) Sodium 137 Potassium 4.5 Chloride 104 Carbon Dioxide 26 Anion Gap 7.0 BUN 12 Creatinine 1.00 Est Cr Clr Drug Dosing 62.9 Est GFR ( Amer) 84.4 Est GFR (Non-Af Amer) 72.8 BUN/Creatinine Ratio Glucose POC Glucose Fasting Glucose 144 H Calcium 8.8 Magnesium Total Bilirubin AST ALT Alkaline Phosphatase Troponin I NT-Pro-B Natriuret Pep Total Protein Albumin Globulin Albumin/Globulin Ratio Lipase Procalcitonin TSH Urine Color Urine Appearance Urine pH Ur Specific [place] Urine Protein Urine Glucose (UA) Urine Ketones Urine Blood Urine Nitrite Urine Bilirubin Urine Urobilinogen Ur Leukocyte Esterase Urine WBC (Auto) Urine RBC (Auto) U Hyaline Cast (Auto) U Epithel Cells (Auto) Urine Bacteria (Auto) Lyme Disease IgG Ab Lyme IgG (Western Blot) Lyme IgG 18 kDa Band Lyme IgG 23 kDa Band Lyme IgG 28 kDa Band Lyme IgG 30 kDa Band Lyme IgG 39 kDa Band Lyme IgG 41 kDa Band Lyme IgG 45 kDa Band Lyme IgG 58 kDa Band Lyme IgG 66 kDa Band Lyme IgG 93 kDa Band Lyme IgM Ab (WB) Lyme Disease IgM Ab Lyme IgM 23 kDa Band Lyme IgM 39 kDa Band Lyme IgM 41 kDa Band COVID-19 PCR Pending Code Status & VTE Plan Code Status Full code VTE Prophylaxis Plan VTE Prophylaxis will be ordered: Yes
[2019-11-06] MEDS: CEROVITE ADV FORMULA TAB PO SCH (21:05)
[2019-11-06] MEDS: INSULIN ASPART 100 UNITS/ML 3 ML PEN SC SCH (21:08)
[2019-11-07] MEDS: ACETAMINOPHEN 325 MG TAB PO PRN ×2 (03:02→19:14)
[2019-11-07] MEDS: DOXYCYCLINE HYCLATE 100 MG CAP PO SCH ×2 (05:06→18:40)
--- NOTE | 2019-11-07 05:53 | Electrocardiogram Report ---
Test Reason : Blood Pressure : / mmHG Vent. Rate : 086 BPM Atrial Rate : 086 BPM P-R Int : 218 ms QRS Dur : 144 ms QT Int : 410 ms P-R-T Axes : 044 270 066 degrees QTc Int : 490 ms Sinus rhythm with 1st degree A-V block Right bundle branch block Abnormal ECG When compared with ECG of 29-NOV-2016 12:18, Questionable change in QRS axis Confirmed by Kobi Singh ([id number]) on 11/07/2019 5:53:18 AM Referred By: REFERRED SELF Confirmed By:Kobi Singh
[2019-11-07 05:59] LABS: Basophils # (auto) 0.02 K/uL (0-0.2); Basophils % (auto) 0.2 %; Eosinophils # (auto) 0.24 K/uL (0-0.5); Eosinophils % (auto) 1.9 %; Hematocrit (blood only) 40.7 % (42-52); Hemoglobin 13.5 g/dL (14.0-18.0); Immature Granulocytes # (auto) 0.02 K/uL (0.00-0.02); Immature Granulocytes % (auto) 0.2 %; Lymphocytes # (auto) 1.84 K/uL (1.2-3.4); Lymphocytes % (auto) 14.9 %; Mean Corpuscular Hemoglobin 30.5 pg (25-34); Mean Corpuscular Hgb Conc 33.2 g/dL (32-36); Mean Corpuscular Volume 92.1 fL (80-100); Monocytes # (auto) 1.07 K/uL (0.11-0.59); Monocytes % (auto) 8.7 %; Neutrophils # (auto) 9.16 K/uL (1.4-6.5); Neutrophils % (auto) 74.1 %; Platelet Count 258 K/uL (130-400); RDW Coefficient of Variation 14.1 % (11.5-14.5); RDW Standard Deviation 47.5 fL (36.4-46.3); Red Blood Count 4.42 M/uL (4.7-6.1); White Blood Count 12.35 K/uL (4.8-10.8)
[2019-11-07 06:44] LABS: Albumin Level 3.4 gm/dl (3.4-5.0); BUN Creatinine Ratio 12.4 (10-20); Bilirubin Direct 0.1 mg/dl (0-0.2); Calcium 8.9 mg/dl (8.5-10.1); Creatinine Clr Calc Pharmacy 55.4 ml/min; Est GFR (African American) 75.2; Est GFR (Non-African American) 64.9; Magnesium 2.1 mg/dl (1.8-2.4); Potassium 4.1 mmol/L (3.5-5.1)
[2019-11-07 06:47] LABS: Bilirubin,Total 0.5 mg/dl (0.2-1); Total Protein 7.2 gm/dl (6.4-8.2)
[2019-11-07] MEDS: INSULIN ASPART 100 UNITS/ML 3 ML PEN SC SCH ×4 (08:15→20:50)
[2019-11-07] MEDS: CLOPIDOGREL BISULFATE 75 MG TAB PO SCH (08:15)
[2019-11-07] MEDS: ATORVASTATIN 40 MG TAB PO SCH (08:15)
[2019-11-07] MEDS: DOXEPIN HCL 10 MG CAPSULE PO SCH (08:16)
[2019-11-07] MEDS: TOLTERODINE TARTRATE LA 4 MG CAPCR PO SCH (08:16)
[2019-11-07] MEDS: PARoxetine HCL 20 MG TAB PO SCH (08:16)
[2019-11-07] MEDS: SODIUM CHLORIDE 0.9% 1000ML 1,000 ML IV SCH (11:15)
--- NOTE | 2019-11-07 11:54 | Cardiology Consultation ---
Date of Consultation November 07, 2019 Assessment & Plan (1) Syncope and collapse: (2) Symptomatic bradycardia: It does appear that the patient is suffering from symptomatic bradycardia that was found on his LINQ monitor. At this point, the most prudent course of action would be to proceed with permanent pacemaker placement and we will ask Dr. Sanabria to perform the insertion later today. The pathophysiology and treatment options were discussed with the patient at great lengths and he states that he agrees with pacemaker implantation. He has remained NPO after midnight. Will likely then monitor overnight and discharge tomorrow if no further issues. History of Present Illness Reason for Consultation: syncope Requesting Physician: Mor Attending Physician: Dolores Juares, DO History of Present Illness It was my pleasure to see Mr. Castaneda in consultation today November 07, 2019. He is a very pleasant 74-year-old gentleman who normally follows with Dr. Sanabria of our Cardiology practice for history of syncope. He presented to the emergency room on November 06, 2019 with reports of another syncopal event. He states he was going for walk in his neighborhood moderate walking not overly strenuous when he suddenly became very lightheaded. He felt himself starting to pass out so he lowered himself to the ground and lost consciousness. Luckily, he did not suffer any trauma and neighbors were nearby who some 911 as well as his . Upon presentation is initial workup was unremarkable, however, his LINQ was interrogated and showed the event correlated with a bradycardic episode into the 20s. He states he did not feel well the rest of the day yesterday but after getting some sleep last night he is feeling back to normal today. He denies any medication changes as of late and has otherwise been feeling well. Allergies Allergy/AdvReac Type Severity Reaction Status Date / Time No Known Allergies Allergy Unverified 11/06/19 13:45 Home Medications Home Medications Medication Instructions Recorded Confirmed Type atorvastatin 40 mg PO DAILY 11/06/19 11/06/19 History clopidogrel 75 mg PO DAILY 11/06/19 11/06/19 History doxepin 10 mg PO DAILY 11/06/19 11/06/19 History metformin 1,000 mg PO BID 11/06/19 11/06/19 History gvwbscosfrna-rrns-adkqa acid 1 tab PO HS 11/06/19 11/06/19 History [Centrum] paroxetine HCl 20 mg PO DAILY 11/06/19 11/06/19 History sitagliptin [Januvia] 100 mg PO DAILY 11/06/19 11/06/19 History testosterone [Fortesta] 2 pump TOPICAL DAILY 11/06/19 11/06/19 History tolterodine [Detrol LA] 4 mg PO DAILY 11/06/19 11/06/19 History Patient History Medical History Diabetes Hyperlipidemia Social History Preferred Language: Kiswahili Communication Ability: Effective Beliefs That Will Affect Care: None Current Living Situation: Spouse Other Information That Helps Us Care for You: No Feels Safe at Home: Yes Safety Concerns: Feels Safe At This Time Smoking Status: Former smoker Hx Alcohol Use: No Hx Substance Use: No Review of Systems Review of Systems: All systems reviewed & are unremarkable except as noted in HPI & below Physical Exam Physical Exam: General: Awake, alert and oriented x 3. No acute distress. HEENT: Normocephalic, atraumatic. Pupils equal, round and reactive to light and accommodation. Extraocular muscles are intact. Anicteric sclera. Moist mucous membranes. Neck: No JVD. No bruit. Cardiovascular: Regular. Positive S-4. Normal S-1 and S-2. No S-3. No murmurs or rubs. Pulmonary: Clear to auscultation B/L. No rales, rhonchi or wheezing Abdomen: Bowel sounds x 4, soft. No rebound, guarding or tenderness. No orga nomegaly. Extremities: No clubbing, cyanosis or edema. +2 pedal pulses bilaterally. Skin: Warm and dry. Results & Data ([facility]) Vital Signs (Past 12 Hours) Vital Signs Temp Pulse Pulse Resp BP Pulse Ox 11/07/19 11:53 36.5 C 80 18 154/81 H 94 11/07/19 09:00 84 11/07/19 06:49 36.8 C 80 19 149/83 H 93 11/07/19 04:17 36.9 C 76 18 143/81 H 961 H 11/07/19 00:00 85
[2019-11-07] MEDS ORDERED: BUPIVACAINE 0.25% 30 ML VIAL ONE (13:52)
[2019-11-07] MEDS ORDERED: LIDOCAINE HCL 1% 20 ML VIAL ONE (13:52)
[2019-11-07] MEDS ORDERED: BACITRACIN INJ 50,000 UNIT VIAL ONE (13:53)
[2019-11-07] MEDS ORDERED: fentaNYL citrate 100 MCG/2 ML VIAL ONE ×2 (14:12→14:54)
[2019-11-07] MEDS ORDERED: CEFAZOLIN 250 MG/ML 1 GM VIAL ONE (14:12)
[2019-11-07] MEDS ORDERED: MIDAZOLAM HCL 5 MG/ML 1 ML VIAL ONE (14:12)
--- NOTE | 2019-11-07 14:16 | History & Physical Bridge Note ---
Date of Service November 07, 2019 History & Physical Bridge Note I have examined the patient, reviewed the History & Physical and in the interval since the performance of the History & Physical I have noted the following changes of clinical significance: pt with syncope due to marked bradycardia for ppm and linq extraction
--- NOTE | 2019-11-07 14:16 | Pre Anesthesia Assessment ---
Date of Service November 07, 2019 Pre Sedation Assessment Vital Signs Temp Pulse Pulse Resp BP BP Pulse Ox 11/07/19 13:54 81 18 185/96 H 11/07/19 11:53 36.5 C 80 18 154/81 H 94 11/07/19 09:00 84 11/07/19 06:49 36.8 C 80 19 149/83 H 93 11/07/19 04:17 36.9 C 76 18 143/81 H 961 H 11/07/19 00:00 85 11/06/19 22:47 36.6 C 91 H 24 183/103 H 95 11/06/19 22:11 82 16 92 11/06/19 19:25 36.6 C 89 20 180/94 H 94 11/06/19 17:09 36.6 C 90 16 164/93 H 94 11/06/19 16:37 91 H 20 144/89 H 97 11/06/19 16:25 91 H 20 144/89 H 97 11/06/19 15:00 91 H 23 152/94 H 93 Cardiovascular + regular rhythm Respiratory normal respiratory effort, lungs clear to auscultation Pre-Sedation Airway Assessment Smoking Status: Former smoker Hx Sleep Apnea: No Short, Thick Neck: No Oral Cavity: + Dentures Mallampati Class: III ASA: ASA3 NPO Status Date of Last Intake of Fluids: 11/06/19 Time of Last Intake of Fluids: 20:00 Date of Last Intake of Solid Food: 11/06/19 Time of Last Intake of Solid Foods: 20:00 Procedure Planning Contraindications for Sedation: none Current Medications Reviewed: Yes Notes The planned sedation has been discussed with the patient. Informed Consent was obtained. I have identified the patient, determined the appropriateness of sedation and have assessed the patient immediately prior to the procedure. All medicine(s) and interventions are by my order.
[2019-11-07] MEDS ORDERED: HydrALAZINE HCL 20 MG/ML VIAL ONE (14:59)
[2019-11-07] MEDS ORDERED: ENALAPRILAT 2.5 MG/2 ML 2ML VIAL ONE (15:29)
--- NOTE | 2019-11-07 15:42 | Post Anesthesia Assessment ---
Date of Service November 07, 2019 Post Sedation Assessment Vital Signs Temp Pulse Pulse Resp BP BP Pulse Ox 11/07/19 13:54 81 18 185/96 H 11/07/19 11:53 36.5 C 80 18 154/81 H 94 11/07/19 09:00 84 11/07/19 06:49 36.8 C 80 19 149/83 H 93 11/07/19 04:17 36.9 C 76 18 143/81 H 961 H 11/07/19 00:00 85 11/06/19 22:47 36.6 C 91 H 24 183/103 H 95 11/06/19 22:11 82 16 92 11/06/19 19:25 36.6 C 89 20 180/94 H 94 11/06/19 17:09 36.6 C 90 16 164/93 H 94 11/06/19 16:37 91 H 20 144/89 H 97 11/06/19 16:25 91 H 20 144/89 H 97 Recovery Score Activity: Moves 4 extremities Respiration: Deep Breath/Cough Circulation: +/-20% PreAnes Value Consciousness: Fully Awake Oxygen Saturation: > 92% On Room Air Discharge Sedation Level of Care: Fast Track Phase II Post Sedation Plan On clinical assessment, the patient appears to have tolerated the sedation without complications. Patient is recovering as anticipated. Patient will continue to be monitored by nursing and may be discharged when sedation discharge criteria are met per below protocol. Upon Completions of procedure up to 15 minutes continue every 5 minute vital signs and the P.A.R. score; then discharge to a Phase I or Fast Track to Phase II per the following guidelines: * Discharge Patient to appropriate Phase II area if PAR is 8 or greater or return to pre- procedure baseline. The post - procedure orders will be as directed. * If PAR score is less than 8 or not return to pre-procedure baseline then patient will follow Phase I monitoring till PAR is reached for Phase II. The Phase I may be done in procedure room or may call to secure a Phase I area. * If naloxone or flumazenil are used for reversal, hold in Phase I for continued monitoring from when last reversal dose was given for a minimum of 60 minutes or longer pending the nurse and/or physician discretion of patient condition before discharge to Phase II. Please call the Sedation Physician to re-evaluate and complete post-note for discharge to Phase II area. Do NOT discharge from procedure sedation or Phase 1 until post- sedation evaluation note is complete by procedure /sedation MD Sedation Discharge Instructions to be given to the patient at discharge to home.
--- NOTE | 2019-11-07 15:43 | Operative Report ---
Post Operative Report Pre & Post Diagnosis Syncope, intermittent CHB Operation Date: 11/07/19 15:00 <No data on this case meets the specified criteria> I identified the patient and participated in the time-out.: Yes Procedure Operation Date: 11/07/19 15:00 Actual Procedures p Pacer with A/V Leads (Dual) - Vilma Sanabria, DO p Loop Explant - Vilma Sanabria, Surgeon Vilma Sanabria, DO Esthetician Makeup Artist none Estimated Blood Loss 25 Findings Consistent with Post-Op Diagnosis Specimens none Description of Procedure see official report I attest to the content of the Intraoperative Record and any orders documented therein. Any exceptions are noted below.
--- NOTE | 2019-11-07 15:45 | Hospitalist Progress Note ---
Date of Service November 07, 2019 Assessment & Plan (1) Symptomatic bradycardia: Presyncopal episode prompting evaluation in the ER. Pauses on interrogation of loop recorder. Cardiology consulted. Plans for pacemaker today. (2) Pneumonia: Left base infiltrate seen on CXR, however, patient is asymptomatic. Cont doxycycline for now as he is clinically improving and Lyme screen also pending. (3) Transaminitis: resolved. (4) Diabetes: Cont Novolog per scale. Around inpatient goal. (5) Sleep apnea: CPAP qHS (6) Elevated lipase: improved, no signs or symptoms of pancreatitis at this time. (7) PAD (peripheral artery disease): cont medical management (8) Anxiety: cont Paxil per home regimen. (9) DVT prophylaxis: SCDs Full Code Dispo-PCU for 1-2 more days then plan for home. DO [facility] Hospitalist Admission and Anticipated Discharge Date Admission Date: November 06, 2019 Subjective Pt denies issues overnight telemetry review reveals no evidence of block, sinus rhythm NPO for pacemaker implantation later today Pt denies chest pain, SOB Review of Systems Review of Systems: All systems reviewed & are unremarkable except as noted in Subjective Physical Exam Physical Exam: CONSTITUTIONAL: WNWD, vitals as above, generally well- appearing EYES: normal conjunctivae, no scleral icterus ENT: external ear and nose normal, oropharynx clear, MMM RESPIRATORY: crackles at the bases bilaterally, no rales or wheezes, normal respiratory effort CARDIOVASCULAR: regular rate and rhythm, S1 and 2 heard without murmurs, gallops or rubs, no JVD, no peripheral edema CHEST: inspection of chest was normal GASTROINTESTINAL: soft, nontender, nondistended MUSCULOSKELETAL: strength 5/5 throughout, head is normocephalic and atraumatic SKIN: warm and dry NEUROLOGIC: CN 2-12 grossly intact, normal cognition, normal speech no gross focal deficits. PSYCHIATRIC: alert cooperative and oriented to person, place and time. Results & Data Results & Data ([facility]) Vital Signs (Past 12 Hours) Vital Signs Temp Pulse Pulse Resp BP Pulse Ox 11/07/19 13:54 81 18 185/96 H 11/07/19 11:53 36.5 C 80 18 154/81 H 94 11/07/19 09:00 84 11/07/19 06:49 36.8 C 80 19 149/83 H 93 06/08/20 04:17 36.9 C 76 18 143/81 H 961 H Laboratory Results Short CBC 11/07/19 Range/Units 05:42 WBC 12.35 H (4.8-10.8) K/uL Hgb 13.5 L (14.0-18.0) g/dL Hct 40.7 L (42-52) % Plt Count 258 (130-400) K/uL BMP 11/06/19 11/07/19 17:37 05:42 Sodium 137 139 Potassium 4.5 4.1 Chloride 104 106 Carbon Dioxide 26 28 BUN 12 14 Creatinine 1.00 1.10 Glucose 161 H Calcium 8.8 8.9 Liver Function 11/07/19 Range/Units 05:42 Total Bilirubin 0.5 (0.2-1) mg/dl Direct Bilirubin 0.1 (0-0.2) mg/dl AST 32 (15-37) U/L ALT 75 (12-78) U/L Alkaline Phosphatase 110 (45-117) U/L Albumin 3.4 (3.4-5.0) gm/dl Medications Administered Current Inpatient Medications Acetaminophen (Tylenol) 650 mg PO Q4H PRN PRN Reason: Pain or Fever Stop: 12/06/19 17:08 Last Admin: 11/07/19 03:02 Dose: 650 mg Documented by: Atorvastatin Calcium (Lipitor) 40 mg PO DAILY [facility] Stop: 12/07/19 08:59 Last Admin: 11/07/19 08:15 Dose: 40 mg Documented by: Atropine Sulfate (Atropine Sulfate) 0.5 mg IV UD PRN PRN Reason: symptomatic bradycardia Stop: 12/06/19 17:08 Clopidogrel Bisulfate (Plavix) 75 mg PO DAILY [facility] Stop: 12/07/19 08:59 Last Admin: 11/07/19 08:15 Dose: 75 mg Documented by: Dextrose (Dextrose 50%) 25 - 50 ml IV UD PRN; Protocol PRN Reason: Hypoglycemia Protocol Stop: 12/06/19 19:52 Doxepin HCl (Doxepin Hcl) 10 mg PO DAILY [facility] Stop: 12/07/19 08:59 Last Admin: 11/07/19 08:16 Dose: 10 mg Documented by: Doxycycline Hyclate (Vibramycin) 100 mg PO Q12H [facility] Stop: 11/13/19 17:59 Last Admin: 11/07/19 05:06 Dose: 100 mg Documented by: Glucagon (Glucagen) 1 mg SQ UD PRN; Protocol PRN Reason: Hypoglycemia Protocol Stop: 12/06/19 19:52 Glucose (Dex4 Glucose) 4 - 8 tabs PO UD PRN; Protocol PRN Reason: Hypoglycemia Protocol Stop: 12/06/19 19:52 Glucose (Glucose 40%) 15 - 30 gm PO UD PRN; Protocol PRN Reason: Hypoglycemia Protocol Stop: 12/06/19 19:52 Sodium Chloride (Nss 1000ml) 1,000 mls @ 60 mls/hr IV .[id number] [facility] Stop: 12/06/19 17:08 Last Admin: 11/07/19 11:15 Dose: 60 mls/hr Documented by: Insulin Aspart (Novolog Flexpen) 0 units SC ACHS [facility] Stop: 12/06/19 20:59 Last Admin: 11/07/19 11:43 Dose: Not Given Documented by: Ioversol (Optiray 320 100ml) 92 ml IV ONCE PRN PRN Reason: Interaction Checking Stop: 11/10/19 13:47 Last Admin: 11/06/19 13:48 Dose: 92 ml Documented by: Miscellaneous (Order Awaiting Action) 1 ea N/A QS [facility] Stop: 12/07/19 00:00 Last Admin: 11/07/19 08:15 Dose: Not Given Documented by: Miscellaneous (Carbohydrates For Hypoglycemia) 15 - 30 gm PO UD PRN PRN Reason: Hypoglycemia Protocol Stop: 12/06/19 19:52 Multivitamins/Minerals (Multivitamin W/ Minerals Tab) 1 tab PO HS [facility] Stop: 12/06/19 20:59 Last Admin: 11/06/19 21:05 Dose: 1 tab Documented by: Paroxetine HCl (Paxil) 20 mg PO DAILY [facility] Stop: 12/07/19 08:59 Last Admin: 11/07/19 08:16 Dose: 20 mg Documented by: Tolterodine Tartrate (Detrol La) 4 mg PO DAILY [facility] Stop: 12/07/19 08:59 Last Admin: 11/07/19 08:16 Dose: 4 mg Documented by:
[2019-11-07] MEDS: CEROVITE ADV FORMULA TAB PO SCH (20:48)
[2019-11-08] MEDS: ACETAMINOPHEN 325 MG TAB PO PRN (00:20)
[2019-11-08] MEDS ORDERED: TRAMADOL HCL 50 MG TABLET PO PRN (00:48)
[2019-11-08] MEDS: SODIUM CHLORIDE 0.9% 1000ML 1,000 ML IV SCH (01:08)
[2019-11-08] MEDS: DOXYCYCLINE HYCLATE 100 MG CAP PO SCH (05:41)
--- NOTE | 2019-11-08 06:37 | Electrocardiogram Report ---
Test Reason : Blood Pressure : / mmHG Vent. Rate : 081 BPM Atrial Rate : 081 BPM P-R Int : 208 ms QRS Dur : 142 ms QT Int : 424 ms P-R-T Axes : 027 267 054 degrees QTc Int : 492 ms Normal sinus rhythm Right bundle branch block Abnormal ECG When compared with ECG of 06-NOV-2019 11:59, No significant change was found Confirmed by Kobi Singh ([id number]) on 11/08/2019 6:37:09 AM Referred By: REFERRED SELF Confirmed By:Kobi Singh
[2019-11-08 06:52] LABS: Albumin Level 3.5 gm/dl (3.4-5.0); Bilirubin Direct 0.1 mg/dl (0-0.2); Bilirubin,Total 0.6 mg/dl (0.2-1); Total Protein 7.3 gm/dl (6.4-8.2)
[2019-11-08] MEDS: DOXEPIN HCL 10 MG CAPSULE PO SCH (08:20)
[2019-11-08] MEDS: PARoxetine HCL 20 MG TAB PO SCH (08:20)
[2019-11-08] MEDS: TOLTERODINE TARTRATE LA 4 MG CAPCR PO SCH (08:20)
[2019-11-08] MEDS: ATORVASTATIN 40 MG TAB PO SCH (08:21)
[2019-11-08] MEDS: CLOPIDOGREL BISULFATE 75 MG TAB PO SCH (08:21)
[2019-11-08] MEDS: INSULIN ASPART 100 UNITS/ML 3 ML PEN SC SCH ×2 (08:54→12:13)
--- NOTE | 2019-11-08 10:16 | Cardiology Progress Note ---
Date of Service November 08, 2019 Assessment & Plan (1) Syncope and collapse: (2) Symptomatic bradycardia: It does appear that the patient is suffering from symptomatic bradycardia that was found on his LINQ monitor. Status post dual-chamber permanent pacemaker placement without complication. Device check reveals an appropriately functioning device Await chest x-ray there is been ordered for this a.m., as long as there are no complications okay to discharge from a cardiac standpoint. My office will call to arrange follow-up and establish with our device clinic. Subjective Patient seen and examined, chart reviewed. Patient states he feels great. His only discomfort is coming from his bruised ribs after the fall. Denies any pocket site discomfort. Denies chest pain, shortness of breath, palpitations, lightheadedness, dizziness or syncope. Telemetry reviewed: Normal sinus rhythm without arrhythmia or significant bradycardic episodes. Review of Systems Review of Systems: All systems reviewed & are unremarkable except as noted in HPI & below Physical Exam Physical Exam: General: Awake, alert and oriented x 3. No acute distress. HEENT: Normocephalic, atraumatic. Pupils equal, round and reactive to light and accommodation. Extraocular muscles are intact. Anicteric sclera. Moist mucous membranes. Neck: No JVD. No bruit. Cardiovascular: Regular. Positive S-4. Normal S-1 and S-2. No S-3. 3/6 mid to late systolic ejection murmur, greatest at the right sternal border, second intercostal space with radiation to the bilateral carotids. No rubs. Pulmonary: Clear to auscultation bilaterally. No rales, rhonchi, or wheezing. Abdomen: Bowel sounds x 4, soft. No rebound, guarding or tenderness. No organomegaly. Extremities: No clubbing, cyanosis or edema. +2 pedal pulses bilaterally. Skin: Warm and dry. Results & Data Vital Signs (Past 12 Hours) Vital Signs Temp Pulse Pulse Resp BP Pulse Ox 11/08/19 07:48 37.3 C 85 17 119/71 93 11/08/19 07:20 83 11/08/19 03:45 37 C 85 18 116/68 95 11/08/19 00:11 64 11/07/19 23:19 36.6 C 83 16 125/71 93
--- NOTE | 2019-11-08 12:23 | Operative Report (OR) ---
DATE OF OPERATION: 11/07/2019 PREOPERATIVE DIAGNOSES: Syncope and intermittent complete heart block. POSTOPERATIVE DIAGNOSES: Syncope and intermittent complete heart block. PROCEDURE: Dual chamber rate responsive permanent pacemaker under fluoroscopic guidance along with peripheral venogram as well as the LINQ extraction. SURGEON: Vilma Sanabria DO. FRAMING MECHANIC: None. ANESTHESIA: Monitored conscious sedation administered under my supervision by Elisa Clarke. Start time 1427 hours, end time 1539 hours. Total of 4 mg of Versed, 125 mcg of fentanyl. INTRAVENOUS FLUIDS: 30 mL. ANTIBIOTICS: Two grams of Ancef. CONTRAST: 10 mL. ADDITIONAL MEDICINES: 10 mg of hydralazine and 5 mg of Vasotec. BLOOD LOSS: 25 mL. URINE OUTPUT: Not applicable. SPECIMENS: None. FINDINGS: See below. DRAINS: None. INDICATIONS: This is a 74-year-old gentleman with past medical history of syncope where he underwent a loop insertion in 06/2019, hyperlipidemia, diabetes, hypertension, right bundle branch block, first degree AV block, obstructive sleep apnea - on BiPAP, obesity, history of skin cancer, nonmelanoma, anxiety, history of CVA with right-sided weakness - on Plavix. He was admitted to [facility] on 11/06/2019 after a syncopal fall and his LINQ was interrogated and shown that the syncopal fall was correlated with a long episode of intermittent complete heart block, so the patient was recommended a pacemaker. CONSENT: Consent was obtained prior to the patient going into the electrophysiology lab. The patient was informed of the risks, benefits and alternative procedure. Risks include but not limited to sudden cardiac , cardiac arrhythmias, cerebrovascular accident, myocardial infarction, injury to the blood vessels, chamber of the heart, lung, bleeding, and infection. The patient understood these risks and agrees to the procedure as planned. Informed consent was obtained. DESCRIPTION OF THE PROCEDURE: The patient was brought into the electrophysiology lab in fasting state. He was connected to continuous cardiac cath lab technologist. Timeout was performed to ensure patient identity and procedure correctly. The patient was prepped and draped over the left infraclavicular space in normal surgical standard fashion. Monitored conscious sedation was given throughout the procedure for patient's comfort level. [place] precautions were maintained throughout the procedure. He received prophylactic antibiotics prior to incision. 20 mL of 1% lidocaine-bupivacaine mixture was given in the left deltopectoral groove. Incision was made in the left deltopectoral groove. Blunt dissection was performed down to identify the cephalic vein. It was a little up high, so I ended up doing a peripheral venogram to identify the axillary vein. Venous access was obtained through an axillary stick without any problems. Guidewire was inserted without any resistance. An 8-Jamaican sheath was inserted over the guidewire without any resistance. Dilator was removed and a second guidewire was inserted through the 8-Jamaican sheath to allow for retained venous access. Sheath was removed, flushed, dilator reinserted over and then was reinserted over one of the guidewires. The guidewire and dilator removed. The right ventricular lead was then advanced into right ventricle and positioned in the right ventricular apex under fluoroscopic guidance. There was adequate pacing and sensing thresholds and no diaphragmatic stimulation with high output pacing. The 8-Jamaican sheath was peeled away and the lead was fixated to pectoralis muscle using 0 silk suture. A second 8-Jamaican sheath was inserted over the retained guidewire without any resistance. Guidewire and dilator removed. The right atrial lead was then advanced into right atrium and positioned in the right atrial appendage under fluoroscopic guidance. There was adequate pacing and sensing thresholds and no diaphragmatic stimulation with high output pacing. The 8-Jamaican sheath was peeled away and lead was fixated to pectoralis muscle using 0 silk suture. A pursestring was placed around the venous puncture site to minimize any further back bleeding. A pacemaker pocket was created using blunt dissection over the pectoralis muscle within the pectoralis fascia. The pocket was flushed with copious amounts of bacitracin saline wash and inspected for hemostasis. Pulse generator was then attached to the leads making sure that the pins were in appropriate position, passed set screws and set screws were all tightened. Pulse generator was then placed in antibiotic pouch, then placed in the pocket, making sure that the leads were lying flat beneath the device. Incision was closed in a 3-layer fashion using 2-0 Vicryl interrupted suture followed by 3-0 Vicryl interrupted suture, followed by a 4-0 Monocryl running stitch and Dermabond was applied, followed then by a Telfa and Tegaderm dressing at the end of the entire case. After I put the Dermabond on the pacemaker incision, I then gave 10 mL of 1% lidocaine-bupivacaine mixture over the LINQ incision. Then I made an incision over the LINQ incision and the LINQ was extracted. The LINQ pocket was flushed with saline and then closed with 3-0 interrupted suture followed by 4-0 Vicryl running stitch and Dermabond was applied. Of note, the patient was getting more confused with Versed and his blood pressure was up, so we had given additional medicines for the blood pressure and it calms him down. EQUIPMENT: 1. Explanted LINQ is [id number], serial number [id number], implanted 06/07/2019. 2. Pulse generator is a [employer]onic [place] XT DR MARII Peres [id number], serial number [id number]. 3. The Tyrx pouch, reference number [id number], lot number [id number], expiration 09/20/2020. 4. Right atrial lead Medtronic 5076-52 cm, serial number [id number]. 5. Right ventricular lead, Medtronic 5076-58 cm, serial number [id number]. INTRAOPERATIVE TESTIN. Right atrial lead: P waves 4.6 millivolts, impedance 672 ohms, threshold 0.6 volts at 0.5 milliseconds. 2. Right ventricular lead: R waves 10.2 millivolts, impedance 1190 ohms, threshold 0.8 volts at 0.5 milliseconds. FINAL MEASUREMENTS THROUGH THE DEVICE: 1. Right atrial lead: P waves 2.1 millivolts, impedance 494 ohms, threshold 0.75 volts at 0.4 milliseconds. 2. Right ventricular lead: R waves 8.1 millivolts, impedance 817 ohms, threshold 0.75 volts at 0.4 milliseconds. FINAL PARAMETERS: MVP 60/130, right atrial amplitude 3.5 volts, pulse width 0.4 milliseconds, sensitivity 0.3 millivolts. Right ventricular amplitude 3.5 volts, pulse width 0.4 milliseconds, sensitivity 0.9 millivolts. IMPRESSION: Successful implantation of a dual chamber rate responsive permanent pacemaker under fluoroscopic guidance along with peripheral venogram secondary to syncope and intermittent complete heart block along with a LINQ extraction. PLAN: Monitor patient overnight, 12-lead ECG, chest x-ray. He is not allowed to lift left elbow or left shoulder for 1 month. He cannot lift more than 10 pounds with the left arm for 2 weeks. He can shower. He is to leave the dressing on and dry until his wound check next week at [facility]. I attest to the content of the Intraoperative Record and any orders documented therein. Any exception s are noted below.
--- NOTE | 2019-11-08 13:43 | XRay Report ---
XR chest 2V PA/lateral CLINICAL HISTORY: Post pacemaker insertion. COMPARISON STUDY: Chest CT November 06, 2019. FINDINGS: There is no pneumothorax following placement of a dual-lead left subclavian pacemaker. Ther e is no evidence for pulmonary edema. Left basilar opacity favors atelectasis. The lead tips project over the right atrial appendage and right ventricle. Incidental note is made of an azygos fissure. IMPRESSION: No pneumothorax placement of a dual lead left subclavian pacemaker. ACT 112: Negative or not required by law. Electronically signed by: Ike Peace M.D. 11/08/2019 1:41 PM
--- NOTE | 2019-11-08 14:17 | Hospitalist Progress Note ---
Date of Service November 08, 2019 Assessment & Plan (1) Symptomatic bradycardia: Experienced near-syncope at home. Cardiac loop monitor showed several prolonged pauses. Cardiology consulted. Pacemaker indicated for symptomatic bradycardia. Dual chamber pacemaker placed by Dr. Sanabria. (2) Pneumonia: Chest x-ray and CT demonstrated basilar infiltrates. No fever or cough. ? pneumonia vs atelectasis. Treat with doxycycline. Check follow-up chest x-ray in 1 month. (3) Elevated lipase: Serum lipase was 1071 at time of admission and fell to 221 over 2 days. Patient fell and struck his anterior abdomen at home. No hepatobiliary abnormalities or acute findings on CT. Elevated lipase probably secondary to trauma from fall. (4) Positive Lyme disease serology: Lyme screen- + IgG / negative IgM. Western blot pending. Patient reports being treated for Lyme disease twice in the past. Negative IgM makes recent exposure unlikely. Receiving doxycycline for possible pneumonia as well as possible active Lyme disease. Duration of doxycycline therapy to be determined after Western blot results back. (5) Diabetes: DM type 2, usually managed with metformin. Metformin held during hospital stay. Received insulin coverage as needed. FBS day of discharge = 156. Resume metformin upon discharge. (6) Hyperlipidemia: Continue atorvastatin. (7) Carotid artery disease: Carotid duplex demonstrated 50% stenosis right internal carotid artery. Continue clopidogrel and atorvastatin. Repeat duplex in 1 year recommended. (8) DVT prophylaxis: SCD's ordered. Ambulating. (9) Discharge planning issues: Discharge to home. Internal Medicine follow-up with Dr. Cordova. Admission and Anticipated Discharge Date Admission Date: November 06, 2019 Subjective Recheck for symptomatic bradycardia. Patient seen in their room around 1400. Doing well after pacemaker placement. No CP, SOB, lightheadedness, or other problems. Anxious to go home Physical Exam Constitutional: no acute distress Respiratory: no respiratory distress Auscultation: lungs clear to ausculta tion bilaterally Cardiovascular: Rate/Rhythm: regular rate and regular rhythm Vessels: no JVD Extremities: no calf tenderness and no edema Chest (Breasts): Additional Comments: left subclavian pacemaker site bandaged; no apparent hematoma Gastrointestinal (Abdomen): normal bowel sounds, soft, nontender, no hepatosplenomegaly Skin: no rashes, warm and dry Psychiatric: Orientation: alert and oriented x 3 Results & Data Results & Data ([facility]) Vital Signs (Past 12 Hours) Vital Signs Temp Pulse Pulse Resp BP Pulse Ox 11/08/19 11:30 36.5 C 83 18 121/74 93 11/08/19 07:48 37.3 C 85 17 119/71 93 11/08/19 07:20 83 11/08/19 03:45 37 C 85 18 116/68 95
[2019-11-08 15:59] LABS: 18KDIGG Band REACTIVE; 23KDIGG Band REACTIVE; 23KDIGM Band NON-REACTIVE; 28KDIGG Band NON-REACTIVE; 30KDIGG Band NON-REACTIVE; 39KDIGG Band REACTIVE; 39KDIGM Band NON-REACTIVE; 41KDIGG Band REACTIVE; 41KDIGM Band NON-REACTIVE; 45KDIGG Band NON-REACTIVE; 58KDIGG Band NON-REACTIVE; 66KDIGG Band NON-REACTIVE; 93KDIGG Band NON-REACTIVE; Lyme Antibodies, WB IgG NEGATIVE (NEGATIVE); Lyme Antibodies, WB IgM NEGATIVE (NEGATIVE)
--- NOTE | 2019-11-09 05:35 | Discharge Summary ---
Date of Service Date of Admission: 11/06/19 Date of Discharge: 11/08/19 Admission HPI Per Admitting Provider Patient is a 74-year-old male with history of diabetes, obstructive sleep apnea, CVA, other problems noted below presenting with Episode of presyncope this morning. Patient has been evaluated for a syncopal episode in June of this year, with subsequent placement of a [place] city detective. He follows with Dr. Ludwig and interrogation of the city detective last month was unremarkable. Patient has been feeling fine since placement of the city detective until this morning, while the patient was coming home from his daily walk, the patient suddenly felt lightheaded, but fortunately was able to lower himself to the ground to avoid falling. He did not lose consciousness. No chest pain, shortness of breath, palpitations, nausea. He was found by individuals passing by, and was brought to the emergency room via an ambulance. At the ER, patient was received with blood pressure of 123/84, heart rate of 69, respiratory to 16, saturating 97% on room air, afebrile. He was feeling fine upon admission to the ER. EKG showed sinus rhythm with first-degree AV block, right bundle branch block. Interrogation of the [place] city detective revealed an episode of bradycardia- heart rate 30s. He was admitted for further evaluation and treatment. On exam, the patient was seen sitting up in bedside chair, oriented x3, awake and alert, in good spirits. States he feels improved overall. No recurrence of dizziness, lightheadedness, presyncope/syncope while admitted. No chest pain, shortness of breath, headache. He does report some bilateral rib pain which he attributes to pulling his chest muscles when he was lowering himself to the ground. Primary Care Provider: Rainer Cordova DO Principal Diagnosis symptomatic bradycardia near-syncope Discharge Data Allergies Allergy/AdvReac Type Severity Reaction Status Date / Time No Known Allergies Allergy Unverified 11/06/19 13:45 Consultations 11/06/19 15:07 ED Decision to Admit Stat 11/06/19 17:09 Consult Cardiology Routine Consult Cardiology Routine Procedures Performed Operation Date: 11/07/19 15:00 Actual Procedures p Pacer with A/V Leads (Dual) - Vilma Sanabria DO p Loop Explant - Vilma Sanabria DO Ordered Studies 11/06/19 13:35 CT abd pelvis IV con only Stat 11/06/19 17:09 CT head/brain wo con Stat US carotid doppler BI Urgent 11/07/19 11:09 CL Cath Imgs for PACS use only Routine Hospital Course (1) Symptomatic bradycardia: Experienced near-syncope at home. Cardiac loop monitor showed several prolonged pauses. Cardiology consulted. Pacemaker indicated for symptomatic bradycardia. Dual chamber pacemaker placed by Dr. Sanabria. (2) Pneumonia: Chest x-ray and CT demonstrated basilar infiltrates. No fever or cough. ? pneumonia vs atelectasis. Treat with doxycycline. Check follow-up chest x-ray in 1 month. (3) Elevated lipase: Serum lipase was 1071 at time of admission and fell to 221 over 2 days. Patient fell and struck his anterior abdomen at home. No hepatobiliary abnormalities or acute findings on CT. Elevated lipase probably secondary to trauma from fall. (4) Positive Lyme disease serology: Lyme screen- + IgG / negative IgM. Western blot pending. Patient reports being treated for Lyme disease twice in the past. Negative IgM makes recent exposure unlikely. Receiving doxycycline for possible pneumonia as well as possible active Lyme disease. Duration of doxycycline therapy to be determined after Western blot results back. (5) Diabetes: DM type 2, usually managed with metformin. Metformin held during hospital stay. Received insulin coverage as needed. FBS day of discharge = 156. Resume metformin upon discharge. (6) Hyperlipidemia: Continue atorvastatin. (7) Carotid artery disease: Carotid duplex demonstrated 50% stenosis right internal carotid artery. Continue clopidogrel and atorvastatin. Repeat duplex in 1 year recommended. (8) DVT prophylaxis: SCD's ordered. Ambulating. (9) Discharge planning issues: Discharge to home. Internal Medicine follow-up with Dr. Cordova. Total Time Total Time Spent Total Time Spent (In Minutes): 40 Discharge Plan Discharge Items Patient Disposition: Home - Self-Care Reason For Visit: weakness / lightheadedness Discharge Diagnosis: bradycardia (slow heart beat) Activity: As commented below Activity Comment: do not lift the left elbow over the left shoulder for 1 month Lifting: No more than 10 pounds Lifting Comment: do not lift more than 10 pounds with the left arm for 2 weeks Bathing: Keep incision dry Bathing Comment: keep dressing on and dry until wound check next week Non-emergency contact: Primary Care Provider, Hospitalist and Tap Builder Call non-emergency contact if: you have any medication questions, your symptoms worsen and your temperature is above 101 Follow-up/Referrals: Rainer Cordova, [Primary Care Provider] - (11/16/2019 11:20 AM Rainer Cordova DO General Internal Medicine [facility]) Diet: Carb Consistent or DM2 and Heart Healthy Addtl Attending Provider Instructions: FOLLOW-UP APPOINTMENTS: Oneida Knowles Device and wound check on 11/15/2019 at 12:45 (Thursday) 11/16/2019 11:20 AM Rainer Cordova DO General Internal Medicine [facility] 12/07/2019 11:00 AM Doc Stokes Jr., DO Cardiology [facility] MEDICATION CHANGES: doxycycline 100 mg twice a day for 8 days This will treat possible pneumonia and possible Lyme disease. If Lyme disease is confirmed, Dr. Cordova will give you prescription for additional length of time. SUMMARY OF TEST RESULTS: Heart monitor showed slow heart beat. Chest x-ray showed possible pneumonia. Please ask Dr. Cordova to check repeat x-ray in about [address] scan showed kidney stones and cysts.. Ultrasound of carotid arteries showed some blockage on the right side. Continue taking clopidogrel (Plavix) and atorvastatin (Lipitor). Please ask Dr. Cordova to check repeat ultrasound in 1 year. Screening test for Lyme disease showed possible exposure. Results for confirmation are pending. Test for COVID-19 was negative. OTHER INSTRUCTIONS: Seek medical attention if you have: * temperature above 101 * chest pain or trouble breathing * abdominal pain, nausea, vomiting * diarrhea, dark stools or bloody stools * any unanswered questions or concerns Call 911 if symptoms are severe. Please take good care of yourself. Call if you have any questions or problems. You can reach a [facility] hospitalist on duty at [facility] 24 hours a day by calling [phone]. My cell # is [phone]. Pending Studies at Discharge: Yes Stand-Alone Forms: My [facility], Smoking Cessation Medications and DC Order Prescriptions: New doxycycline hyclate 100 mg capsule 100 mg PO BID 8 Days Qty: 16 RF: 0 Continued testosterone [Fortesta] 10 mg/0.5 gram /actuation gel in metered-dose pump 2 pump topical DAILY RF: 0 atorvastatin 40 mg tablet 40 mg PO DAILY RF: 0 tolterodine [Detrol LA] 4 mg capsule,extended release 24hr 4 mg PO DAILY RF: 0 clopidogrel 75 mg tablet 75 mg PO DAILY RF: 0 doxepin 10 mg capsule 10 mg PO DAILY RF: 0 paroxetine HCl 20 mg tablet 20 mg PO DAILY RF: 0 metformin 1,000 mg tablet 1,000 mg PO BID RF: 0 Januvia 100 mg tablet 100 mg PO DAILY RF: 0 Centrum 18-400 mg-mcg Tablet 1 tab PO HS RF: 0 Discharge Orders: Discharge Order (Routine); Ordered 11/08/19 Ordered By: Zenon Maloney Admission Data Admit Date/Time: 11/06/19 15:44 Attending Provider: Zenon Maloney Admit Provider: Reece Gurrola Primary Care Provider: Rainer Cordova Other Providers: Anjum Marcelino ; Reece Gurrola ; Dolores Juares Other Interventions: Discharge Summary Assessment (RN) Last Done: 11/08/19 14:25 DC Date/Time DO NOT enter until pt leaves facility: 11/08/19 15:28
== END 2019-11-08 15:28 | disposition home or self-care (01) | DRG 242 ==
LOC: ED 11:52 → 2S 15:44 → SUATTDRO 15:44 → 2S 16:37

== ENCOUNTER 2025-05-27 06:30 | Observation (INO) ==
[2025-05-27 06:59] LABS: Hematocrit (blood only) 37.1 % (42.0-52.0); Hemoglobin 13.0 g/dL (14.0-18.0); Immature Granulocytes # (auto) 0.04 K/uL (0.01-0.20); Immature Granulocytes % (auto) 0.4 %; Mean Corpuscular Hemoglobin 30.8 pg (25.0-34.0); Mean Corpuscular Volume 87.9 fL (80.0-100.0); Platelet Count 188 K/uL (130-400); RDW Standard Deviation 47.6 fL (36.4-46.3); Red Blood Count 4.22 M/uL (4.70-6.10); White Blood Count 9.20 K/ul (4.8-10.8)
[2025-05-27] MEDS: SODIUM CHLORIDE 0.9% 1,000 ML IV SCH (07:09)
[2025-05-27] MEDS: CEFEPIME 2000MG 2,000 MG/20 ML SYR IV STA (07:10)
[2025-05-27 07:32] LABS: Alanine Aminotransferase 84.0 U/L (7-52); Albumin Level 4.1 gm/dl (3.4-5.0); Alkaline Phosphatase 121.0 U/L (34-104); Anion Gap 9.0 (3-11); Bilirubin,Total 0.5 mg/dl (0.2-1.0); Blood Urea Nitrogen 18.0 mg/dl (6-23); Calcium 8.4 mg/dl (8.6-10.3); Carbon Dioxide 23.0 mmol/L (21-32); Chloride 103.0 mmol/L (98-107); Creatinine Clr Calc Pharmacy 37.8 ml/min; Glucose 162.0 mg/dl (70-99(Fasting)); Magnesium 1.8 mg/dl (1.7-2.4); Potassium 3.7 mmol/L (3.5-5.1); Sodium 135.0 mmol/L (136-145); Total Protein 7.2 gm/dl (6.0-8.3)
--- NOTE | 2025-05-27 07:38 | Emergency Department Note ---
History of Present Illness General Chief complaint: Weakness Stated complaint: weakness Time Seen by Provider: 05/27/25 06:47 Source: patient Mode of arrival: EMS Limitations: no limitations History of Present Illness Patient is a 80-year-old male with history of CAD, PAD, hyperlipidemia, diabetes, CVA, recurrent UTIs who presents with increased urinary frequency. He states he was up out of bed 3 times last night with urinary urgency. He states this is usually how his UTI started. Denies any discoloration of the urine or hematuria. No fevers, chills, body aches, flank pain, abdominal pain. Denies any testicular pain or swelling. No change in bowel movements. Home Medications Medication Instructions Recorded Confirmed Type atorvastatin 40 mg tablet 40 mg PO DAILY 11/06/19 05/27/25 History clopidogrel 75 mg tablet 75 mg PO DAILY 11/06/19 05/27/25 History doxepin 10 mg capsule 10 mg PO HS 11/06/19 05/27/25 History metformin 1,000 mg tablet 1,000 mg PO BID 11/06/19 05/27/25 History paroxetine HCl 20 mg tablet 20 mg PO DAILY 11/06/19 05/27/25 History mirabegron 50 mg tablet,extended 50 mg PO DAILY 02/19/20 05/27/25 History release 24 hr (Myrbetriq) cefdinir 300 mg capsule 300 mg PO BID #14 caps 12/07/23 05/27/25 Rx exenatide microspheres 2 mg/0.85 2 mg subcut UD 12/07/23 05/27/25 History mL subcutaneous auto-injector (Byjefferson Martinez) finasteride 5 mg tablet 5 mg PO DAILY 12/07/23 05/27/25 History glipizide 2.5 mg tablet, extended 2.5 mg PO DAILY 12/07/23 05/27/25 History release 24 hr metoprolol succinate 25 mg 25 mg PO DAILY 12/07/23 05/27/25 History tablet,extended release 24 hr oxybutynin chloride 5 mg 5 mg PO DAILY 12/07/23 05/27/25 History tablet,extended release 24 hr sertraline 50 mg tablet 50 mg PO QAM 12/07/23 05/27/25 History Allergies Allergy/AdvReac Type Severity Reaction Status Date / Time No Known Allergies Allergy Unverified 02/19/20 06:20 Past Med/Surg History Problem List (Updated 05/27/25 @ 12:11 by Amado Garcia MD) Upper respiratory infection, viral (Acute) Elevated troponin (Acute) Infection due to human metapneumovirus (hMPV) Carotid artery disease 11/06/19 duplex showed 50% stenosis R ICA Positive Lyme disease serology Anxiety PAD (peripheral artery disease) Pneumonia Symptomatic bradycardia Near syncope (Acute) Hyperlipidemia Diabetes Sleep apnea (Chronic) CVA (cerebral vascular accident) TIA (transient ischemic attack) Social History Smoking Status: Former smoker Tobacco Type: Cigars Hx Alcohol Use: No Hx Substance Use: No Preferred Language: [place] Communication Ability: Effective Beliefs That Will Affect Care: None Current Living Situation: Spouse Feels Safe at Home: Yes Assistive Devices: Brace/Splint/Immobilizer Review of Systems Review of systems negative outside of positive findings mentioned in HPI. Physical Exam Vital Signs Vital Signs - 24 hr 05/27/25 06:37 05/27/25 06:37 05/27/25 06:39 Temperature 37.1 C Temperature Source Oral Pulse Rate 86 85 85 Pulse Rate from SpO2 Sensor 85 Pulse Rhythm Regular Pulse Strength Normal Respiratory Rate 20 19 Respiratory Effort / Characteristics Non-Labored Spontaneous Respiratory Depth Normal Respiratory Pattern Regular Blood Pressure 137/70 137/70 Blood Pressure Mean 92 92 Blood Pressure Position Sitting Pulse Oximetry 93 93 Oxygen Delivery Method Room Air Sepsis Recent Fever Within 48 Hours Yes Sepsis New/Unexplained Change in Mental Status N/A Sepsis Action Taken by Nursing No Action Required 05/27/25 07:00 05/27/25 07:30 05/27/25 10:50 Temperature Temperature Source Pulse Rate 79 83 74 Pulse Rate from SpO2 Sensor 79 Pulse Rhythm Pulse Strength Respiratory Rate 14 19 Respiratory Effort / Characteristics Respiratory Depth Respiratory Pattern Blood Pressure 128/71 142/77 H Blood Pressure Mean 90 98 Blood Pressure Position Pulse Oximetry 95 95 Oxygen Delivery Method Sepsis Recent Fever Within 48 Hours Sepsis New/Unexplained Change in Mental Status Sepsis Action Taken by Nursing See below Constitutional WD/WN, vitals as above Respiratory normal respiratory effort, lungs clear to auscultation Cardiovascular RRR, no murmur, no edema Gastrointestinal (Abdomen) normal bowel sounds, soft, nontender, no hepatosplenomegaly Genitourinary no testicular masses, no penis abnormality no testicular swelling and no testicular tenderness Course Administered Medications Discontinued Medications Sodium Chloride (Nss) 1,000 mls @ 999 mls/hr IV .Q1H1M CYRIL Stop: 05/27/25 07:45 Last Admin: 05/27/25 07:09 Dose: 999 mls/hr Documented By: KEVIN Cefepime HCl (Maxipime 2000mg) 2,000 mg in 20 mls @ 5 mls/min IV NOW STA; Protocol Stop: 05/27/25 06:41 Last Admin: 05/27/25 07:10 Dose: 5 mls/min Documented By: KEVIN Medical Decision Making Differential Diagnosis DDx includes but not limited to: Viral URI, UTI, pneumonia, metabolic abnormality, sepsis, ACS, NSTEMI Medical Records Attestation: I reviewed the patient's medical records. Home Medications Current Medication List: was personally reviewed by me Laboratory Data Attestation: I reviewed the patient's lab results. 05/27/25 06:40 05/27/25 06:40 Lab Results 05/27/25 05/27/25 05/27/25 Range/Units 06:40 06:57 07:56 WBC 9.20 (4.8-10.8) K/ul RBC 4.22 L (4.70-6.10) M/uL Hgb 13.0 L (14.0-18.0) g/dL Hct 37.1 L (42.0-52.0) % MCV 87.9 (80.0-100.0) fL MCH 30.8 (25.0-34.0) pg MCHC 35.0 (32.0-36.0) g/dL RDW Std Deviation 47.6 H (36.4-46.3) fL RDW Coeff of Valerie 14.6 H (11.5-14.5) % Plt Count 188 (130-400) K/uL MPV 10.5 (9.4-12.4) fL Immature Gran % (Auto) 0.4 % Neut % (Auto) 81.1 % Lymph % (Auto) 9.5 % [place] % (Auto) 8.4 % Eos % (Auto) 0.3 % Baso % (Auto) 0.3 % Neut # (Auto) 7.46 H (1.40-6.50) K/uL Lymph # (Auto) 0.87 L (1.20-3.40) K/uL [place] # (Auto) 0.77 H (0.11-0.59) K/uL Eos # (Auto) 0.03 (0.00-0.50) K/uL Baso # (Auto) 0.03 (0.00-0.20) K/uL Immature Gran # (Auto) 0.04 (0.01-0.20) K/uL Sodium 135 L (136-145) mmol/L Potassium 3.7 (3.5-5.1) mmol/L Chloride 103 (98-107) mmol/L Carbon Dioxide 23 (21-32) mmol/L Anion Gap 9 (3-11) BUN 18 (6-23) mg/dl Creatinine 1.26 (0.6-1.4) mg/dl Est Cr Clr Drug Dosing 37.8 ml/min eGFR 56.94 BUN/Creatinine Ratio 14.3 (10-20) Glucose 162 H (70-99(Fasting)) mg/dl Lactate 1.2 (0.4-2.0) mmol/L Calcium 8.4 L (8.6-10.3) mg/dl Magnesium 1.8 (1.7-2.4) mg/dl Total Bilirubin 0.5 (0.2-1.0) mg/dl Direct Bilirubin 0.2 (0-0.2) mg/dl AST 49 H (13-39) U/L ALT 84 H (7-52) U/L Alkaline Phosphatase 121 H (34-104) U/L Troponin I High Sens 27.1 H (0-20) pg/ml Total Protein 7.2 (6.0-8.3) gm/dl Albumin 4.1 (3.4-5.0) gm/dl Procalcitonin 0.16 (0-0.5) ng/ml Urine Color Yellow Urine Appearance Clear (Clear) Urine pH 5.5 (4.5-7.5) Ur Specific [place] 1.016 (1.000-1.030) Urine Protein 2+ H (Negative) Urine Glucose (UA) Negative (Negative) Urine Ketones Trace H (Negative) Urine Blood Trace H (Negative) Urine Nitrite Negative (Negative) Urine Bilirubin Negative (Negative) Urine Urobilinogen Negative (Negative) Ur Leukocyte Esterase Negative (Negative) Urine WBC (Auto) 0-5 (0-5) /hpf Urine RBC (Auto) 0-2 (0-2) /hpf U Hyaline Cast (Auto) 3-5 H (0-2) /lpf U Epithel Cells (Auto) 0-2 (0-2) /hpf Urine Bacteria (Auto) None Seen (None Seen) Urine Comment Adenovirus (PCR) (NotDetected) B. pertussis DNA (PCR) (NotDetected) B.parapertussis DNA PCR (NotDetected) C. pneumoniae DNA (PCR) (NotDetected) Coronavirus OC43 (PCR) (NotDetected) Coronavirus HKU1 (PCR) (NotDetected) Coronavirus 229E (PCR) (NotDetected) SARS-CoV-2 (PCR) (NotDetected) Coronavirus NL63 (PCR) (NotDetected) Human Metapneumovir PCR (NotDetected) Influenza Type A (PCR) (NotDetected) Influenza Type B (PCR) (NotDetected) M. pneumoniae (PCR) (NotDetected) Parainfluenza 1 (PCR) (NotDetected) Parainfluenza 2 (PCR) (NotDetected) Parainfluenza 3 (PCR) (NotDetected) Parainfluenza 4 (PCR) (NotDetected) RSV (PCR) (NotDetected) Entero/Rhino (PCR) (NotDetected) 05/27/25 05/27/25 Range/Units 08:49 09:18 WBC (4.8-10.8) K/ul RBC (4.70-6.10) M/uL Hgb (14.0-18.0) g/dL Hct (42.0-52.0) % MCV (80.0-100.0) fL MCH (25.0-34.0) pg MCHC (32.0-36.0) g/dL RDW Std Deviation (36.4-46.3) fL RDW Coeff of Valerie (11.5-14.5) % Plt Count (130-400) K/uL MPV (9.4-12.4) fL Immature Gran % (Auto) % Neut % (Auto) % Lymph % (Auto) % [place] % (Auto) % Eos % (Auto) % Baso % (Auto) % Neut # (Auto) (1.40-6.50) K/uL Lymph # (Auto) (1.20-3.40) K/uL [place] # (Auto) (0.11-0.59) K/uL Eos # (Auto) (0.00-0.50) K/uL Baso # (Auto) (0.00-0.20) K/uL Immature Gran # (Auto) (0.01-0.20) K/uL Sodium (136-145) mmol/L Potassium (3.5-5.1) mmol/L Chloride (98-107) mmol/L Carbon Dioxide (21-32) mmol/L Anion Gap (3-11) BUN (6-23) mg/dl Creatinine (0.6-1.4) mg/dl Est Cr Clr Drug Dosing ml/min eGFR BUN/Creatinine Ratio (10-20) Glucose (70-99(Fasting)) mg/dl Lactate (0.4-2.0) mmol/L Calcium (8.6-10.3) mg/dl Magnesium (1.7-2.4) mg/dl Total Bilirubin (0.2-1.0) mg/dl Direct Bilirubin (0-0.2) mg/dl AST (13-39) U/L ALT (7-52) U/L Alkaline Phosphatase (34-104) U/L Troponin I High Sens 29.1 H (0-20) pg/ml Total Protein (6.0-8.3) gm/dl Albumin (3.4-5.0) gm/dl Procalcitonin (0-0.5) ng/ml Urine Color Urine Appearance (Clear) Urine pH (4.5-7.5) Ur Specific [place] (1.000-1.030) Urine Protein (Negative) Urine Glucose (UA) (Negative) Urine Ketones (Negative) Urine Blood (Negative) Urine Nitrite (Negative) Urine Bilirubin (Negative) Urine Urobilinogen (Negative) Ur Leukocyte Esterase (Negative) Urine WBC (Auto) (0-5) /hpf Urine RBC (Auto) (0-2) /hpf U Hyaline Cast (Auto) (0-2) /lpf U Epithel Cells (Auto) (0-2) /hpf Urine Bacteria (Auto) (None Seen) Urine Comment Adenovirus (PCR) Not Detected (NotDetected) B. pertussis DNA (PCR) Not Detected (NotDetected) B.parapertussis DNA PCR Not Detected (NotDetected) C. pneumoniae DNA (PCR) Not Detected (NotDetected) Coronavirus OC43 (PCR) Not Detected (NotDetected) Coronavirus HKU1 (PCR) Not Detected (NotDetected) Coronavirus 229E (PCR) Not Detected (NotDetected) SARS-CoV-2 (PCR) Not Detected (NotDetected) Coronavirus NL63 (PCR) Not Detected (NotDetected) Human Metapneumovir PCR DETECTED A (NotDetected) Influenza Type A (PCR) Not Detected (NotDetected) Influenza Type B (PCR) Not Detected (NotDetected) M. pneumoniae (PCR) Not Detected (NotDetected) Parainfluenza 1 (PCR) Not Detected (NotDetected) Parainfluenza 2 (PCR) Not Detected (NotDetected) Parainfluenza 3 (PCR) Not Detected (NotDetected) Parainfluenza 4 (PCR) Not Detected (NotDetected) RSV (PCR) Not Detected (NotDetected) Entero/Rhino (PCR) Not Detected (NotDetected) Imaging Data Radiologist's Impression: Chest X-Ray 05/27/25 06:38 XR chest 1V portable CLINICAL HISTORY: Sepsis COMPARISON STUDY: 08/11/2022 FINDINGS: Stable pacemaker. Stable mild cardiomegaly without pulmonary vascular congestion. Stable minimal elevation of the left hemidiaphragm. There is interval mild stranding opacity in medial right lung base. No other consolidation or pleural effusion seen. No pneumothorax. IMPRESSION: Atelectasis or scarring versus early pneumonia medial right lung base. ACT 112: Negative or not required by law. Electronically signed by: Doc Valdez M.D. 05/27/2025 8:00 AM ECG Data Attestation: I personally reviewed and interpreted this ECG as follows: Indication: + weakness Rate (beats per minute): 88 ECG Intervals/blocks: + First degree AV block, + Right Bundle branch block and + Normal QT ECG [place]: + Left axis deviation Comparison ECG Date: from (08/11/2022) Change: no significant change Blood Pressure Blood Pressure Findings: Elevated blood pressure Blood Pressure Disposition: elevated BP felt to be situational MDM Narrative Patient is an 80-year-old male presents for increased urinary frequency and generalized weakness. Sepsis workup initiated based on report of fever and generalized weakness from EMS. Patient is afebrile and nontoxic-appearing here today. No leukocytosis noted. No evidence of endorgan damage or sepsis. Lactate within normal limits. No significant metabolic abnormality. Initial troponin of 27. Likely secondary to slight demand ischemia in the setting of possible dehydration or ongoing viral illness. Metapneumovirus positive here today. Repeat troponin after IV fluids at 29. Baseline within normal limits. Again I feel this is most likely related to demand however will admit for ACS rule out. EKG without any ischemic changes no indication for heparin at this time. UA without signs of infection. Chest x-ray shows atelectasis versus scarring in the medial right lung base. Because of the confirmed metapneumovirus and absence of persistent fever and leukocytosis I have low suspicion for concurrent bacterial infection I will hold on antibiotics at this time. Stable for admission to hospitalist service for ACS rule out. Impression & Plan Elevated troponin, Upper respiratory infection, viral Discharge Plan Visit Data Chief Complaint: Weakness Stated Complaint: weakness ED Provider: Amado Garcia Discharge Problem: Elevated troponin, Upper respiratory infection, viral Patient Disposition: Admitted As Inpatient Condition: Good Forms Stand Alone Forms: My [facility] Prescriptions Prescriptions: No Action atorvastatin 40 mg tablet 40 mg PO DAILY clopidogrel 75 mg tablet 75 mg PO DAILY doxepin 10 mg capsule 10 mg PO HS paroxetine HCl 20 mg tablet 20 mg PO DAILY metformin 1,000 mg tablet 1,000 mg PO BID mirabegron [Myrbetriq] 50 mg Tablet Extended Release 24 Hr 50 mg PO DAILY glipizide 2.5 mg tablet extended release 24hr 2.5 mg PO DAILY oxybutynin chloride 5 mg tablet extended release 24hr 5 mg PO DAILY metoprolol succinate 25 mg tablet extended release 24 hr 25 mg PO DAILY sertraline 50 mg tablet 50 mg PO QAM finasteride 5 mg tablet 5 mg PO DAILY Bydureon BCise 2 mg/0.85 mL auto-injector 2 mg SUBCUT UD cefdinir 300 mg capsule 300 mg PO BID Qty: 14 0RF Referrals Referrals: Danielito Moore DO [Primary Care Provider] -
--- NOTE | 2025-05-27 08:01 | XRay Report ---
XR chest 1V portable CLINICAL HISTORY: Sepsis COMPARISON STUDY: 08/11/2022 FINDINGS: Stable pacemaker. Stable mild cardiomegaly without pulmonary vascular congestion. Stable mi nimal elevation of the left hemidiaphragm. There is interval mild stranding opacity in medial right l ramesh base. No other consolidation or pleural effusion seen. No pneumothorax. IMPRESSION: Atelectasis or scarring versus early pneumonia medial right lung base. ACT 112: Negative or not required by law. Electronically signed by: Doc Valdez M.D. 05/27/2025 8:00 AM
[2025-05-27 08:14] LABS: Appearance Urine Clear (Clear); Bacteria Urine Automated None Seen (None Seen); Epithelial Cell Urine Auto 0-2 /hpf (0-2); Glucose Urine UA Negative (Negative); RBC Urine Automated 0-2 /hpf (0-2); WBC Urine Automated 0-5 /hpf (0-5)
[2025-05-27 10:15] LABS: Chlamydia pneumoniae PCR Not Detected (NotDetected); Coronavirus 229E PCR Not Detected (NotDetected); Coronavirus CoV-2 (COVID19)PCR Not Detected (NotDetected); Coronavirus HKU1 PCR Not Detected (NotDetected); Coronavirus NL63 PCR Not Detected (NotDetected); Coronavirus OC43PCR Not Detected (NotDetected); Human Metapneumovirus PCR DETECTED (NotDetected); Parainfluenza Virus 1 PCR Not Detected (NotDetected); Parainfluenza Virus 2 PCR Not Detected (NotDetected); Parainfluenza Virus 3 PCR Not Detected (NotDetected); Parainfluenza Virus 4 PCR Not Detected (NotDetected); Respiratory Syncytial VirusPCR Not Detected (NotDetected); Rhinovirus/Enterovirus PCR Not Detected (NotDetected)
--- NOTE | 2025-05-27 10:49 | History & Physical Report ---
Date of Service May 27, 2025 Assessment & Plan (1) Infection due to human metapneumovirus (hMPV): (2) Elevated troponin: (3) Generalized weakness: (4) Increased urinary frequency: (5) Transaminitis: Plan Patient is an 80y/o M with PMHx significant for syncope due to intermittent CHB s/p pacemaker insertion in October 2019, 1st-degree AV block, chronic RBBB, history of NSVT, SHARI on BiPAP HS, HLD, history of CVA with residual RLE weakness, DMII, right carotid artery stenosis, urge incontinence, BPH with LUTS, anxiety, insomnia, history of nonmelanoma skin cancer and history of Lyme disease who presented to the ED via EMS with c/o generalized weakness, nonproductive cough and increased urinary frequency. Human metapneumovirus Reportedly patient was febrile en route to ED via EMS, given dose of IV cefepime in ED and blood cx were obtained. Hemodynamically stable, afebrile since arrival to ED. Remains saturating well on RA. No supplemental O2 requirement. CXR: Atelectasis or scarring vs early pneumonia medial right lung base. Chest CT obtained for further evaluation. Chest CT: Early pneumonia vs atelectasis in the lung bases. No leukocytosis and negative procalcitonin so doubt bacterial component. Will monitor off ABX for now. Favoring atelectasis > PNA at this time given the above. ISP ordered. Continue symptomatic management with pulm toileting, PRN nebs and Mucinex BID. Given 1L IVF in ED. Feel can hold off on further IVF for now, diet ordered. Elevated troponin Likely demand ischemia ISO above. Denies any chest pain. EKG appears grossly unchanged compared to prior, known h/o chronic RBBB. Follow troponin trend. EKG with chest pain PRN. TTE, 03/2025: EF 60-64%, mildly increased concentric LV wall thickness, grade I DD, mod AV sclerosis (stenosis absent), mild TR -- no significant change from prior. Feel can hold off on updating TTE for now unless pt develops chest pain and/or troponin trends upward. Monitor on telemetry for now. Generalized weakness: Suspect 2/2 above. Obtain PT/OT evals to determine if any DC needs. Increased urinary frequency BPH with LUTS and urge incontinence UA and urine cx completed by PCP yesterday which both came back unremarkable. Repeat UA today also without evidence of infection. Unclear etiology; possibly related to underlying BPH, urge incontinence. Monitor urine output. Continue Ditropan XL, Proscar. HLD: Continue statin therapy, Plavix. Check updated fasting lipid panel in AM. Transaminitis: Suspect viral-induced. Follow repeat LFTs in AM. If LFTs do not improve, could then consider RUQ US for further eval. DMII: A1c 6.9% 3mo ago, will repeat in AM. Hold home reg. SSI protocol for now. Monitor BSG checks ACHS. CC/HH diet. SHARI on BiPAP HS: Continue HS as per protocol. Anxiety: Continue home psych med regimen. QTc 454ms on admitting EKG. DVT Prophylaxis: SQ heparin Code Status: FULL CODE Disposition: Observation in med/telemetry Patient seen in collaboration with Dr. Brunner. Please see addendum. I spent a total of 62 minutes coordinating, documenting, and providing care for this patient excluding time spent in the performance of separately billed services or time spent by another provider/QHP. This included personally rev iewing all current laboratories and imaging studies, medical reconciliation, outpatient chart review and discussion with specialists. History of Present Illness Chief Complaint: Generalized weakness, nonproductive cough and increased urinary frequency Primary Care Provider: Danielito Moore DO Patient is an 80y/o M with PMHx significant for syncope due to intermittent CHB s/p pacemaker insertion in October 2019, 1st-degree AV block, chronic RBBB, history of NSVT, SHARI on BiPAP HS, HLD, history of CVA with residual RLE weakness, DMII, right carotid artery stenosis, urge incontinence, BPH with LUTS, anxiety, insomnia, history of nonmelanoma skin cancer and history of Lyme disease who presented to the ED via EMS with c/o generalized weakness, nonproductive cough and increased urinary frequency. Reports generalized weakness, nonproductive cough and increased urinary frequency x past few days. Was seen by PCP yesterday for these complaints. UA grossly unremarkable, urine culture without significant growth at that time. Was instructed to use Mucinex BID for the cough which seems to be helping per his at bedside. Still feeling quite weak. No reported falls. Does endorse a low-grade fever at home; however, upon further questioning, he mentions his Tmax was 97.4F about 2 days ago. Uses cane or walker for ambulation. Lives with his . Smokes cigars occasionally. Denies any chest pain or SOB. Still experiencing some increased urinary frequency. Recalls having some dysuria a few days ago but this has since resolved. Denies any hematuria. Moving bowels okay. Appetite slightly decreased since symptoms started. His has been exhibiting similar respiratory symptoms. Allergies Allergy/AdvReac Type Severity Reaction Status Date / Time No Known Allergies Allergy Unverified 02/19/20 06:20 Home Medications Medication Instructions Recorded Confirmed Type atorvastatin 40 mg tablet 40 mg PO DAILY 11/06/19 05/27/25 History clopidogrel 75 mg tablet 75 mg PO DAILY 11/06/19 05/27/25 History doxepin 10 mg capsule 10 mg PO HS 11/06/19 05/27/25 History metformin 1,000 mg tablet 1,000 mg PO BID 11/06/19 05/27/25 History paroxetine HCl 20 mg tablet 20 mg PO DAILY 11/06/19 05/27/25 History mirabegron 50 mg tablet,extended 50 mg PO DAILY 02/19/20 05/27/25 History release 24 hr (Myrbetriq) cefdinir 300 mg capsule 300 mg PO BID #14 caps 12/07/23 05/27/25 Rx exenatide microspheres 2 mg/0.85 2 mg subcut UD 12/07/23 05/27/25 History mL subcutaneous auto-injector (Benjamin Martinez) finasteride 5 mg tablet 5 mg PO DAILY 12/07/23 05/27/25 History glipizide 2.5 mg tablet, extended 2.5 mg PO DAILY 12/07/23 05/27/25 History release 24 hr metoprolol succinate 25 mg 25 mg PO DAILY 12/07/23 05/27/25 History tablet,extended release 24 hr oxybutynin chloride 5 mg 5 mg PO DAILY 12/07/23 05/27/25 History tablet,extended release 24 hr sertraline 50 mg tablet 50 mg PO QAM 12/07/23 05/27/25 History Past Med/Surg History Problem List (Updated 05/27/25 @ 14:24 by Background Daemon) Increased urinary frequency Upper respiratory infection, viral (Acute) Elevated troponin (Acute) Infection due to human metapneumovirus (hMPV) Carotid artery disease 11/06/19 duplex showed 50% stenosis R ICA Positive Lyme disease serology Anxiety PAD (peripheral artery disease) Pneumonia Symptomatic bradycardia Near syncope (Acute) Hyperlipidemia Diabetes Sleep apnea (Chronic) CVA (cerebral vascular accident) TIA (transient ischemic attack) Social History Smoking Status: Former smoker Tobacco Type: Cigars Hx Alcohol Use: No Hx Substance Use: No Preferred Language: Mexican Communication Ability: Effective Beliefs That Will Affect Care: None Current Living Situation: Spouse Feels Safe at Home: Yes Assistive Devices: Brace/Splint/Immobilizer Review of Systems Review of Systems: At least ten systems reviewed and negative, except as noted in the HPI. Physical Exam Physical Exam: General: Elderly M, NAD, laying down flat in bed, A&Ox3, at bedside HEENT: Normocephalic, atraumatic, somewhat dry mucous membranes Respiratory: Normal respiratory effort, saturating in low to mid 90s on RA, decreased bilaterally, no wheeze/rhonchi, + dry cough Cardiovascular: RRR, no BLE edema Abdomen/GI: Active bowel sounds, soft, nontender to palpation in all quadrants Extremities/Musculoskeletal: No cyanosis or clubbing, extremities motor strength intact, moves all extremities Neurologic: No overt focal deficits, CN's II-XI not formally tested but appear grossly intact bilaterally Results & Data Results & Data Vital Signs (Past 12 Hours) Vital Signs Temp Pulse Resp BP Pulse Ox O2 Del Method 05/27/25 07:30 83 19 142/77 H 95 05/27/25 07:00 79 14 128/71 95 05/27/25 06:39 85 19 137/70 93 05/27/25 06:37 85 05/27/25 06:37 37.1 C 86 20 137/70 93 Room Air Laboratory Results Short CBC 05/27/25 Range/Units 06:40 WBC 9.20 (4.8-10.8) K/ul Hgb 13.0 L (14.0-18.0) g/dL Hct 37.1 L (42.0-52.0) % Plt Count 188 (130-400) K/uL BMP 05/27/25 06:40 Sodium 135 L Potassium 3.7 Chloride 103 Carbon Dioxide 23 BUN 18 Creatinine 1.26 Glucose 162 H Calcium 8.4 L Liver Function 05/27/25 Range/Units 06:40 Total Bilirubin 0.5 (0.2-1.0) mg/dl Direct Bilirubin 0.2 (0-0.2) mg/dl AST 49 H (13-39) U/L ALT 84 H (7-52) U/L Alkaline Phosphatase 121 H (34-104) U/L Albumin 4.1 (3.4-5.0) gm/dl Urine 05/27/25 Range/Units 07:56 Urine Color Yellow Urine Appearance Clear (Clear) Urine pH 5.5 (4.5-7.5) Ur Specific [place] 1.016 (1.000-1.030) Urine Protein 2+ H (Negative) Urine Glucose (UA) Negative (Negative) Diagnostic Findings Chest X-Ray 05/27/25 06:38 XR chest 1V portable CLINICAL HISTORY: Sepsis COMPARISON STUDY: 08/11/2022 FINDINGS: Stable pacemaker. Stable mild cardiomegaly without pulmonary vascular congestion. Stable minimal elevation of the left hemidiaphragm. There is interval mild stranding opacity in medial right lung base. No other consolidation or pleural effusion seen. No pneumothorax. IMPRESSION: Atelectasis or scarring versus early pneumonia medial right lung base. ACT 112: Negative or not required by law. Electronically signed by: Doc Valdez M.D. 05/27/2025 8:[address] 05/27/25 11:45 CT chest diagnostic wo con CT DOSE: 316.84 mGy.cm CLINICAL HISTORY: R/o PNA. TECHNIQUE: Multiaxial CT images of the chest were performed without contrast. A dose lowering technique was utilized adhering to the principles of ALARA. COMPARISON STUDY: Chest x-ray earlier today FINDINGS: There is motion artifact due to difficulty breath holding. There are mild airway secretions. There is moderate emphysema. There is some possible mild mucous plugging distally at the lower lobe bronchi in the lung bases, but this area is obscured by motion. There is a small area of reticular and patchy groundglass opacity at the posterior lung base and possible small area medial right lung base. These could represent early pneumonia or atelectasis. There is no lobar consolidation. No pleural effusion. No enlarged adenopathy. No pericardial effusion. There are coronary artery calcifications. Cardiac pacer is present. There is osteopenia. No acute osseous finding seen. There are mild diffuse degenerative changes of the thoracic spine. IMPRESSION: Early pneumonia versus atelectasis in the lung bases. ACT 112: Negative or not required by law. Electronically signed by: Doc Valdez M.D. 05/27/2025 12:44 PM Medications Administered Discontinued Medications Sodium Chloride (Nss) 1,000 mls @ 999 mls/hr IV .Q1H1M CYRIL Stop: 05/27/25 07:45 Last Admin: 05/27/25 07:09 Dose: 999 mls/hr Documented By: KEVIN Cefepime HCl (Maxipime 2000mg) 2,000 mg in 20 mls @ 5 mls/min IV NOW STA; Protocol Stop: 05/27/25 06:41 Last Admin: 05/27/25 07:10 Dose: 5 mls/min Documented By: KEVIN Supervising Physician Co-Signing Physician Notes 80 yo gentleman presents w/ generalized weakness, nonproductive cough and increased frequency for 3-4 days RN CASE MANAGEMENT. He was noted to have nMNV URTI, CT chest neg for pneumonia rather atelectasis. Procal and wbc wnl. Pt denies chest pain, belly pain, N/V/D. Pt denies pain or burn w/ passing urine. Demand ischemia, Generalized weakness and transaminitis iso hMNV UTIR, provide supportive care, labs in am, pt/ot. On Exam: pt on RA, occ bb crackles, non tender abd. rest as above. Total time spent independently: 27 min. I have seen and examined the patient and have discussed the case with the provider above. I agree with the assessment and plan as stated.
[2025-05-27] MEDS ORDERED: GLUCOSE 10 TAB/TUBE PO PRN (11:57)
[2025-05-27] MEDS ORDERED: CARBOHYDRATES FOR HYPOGLYCEMIA PO PRN (11:57)
[2025-05-27] MEDS ORDERED: PHARMACY GLYCEMIC MGMT CONSULT PRN (11:57)
[2025-05-27] MEDS ORDERED: DEXTROSE 50% 50 ML SYRINGE IV PRN (11:57)
[2025-05-27] MEDS ORDERED: GLUCOSE 40% GEL 15 GM TUBE PO PRN (11:57)
[2025-05-27] MEDS ORDERED: GLUCAGON FOR INJ 1 MG VIAL SQ PRN (11:57)
--- NOTE | 2025-05-27 12:46 | CT Scan Report ---
CT chest diagnostic wo con CT DOSE: 316.84 mGy.cm CLINICAL HISTORY: R/o PNA. TECHNIQUE: Multiaxial CT images of the chest were performed without contrast. A dose lowering techni que was utilized adhering to the principles of ALARA. COMPARISON STUDY: Chest x-ray earlier today FINDINGS: There is motion artifact due to difficulty breath holding. There are mild airway secretions . There is moderate emphysema. There is some possible mild mucous plugging distally at the lower lobe bronchi in the lung bases, but this area is obscured by motion. There is a small area of reticular a nd patchy groundglass opacity at the posterior lung base and possible small area medial right lung ba se. These could represent early pneumonia or atelectasis. There is no lobar consolidation. No pleural effusion. No enlarged adenopathy. No pericardial effusion. There are coronary artery calcifications. Cardiac pacer is present. There is osteopenia. No acute osseous finding seen. There are mild diffuse degenerative changes of the thoracic spine. IMPRESSION: Early pneumonia versus atelectasis in the lung bases. ACT 112: Negative or not required by law. Electronically signed by: Doc Valdez M.D. 05/27/2025 12:44 PM
[2025-05-27] MEDS ORDERED: ALBUT/IPRATROP 3MG/0.5MG NEB 3 ML VIAL NEB PRN (13:22)
[2025-05-27] MEDS: guaiFENesin 600 MG TABCR PO SCH (13:56)
[2025-05-27] MEDS ORDERED: MAGNESIUM HYDROXIDE SUSP 30 ML UDC PO PRN (14:28)
[2025-05-27] MEDS ORDERED: ONDANSETRON INJ 2 MG/ML 2 ML VIAL IV PRN (14:28)
[2025-05-27] MEDS ORDERED: ACETAMINOPHEN 325 MG TAB PO PRN (14:28)
[2025-05-27] MEDS ORDERED: POLYETHYLENE (MIRALAX) 17 GM PACK PO PRN (14:28)
[2025-05-27 14:59] LABS: Hemoglobin A1C 8.3 % (4.5-5.6)
[2025-05-27] MEDS: CLOPIDOGREL BISULFATE 75 MG TAB PO SCH (16:14)
[2025-05-27] MEDS: OXYBUTYNIN CHLORIDE XL 5 MG TABCR PO SCH (16:14)
[2025-05-27] MEDS: METOPROLOL SUCC 25MG EXT REL TAB PO SCH (16:14)
[2025-05-27] MEDS: ATORVASTATIN 40 MG TAB PO SCH (16:14)
[2025-05-27] MEDS: VIBEGRON 75 MG TAB PO SCH (16:14)
[2025-05-27] MEDS: SERTRALINE HCL 50 MG TABLET PO SCH (16:15)
[2025-05-27] MEDS: INSULIN ASPART PER UNIT CHARGE SC SCH (17:17)
[2025-05-27] MEDS: LANTUS PER UNIT CHARGE SC SCH (21:47)
[2025-05-27] MEDS: DOXEPIN HCL 10 MG CAPSULE PO SCH (21:53)
[2025-05-27] MEDS: HEPARIN SOD 5,000 UNIT/0.5 ML VIAL SQ SCH (21:53)
[2025-05-28 06:15] LABS: Hematocrit (blood only) 37.9 % (42.0-52.0); Hemoglobin 12.5 g/dL (14.0-18.0); Mean Corpuscular Hemoglobin 29.7 pg (25.0-34.0); Mean Corpuscular Volume 90.0 fL (80.0-100.0); Platelet Count 188 K/uL (130-400); RDW Standard Deviation 48.8 fL (36.4-46.3); Red Blood Count 4.21 M/uL (4.70-6.10); White Blood Count 8.18 K/ul (4.8-10.8)
[2025-05-28 06:45] LABS: Alanine Aminotransferase 56.0 U/L (7-52); Albumin Globulin Ratio 1.3 (0.9-2); Albumin Level 3.9 gm/dl (3.4-5.0); Alkaline Phosphatase 104.0 U/L (34-104); Anion Gap 8.0 (3-11); Bilirubin,Total 0.6 mg/dl (0.2-1.0); Blood Urea Nitrogen 18.0 mg/dl (6-23); Calcium 8.5 mg/dl (8.6-10.3); Carbon Dioxide 25.0 mmol/L (21-32); Chloride 104.0 mmol/L (98-107); Cholesterol 57.0 mg/dl (0-200); Creatinine Clr Calc Pharmacy 45.4 ml/min; Globulin 3.0 gm/dl (2.5-4.0); Glucose 125.0 mg/dl (70-99(Fasting)); HDL Cholesterol 26.0 mg/dl; Magnesium 2.0 mg/dl (1.7-2.4); Potassium 3.7 mmol/L (3.5-5.1); Sodium 137.0 mmol/L (136-145); Total Protein 6.9 gm/dl (6.0-8.3); Triglycerides 66.0 mg/dl (0-150)
[2025-05-28 07:20] LABS: Hemoglobin A1C 8.2 % (4.5-5.6)
[2025-05-28] MEDS: FINASTERIDE 5 MG TAB PO SCH (07:34)
[2025-05-28 12:13] VITALS: BP 120/64; PULSE 64; RESP 16; TEMP 97.8; O2SAT 93
[2025-05-28] MEDS ORDERED: FLUTICASONE PROPIONATE NA SPR 16 GM BTL SCH (12:30)
--- NOTE | 2025-05-28 12:43 | Discharge Summary ---
Date of Service May 28, 2025 Admission HPI Per Admitting Provider Patient is an 80y/o M with PMHx significant for syncope due to intermittent CHB s/p pacemaker insertion in October 2019, 1st-degree AV block, chronic RBBB, history of NSVT, SHARI on BiPAP HS, HLD, history of CVA with residual RLE weakness, DMII, right carotid artery stenosis, urge incontinence, BPH with LUTS, anxiety, insomnia, history of nonmelanoma skin cancer and history of Lyme disease who presented to the ED via EMS with c/o generalized weakness, nonproductive cough and increased urinary frequency. Reports generalized weakness, nonproductive cough and increased urinary frequency x past few days. Was seen by PCP yesterday for these complaints. UA grossly unremarkable, urine culture without significant growth at that time. Was instructed to use Mucinex BID for the cough which seems to be helping per his w zenobia at bedside. Still feeling quite weak. No reported falls. Does endorse a low- grade fever at home; however, upon further questioning, he mentions his Tmax was 97.4F about 2 days ago. Uses cane or walker for ambulation. Lives with his . Smokes cigars occasionally. Denies any chest pain or SOB. Still experiencing some increased urinary frequency. Recalls having some dysuria a few days ago but this has since resolved. Denies any hematuria. Moving bowels okay. Appetite slightly decreased since symptoms started. His has been exhibiting similar respiratory symptoms. Admission Exam Per Admitting Provider General: Elderly M, NAD, laying down flat in bed, A&Ox3, at bedside HEENT: Normocephalic, atraumatic, somewhat dry mucous membranes Respiratory: Normal respiratory effort, saturating in low to mid 90s on RA, decreased bilaterally, no wheeze/rhonchi, + dry cough Cardiovascular: RRR, no BLE edema Abdomen/GI: Active bowel sounds, soft, nontender to palpation in all quadrants Extremities/Musculoskeletal: No cyanosis or clubbing, extremities motor strength intact, moves all extremities Neurologic: No overt focal deficits, CN's II-XI not formally tested but appear grossly intact bilaterally Principal Diagnosis Human metapneumovirus Discharge Exam GENERAL: Alert and oriented x3. NAD, ambulating in room on RA, no sob HEENT: No pallor, no icterus. Pupils equal, round and reactive to light. Oral mucosa moist. NECK: No JVD, no neck masses. HEART: S1 and S2 heard. Regular rate and rhythm. No murmur, no gallop. RESPIRATORY SYSTEM: Normal AP diameter. No accessory muscle use. No wheezing, no crackles. ABDOMEN: Soft, bowel sounds present, nontender, no distention. CENTRAL NERVOUS SYSTEM: No facial droop. Speech is clear. Obeys simple commands. Moves extremities. EXTREMITIES: No edema, no erythema seen. Discharge Data Allergies Allergy/AdvReac Type Severity Reaction Status Date / Time No Known Allergies Allergy Unverified 02/19/20 06:20 Consultations 05/27/25 10:55 ED Decision to Admit Stat Ordered Studies 05/27/25 11:45 CT chest diagnostic wo con Stat Hospital Course (1) Infection due to human metapneumovirus (hMPV): (2) Elevated troponin: (3) Generalized weakness: (4) Increased urinary frequency: (5) Transaminitis: Plan Patient is an 80y/o M with PMHx significant for syncope due to intermittent CHB s/p pacemaker insertion in October 2019, 1st-degree AV block, chronic RBBB, history of NSVT, SHARI on BiPAP HS, HLD, history of CVA with residual RLE weakness, DMII, right carotid artery stenosis, urge incontinence, BPH with LUTS, anxiety, insomnia, history of nonmelanoma skin cancer and history of Lyme disease who presented to the ED via EMS with c/o generalized weakness, nonproductive cough and increased urinary frequency. Human metapneumovirus Reportedly patient was febrile en route to ED via EMS, given dose of IV cefepime in ED and blood cx were obtained. Hemodynamically stable, afebrile since arrival to ED. Remains saturating well on RA. No supplemental O2 requirement. CXR: Atelectasis or scarring vs early pneumonia medial right lung base. Chest CT obtained for further evaluation. Chest CT: Early pneumonia vs atelectasis in the lung bases. No leukocytosis and negative procalcitonin so doubt bacterial component. Will monitor off ABX for now. Favoring atelectasis > PNA at this time given the above. ISP ordered. Continue symptomatic management with pulm toileting, PRN nebs and Mucinex BID. pt eating well, ambulating on RA with no sob, feels back to baseline strength Pt's at bedside who feels pt has significantly improved and are comfortable taking him home They have been educated that he might need antibiotic treatment if he gets fever or his cough worsens w/ yellow sputum. Elevated troponin Likely demand ischemia ISO above. Denies any chest pain. EKG appears grossly unchanged compared to prior, known h/o chronic RBBB. Follow troponin trend. EKG with chest pain PRN. TTE, 03/2025: EF 60-64%, mildly increased concentric LV wall thickness, grade I DD, mod AV sclerosis (stenosis absent), mild TR -- no significant change from prior. no chest pain, vitals stable, no sob. Generalized weakness: Suspect 2/2 above. Ambulating in room, pt and his feels he is back to baseline. Increased urinary frequency BPH with LUTS and urge incontinence UA and urine cx completed by PCP yesterday which both came back unremarkable. Repeat UA today also without evidence of infection. Unclear etiology; possibly related to underlying BPH, urge incontinence. Monitor urine output. Continue Ditropan XL, Proscar. HLD: Continue statin therapy, Plavix. LDL 18 Transaminitis: Suspect viral-induced. LFT downtrended nicely. DMII: A1c 6.9% 3mo ago, will repeat in AM. Hold home reg. SSI protocol for now. Monitor BSG checks ACHS. CC/HH diet. pt advised to f/u w/ glycemic pharmacy on dc closely. SHARI on BiPAP HS: Continue HS as per protocol. Anxiety: Continue home psych med regimen. QTc 454ms on admitting EKG. DVT Prophylaxis: SQ heparin Code Status: FULL CODE patient is being discharged home with following instructions at the point of discharge: Follow-up with your primary care physician within a week time and likely you will need labs CBC/CMP/magnesium/phosphorus. You were diagnosed with viral respiratory tract infection, as discussed at the bedside if you have increasing cough with yellow sputum and/or fever you might need antibiotic treatment. Recommend contacting your primary care office or emergency as appropriate. Follow up on final results of blood cultur Occasionally I did only once I did I smoke for 6 months it was good somebody came to my nose and smokede drawn while inpatient during your PCP visit within a week time. Take your medications as prescribed. Please make sure that you are able to get your medications today by calling your pharmacy before you leave the hospital so that your treatment continuity is not broken. Home Health Attestation I certify that this patient is under my care and that I, or a physicians front office assistant working with me, had a face to-face encounter that meets the home health [id number] encounter requirements with this patient. The encounter with the patient was in whole, or in part, for the following medical condition, which is the primary reason for home health care (list medical condition): I certify that, based on my findings, the following services are medically necessary home health services: My clinical findings support the need for the above services because: Further, I certify that my clinical findings support that this patient is homebound (i.e. absences from home require considerable and taxing effort and are for medical reasons or shinto services or infrequently or of short duration when for other reasons) because: Certification for Home Health Services: Based on the above findings, I certify that this patient is confined to the home and needs intermittent mcc care, physical therapy and/or speech therapy or continues to need occupational therapy. The patient is under my care, and I have initiated the establishment of the plan of care. This patient will be followed by a physician who will periodically review the plan of care. Total Time Total Time Spent Total Time Spent (In Minutes): 35 Discharge Plan Discharge Items Patient Disposition: Home - Self-Care Reason For Visit: POSSIBLE PNA, HUMAN METAPNEUMOVIRUS Discharge Diagnosis: Human metapneumovirus Condition on Discharge: Good Activity: Resume your previous activity Non-emergency contact: Primary Care Provider Call non-emergency contact if: you have any medication questions and your symptoms worsen Follow-up/Referrals: Danielito Moore, [Primary Care Provider] - Diet: Carb Consistent or DM2 and Heart Healthy Diet Texture: Easy to Chew Addtl Attending Provider Instructions: Follow-up with your primary care physician within a week time and likely you will need labs CBC/CMP/magnesium/phosphorus. You were diagnosed with viral respiratory tract infection, as discussed at the bedside if you have increasing cough with yellow sputum and/or fever you might need antibiotic treatment. Recommend contacting your primary care office or emergency as appropriate. Follow up on final results of blood cultur Occasionally I did only once I did I smoke for 6 months it was good somebody came to my nose and smokede drawn while inpatient during your PCP visit within a week time. Take your medications as prescribed. Please make sure that you are able to get your medications today by calling your pharmacy before you leave the hospital so that your treatment continuity is not broken. Pending Studies at Discharge: Yes Stand-Alone Forms: [facility], Smoking Cessation Medications and DC Order Prescriptions: New fluticasone propionate 50 mcg/actuation [place],Suspension 2 spray NA DAILY 14 Days Qty: 16 0RF guaifenesin [Mucinex] 600 mg Tablet Extended Release 12hr 1,200 mg PO Q12 5 Days Qty: 20 0RF Continued atorvastatin 40 mg tablet 40 mg PO DAILY clopidogrel 75 mg tablet 75 mg PO DAILY doxepin 10 mg capsule 10 mg PO HS paroxetine HCl 20 mg tablet 20 mg PO DAILY metformin 1,000 mg tablet 1,000 mg PO BID mirabegron [Myrbetriq] 50 mg Tablet Extended Release 24 Hr 50 mg PO DAILY glipizide 2.5 mg tablet extended release 24hr 2.5 mg PO DAILY oxybutynin chloride 5 mg tablet extended release 24hr 5 mg PO DAILY metoprolol succinate 25 mg tablet extended release 24 hr 25 mg PO DAILY sertraline 50 mg tablet 50 mg PO QAM finasteride 5 mg tablet 5 mg PO DAILY Bydureon BCise 2 mg/0.85 mL auto-injector 2 mg SUBCUT UD Discontinued cefdinir 300 mg capsule 300 mg PO BID Qty: 14 0RF Discharge Orders: Discharge Order (Routine); Ordered 05/28/25 Ordered By: Jessica Brunner Admission Data Admit Date/Time: 05/27/25 11:56 Attending Provider: Jessica Brunner Admit Provider: Jessica Brunner Primary Care Provider: Danielito Moore Other Providers: Jessica Brunner
--- NOTE | 2025-05-28 20:57 | Electrocardiogram Report ---
Test Reason : Blood Pressure : */* mmHG Vent. Rate : 88 BPM Atrial Rate : 88 BPM P-R Int : 202 ms QRS Dur : 134 ms QT Int : 376 ms P-R-T Axes : -28 [phone] 59 degrees QTcB Int : 454 ms Normal sinus rhythm Right bundle branch block Left anterior fascicular block Abnormal ECG When compared with ECG of 11-Aug-2022 03:18, Premature ventricular complexes are no longer Present Confirmed by Lor Womack ([place]) on 05/28/2025 8:57:09 PM Referred By: Confirmed By: Lor Womack
== END 2025-05-28 13:22 | disposition home or self-care (01) ==
LOC: ED 06:30 → EDINP 06:30 → 2N 18:07